=== PATIENT | female | born 1945 | race Caucasian/White ===

== ENCOUNTER → 2017-07-06 | Outpatient (CLI) | payer MEDICARE ==
[2016-09-03 10:51] VITALS: BP 140/54
[~2017-07-06] MED LIST: APIX5TAB3 PO; ASPI325T8 PO; DILT180C2 PO; DOCU-109 PO; Diltiazem Hcl PO; ESTR30CR VG; LOSA25TA4 PO; NAPR220C4 PO; NAPR250T6 PO; NAPR500T4 PO; OMEG1CAP6 PO; OMEP20CA5 PO; PROP150T2 PO; PROP225T2 PO; SOTA120T27 PO
[2017-07-06 10:24] LABS: BASO # 0.1 x10^3/uL (0.0-0.2); BASO % 1 % (0-3); EOS # 0.3 x10^3/uL (0.0-0.7); EOS % 5 % (0-3); HEMATOCRIT 36.9 % (36.0-47.0); HEMOGLOBIN 12.3 g/dL (12.0-15.5); LYMPH # 1.7 x10^3/uL (1.0-4.8); LYMPH % 29 % (24-48); MEAN CORPUSCULAR HEMOGLOBIN 31 pg (25-35); MEAN CORPUSCULAR HGB CONC 33 g/dL (31-37); MEAN CORPUSCULAR VOLUME 94 fL (79-100); MONO # 0.4 x10^3/uL (0.0-1.1); MONO % 7 % (0-9); NEUT # 3.4 x10^3uL (1.8-7.7); NEUT % 57 % (31-73); PLATELET COUNT 201 x10^3/uL (140-400); RED BLOOD COUNT 3.94 x10^6/uL (3.50-5.40); RED CELL DISTRIBUTION WIDTH 14.3 % (11.5-14.5); WHITE BLOOD COUNT 5.9 x10^3/uL (4.0-11.0)
[2017-07-06 10:31] LABS: BILIRUBIN,URINE NEG (NEG); CALCIUM 8.3 mg/dL (8.5-10.1); CLARITY,URINE CLEAR; COLOR,URINE YELLOW; CREATININE 1.1 mg/dL (0.6-1.0); GFR 49.1; GLUCOSE,URINE NEG (NEG); NITRITE,URINE NEG (NEG); POTASSIUM 4.1 mmol/L (3.5-5.1); UROBILINOGEN,URINE 0.2 mg/dL (0.2 mg/dL)
[2017-07-06 10:32] LABS: BACTERIA,URINE 0 /HPF (0-FEW); RBC,URINE 0 /HPF (0-2); SQUAMOUS EPITHELIAL CELL,UR OCC /LPF; WBC,URINE RARE /HPF (0-4)
[2017-07-06 13:45] LABS: THYROID STIM HORMONE (TSH) 4.126 uIU/mL (0.358-3.740)
== END | disposition home or self-care (01) ==
LOC: LAB 08:59
PROVIDERS: ATTEND Family Medicine
DX: E03.9 Hypothyroidism, unspecified (principal); E78.01 Familial hypercholesterolemia; I95.0 Idiopathic hypotension; R35.1 Nocturia
CPT/HCPCS: 36415; 80048; 80061; 81001; 84443; 85025

== ENCOUNTER 2017-08-19 16:41 | Emergency (ER) | payer MEDICARE ==
[~2017-08-19] VITALS: Ht 172.7 cm; Wt 116.0 kg
[2017-08-19 18:49] VITALS: BP 156/77
--- NOTE | 2017-08-19 19:15 | PHYS DOC ---
Past History Past Medical History: A-Fib Past Surgical History: Cholecystectomy, Hysterectomy Alcohol Use: None Drug Use: None Adult General Chief Complaint Chief Complaint: LOWER EXT PAIN [facility] HPI Patient is a 72 year old F who presents with left knee pain after a fall this morning. She does take Eliquis for A. fib and has noted progressively increasing swelling in the left knee with reducing range of motion and increased pain. She does not have active external bleeding. Her pain is worse with palpation and range of motion and is improved with rest and positioning. Review of Systems Review of Systems Constitutional: Denies fever or chills [] Eyes: Denies change in visual acuity, redness, or eye pain [] HENT: Denies nasal congestion or sore throat [] Respiratory: Denies cough or shortness of breath [] Cardiovascular: No additional information not addressed in HPI [] GI: Denies abdominal pain, nausea, vomiting, bloody stools or diarrhea [] : Denies dysuria or hematuria [] Musculoskeletal: Denies back pain Integument: Denies rash or skin lesions [] Neurologic: Denies headache, focal weakness or sensory changes [] Endocrine: Denies polyuria or polydipsia [] All other systems were reviewed and found to be within normal limits, except as documented in this note. Family History Family History Noncontributory Current Medications Current Medications Medications reviewed Allergies Allergies Allergies Coded Allergies Type Severity Reaction Last Updated Verified Sulfa (Sulfonamide Antibiotics) Allergy Intermediate Swelling 12/12/14 Yes [email or web address] Allergy Intermediate Swelling 01/30/15 Yes Physical Exam Physical Exam Constitutional: Well developed, well nourished, mild distress with respect to knee pain HENT: Normocephalic, atraumatic, bilateral external ears normal, oropharynx moist, no oral exudates, nose normal. [] Eyes: PERRLA, EOMI, conjunctiva normal, no discharge. [] Neck: Normal range of motion, no tenderness, supple, no stridor. [] Cardiovascular: Irregularly irregular Lungs & Thorax: Bilateral breath sounds clear to auscultation [] Abdomen: Bowel sounds normal, soft, no tenderness, no masses, no pulsatile masses. [] Skin: Warm, dry, no erythema, no rash. [] Back: No tenderness, no CVA tenderness. [] Extremities: Significant ecchymosis surrounding the left knee with reduced active and passive range of motion with extension and flexion. Leg is progressively increasing in size with increased pain Neurologic: Alert and oriented X 3, normal motor function, normal sensory function, no focal deficits noted. [] Psychologic: Affect normal, judgement normal, mood normal. [] Current Patient Data Vital Signs Vital Signs Date Time Temp Pulse Resp B/P (MAP) Pulse Ox O2 Delivery O2 Flow Rate FiO2 08/19/17 18:49 84 22 156/77 (103) 98 Room Air 08/19/17 16:48 98.1 EKG EKG [] Radiology/Procedures Radiology/Procedures Left knee x-ray - no acute disease noted Course & Med Decision Making Course & Med Decision Making Pertinent Labs and Imaging studies reviewed. (See chart for details) [] Dragon Disclaimer Dragon Disclaimer This electronic medical record was generated, in whole or in part, using a voice recognition dictation system. Departure Departure: Impression: Primary Impression: Traumatic hematoma of left knee Disposition: 05 XFER OTHER Condition: GUARDED Referrals: MARIOLA MICHAUD MD (PCP) Problem Qualifiers Primary Impression: Traumatic hematoma of left knee Encounter type: initial encounter Qualified Codes: S80.02XA - Contusion of left knee, initial encounter MARIOLA BARILLAS MD Aug 19, 2017 19:15
[2017-08-19 19:30] LABS: COLOR,URINE YELLOW
[2017-08-19 19:31] LABS: BILIRUBIN,URINE NEG (NEG); CLARITY,URINE HAZY; GLUCOSE,URINE NEG (NEG); NITRITE,URINE NEG (NEG); UROBILINOGEN,URINE 0.2 mg/dL (0.2 mg/dL)
[2017-08-19 19:32] LABS: BACTERIA,URINE MOD /HPF (0-FEW); SQUAMOUS EPITHELIAL CELL,UR MANY /LPF
--- NOTE | 2017-08-20 07:43 | RAD ---
3 views left knee radiograph 08/19/2017 Clinical indication: Fall with left knee pain and swelling. Comparison: None. Findings: No acute fracture or traumatic malalignment. There are tricompartment degenerative changes with osteophyte formation most prominent at the lateral and patellofemoral joint compartments. There is mild medial joint space narrowing. No significant knee joint effusion. There is a subcentimeter ossific density at the posterior-lateral knee. Impression: 1. No acute osseous abnormality. 2. Mild medial and lateral degenerative changes and moderate patellofemoral arthrosis. 3. Subcentimeter ossific density posterior-lateral knee, may represent intra-articular body.
== END 2017-08-19 19:10 | disposition short-term general hospital (02) ==
LOC: ER 16:45
DX: S80.02XA Contusion of left knee, initial encounter (principal); I48.91 Unspecified atrial fibrillation; Z88.2 Allergy status to sulfonamides; Z88.8 Allergy status to other drugs, medicaments and biological substances; W19.XXXA Unspecified fall, initial encounter; Y93.89 Activity, other specified; Y99.8 Other external cause status; Y92.89 Other specified places as the place of occurrence of the external cause
CPT/HCPCS: 73562; 81001; 87086; 99285-25

== ENCOUNTER 2017-09-21 18:17 | Inpatient (IN) | payer MEDICARE ==
[~2017-09-21] VITALS: Ht 170.2 cm; Wt 112.9 kg
[2017-09-21 19:54] LABS: BASO # 0.1 x10^3/uL (0.0-0.2); BASO % 1 % (0-3); EOS # 0.2 x10^3/uL (0.0-0.7); EOS % 2 % (0-3); HEMOGLOBIN 10.8 g/dL (12.0-15.5); LYMPH # 1.7 x10^3/uL (1.0-4.8); LYMPH % 16 % (24-48); MEAN CORPUSCULAR HEMOGLOBIN 30 pg (25-35); MEAN CORPUSCULAR HGB CONC 33 g/dL (31-37); MEAN CORPUSCULAR VOLUME 92 fL (79-100); MONO # 0.6 x10^3/uL (0.0-1.1); MONO % 6 % (0-9); NEUT % 75 % (31-73); PLATELET COUNT 283 x10^3/uL (140-400); RED BLOOD COUNT 3.61 x10^6/uL (3.50-5.40); RED CELL DISTRIBUTION WIDTH 14.3 % (11.5-14.5); WHITE BLOOD COUNT 10.6 x10^3/uL (4.0-11.0)
[2017-09-21 20:05] LABS: ALBUMIN/GLOBULIN RATIO 0.8 (1.0-1.7); CALCIUM 8.4 mg/dL (8.5-10.1); GFR 54.8; POTASSIUM 4.5 mmol/L (3.5-5.1); TOTAL BILIRUBIN 0.3 mg/dL (0.2-1.0); TOTAL PROTEIN 6.9 g/dL (6.4-8.2)
[2017-09-21 20:58] LABS: CLARITY,URINE CLEAR; COLOR,URINE YELLOW
[2017-09-21 20:59] LABS: BACTERIA,URINE FEW /HPF (0-FEW); BILIRUBIN,URINE NEG (NEG); GLUCOSE,URINE NEG (NEG); NITRITE,URINE NEG (NEG); SQUAMOUS EPITHELIAL CELL,UR MANY /LPF; UROBILINOGEN,URINE 0.2 mg/dL (0.2 mg/dL)
[2017-09-21 21:00] LABS: HYALINE CASTS, URINE OCC /HPF
[2017-09-21] MEDS ORDERED: ACETAMINOPHEN 325 MG TABLET PO PRN (21:30)
[2017-09-21] MEDS ORDERED: ONDANSETRON PF 4 MG/2 ML VIAL. IV PRN (21:30)
[2017-09-21] MEDS ORDERED: VALS160T3 PO (21:53)
--- NOTE | 2017-09-21 22:37 | RAD ---
PQRS Compliance Statement: One or more of the following individualized dose reduction techniques were utilized for this examination: 1. Automated exposure control 2. Adjustment of the mA and/or kV according to patient size 3. Use of iterative reconstruction technique CT head without contrast 09/21/2017 8:03 PM INDICATION: Fall, head trauma COMPARISON: Head CT August 24, 2016 TECHNIQUE: Multiple axial CT images of the head were obtained from skull base through the vertex without intravenous contrast. FINDINGS: Head: Ventricles, sulci and basal cisterns are within normal limits. There is no hydrocephalus. Pollard-white matter differentiation is normal. There is no acute intracranial hemorrhage. There is no mass, mass effect or midline shift. Posterior fossa is normal in appearance. Small extra-axial cyst is noted in the left temporal lobe. Visualized portions of the orbits are normal with exception of right glaucoma surgery. Paranasal sinuses are well aerated. Mastoid air cells are well aerated. Scalp and calvaria are normal. IMPRESSION: No acute intracranial hemorrhage. Initial preliminary interpretation was provided to the emergency room physician at 8:55 PM. Electronically signed by: Juhi Ware MD (09/21/2017 10:34 PM) [facility]
[2017-09-21 23:00] VITALS: BP 202/76
[2017-09-21 23:19] VITALS: BP 210/85
[2017-09-22] VITALS (9 sets, daily range): BP systolic 99–187; BP diastolic 45–96
[2017-09-22] MEDS: APIXABAN 5 MG TABLET. PO SCH ×3 (00:37→21:04)
[2017-09-22] MEDS: LOSARTAN 50 MG TABLET. PO SCH ×2 (00:38→07:57)
[2017-09-22] MEDS: PROPAFENONE 150 MG TABLET. PO SCH ×4 (00:39→21:05)
--- NOTE | 2017-09-22 05:22 | PHYS DOC ---
Past History Past Medical History: A-Fib Past Surgical History: No Surgical History Alcohol Use: None Drug Use: None Adult General Chief Complaint Chief Complaint: LOWEREXTREMITY INJURY HPI HPI Patient is a 72-year-old female who presents here today secondary to leg weakness to her left lower upper extremity that occurred this evening while she was walking from the bathroom or bedroom. Patient reports that while she was walking into the bedroom she normally uses a walker however on her way to the bed she started feeling weak in her left leg gave out. Family reports that she' s had issues with falling since August 2016 but the patient reports that the symptoms of be getting worse since then. Patient reports that she is falling approximately 6-7 times last several weeks. Patient reports that her last fall was a rubber 2016 which time she did come to the ER was evaluated for left knee abrasion. Patient does have a history of atrial fibrillation and is currently on a eloquis. During her fall she didn't hit her face against the floor but had no loss of consciousness. Patient reports that she still has weakness to her legs bilaterally that she thinks her left leg is weaker than her right. Upon discussing with the family reports that she always feels weaker in her left lower extremity. The feel that this is not a new issue for her although the patient reports that she does feel more weak than usual. The patient reports that she feels unsafe going home and feels unsteady. Patient reports that she is normally unsteady. Upon reviewing her past medical history she does have a history significant for ataxia as well as orthostatic hypotension and multiple falls. She has a history of atrial fibrillation and CHF. Review of systems: Constitutional: Denies fever or chills Eyes: Denies change in visual acuity, redness, or eye pain HENT: Denies nasal congestion or sore throat Respiratory: Denies cough or shortness of breath All other systems were reviewed and found to be within normal limits, except as documented in this note. Physical exam: Constitutional: Well developed, well nourished, no acute distress, non-toxic appearance. HENT: Normocephalic, atraumatic, bilateral external ears normal, nose normal. Eyes: PERRLA, EOMI, conjunctiva normal, no discharge. Neck: Normal range of motion, no tenderness, supple, no stridor. Cardiovascular: Heart rate regular rhythm, Lungs & Thorax: Bilateral breath sounds clear to auscultation Abdomen: No abdominal distention. Skin: Warm, dry, no erythema, no rash. Back: Normal spinal curvature Extremities: No tenderness, no cyanosis, no clubbing, ROM intact, no edema. Neurologic: Alert and oriented X 3, normal motor function, normal sensory function, no focal deficits noted. Psychologic: Affect normal, judgement normal, mood normal. Patient's ER physical exam was most remarkable: Patient has what appears to be a normal neurological exam at this time. Patient has 5 out of 5 motor strength in her upper and lower 70s. Patient is 5 out of 5 foot flexion and extension, 5 out of 5 knee flexion and extension, 5 out of 5 hip flexion and extension, patient's sensation is intact. Erythema around her left knee which she reports occurred from her prior fall partially 3 weeks ago. EKG as interpreted by ER physician reveals: Normal sinus rhythm at a heart of [address]-T wave abnormalities. No ST elevation OK. CT scan of head: No acute pathology, no bleed no infarct Labs reviewed: Within normal limits Assessment and plan: 1. 72-year-old female who presented to the ER today secondary to a fall reported weakness to her left lower extremity. Patient reports while walking to the bathroom her left leg gave out. Upon discussing with the family appears the patient has had weakness to her lower extremities and ataxia for approximately one and half years now is been evaluated for it fully. 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 Patient's ER workup is been unremarkable. Patient's symptoms do not appear to be consistent with an acute stroke or TIA. Patient does have a history significant for weakness to her lower extremities. Although this does not appear to be a TIA, I cannot fully prolapse out despite a normal CT scan. Patient is currently on anticoagulation therapy for atrial fibrillation. Patient's CT scan was unremarkable. Patient's overall within normal limits. Patient is currently in normal sinus rhythm on her EKG. I have discussed the case with her doctor, Dr. Patrick we've agreed to admit the patient for safety issues and her gait instability and possible evaluation by physical therapy. Allergies Allergies Allergies Coded Allergies Type Severity Reaction Last Updated Verified Sulfa (Sulfonamide Antibiotics) Allergy Intermediate Swelling 12/12/14 Yes [email or web address] Allergy Intermediate Swelling 01/30/15 Yes Current Patient Data Vital Signs Vital Signs Date Time Temp Pulse Resp B/P (MAP) Pulse Ox O2 Delivery O2 Flow Rate FiO2 09/22/17 02:15 66 157/73 (101) 95 Room Air 09/21/17 23:19 98.1 20 Lab Results Laboratory Tests Test 09/21/17 19:31 09/21/17 20:09 White Blood Count 10.6 x10^3/uL (4.0-11.0) Red Blood Count 3.61 x10^6/uL (3.50-5.40) Hemoglobin 10.8 g/dL (12.0-15.5) L Hematocrit 33.0 % (36.0-47.0) L Mean Corpuscular Volume 92 fL (79-100) Mean Corpuscular Hemoglobin 30 pg (25-35) Mean Corpuscular Hemoglobin Concent 33 g/dL (31-37) Red Cell Distribution Width 14.3 % (11.5-14.5) Platelet Count 283 x10^3/uL (140-400) Neutrophils (%) (Auto) 75 % (31-73) H Lymphocytes (%) (Auto) 16 % (24-48) L Monocytes (%) (Auto) 6 % (0-9) Eosinophils (%) (Auto) 2 % (0-3) Basophils (%) (Auto) 1 % (0-3) Neutrophils # (Auto) 8.0 x10^3uL (1.8-7.7) H Lymphocytes # (Auto) 1.7 x10^3/uL (1.0-4.8) Monocytes # (Auto) 0.6 x10^3/uL (0.0-1.1) Eosinophils # (Auto) 0.2 x10^3/uL (0.0-0.7) Basophils # (Auto) 0.1 x10^3/uL (0.0-0.2) Prothrombin Time 10.8 SEC (9.4-11.4) Prothrombin Time INR 1.1 (0.9-1.1) Sodium Level 139 mmol/L (136-145) Potassium Level 4.5 mmol/L (3.5-5.1) Chloride Level 103 mmol/L (98-107) Carbon Dioxide Level 28 mmol/L (21-32) Anion Gap 8 (6-14) Blood Urea Nitrogen 13 mg/dL (7-20) Creatinine 1.0 mg/dL (0.6-1.0) Estimated GFR (Cockcroft-Gault) 54.8 BUN/Creatinine Ratio 13 (6-20) Glucose Level 120 mg/dL (70-99) H Calcium Level 8.4 mg/dL (8.5-10.1) L Total Bilirubin 0.3 mg/dL (0.2-1.0) Aspartate Amino Transferase (AST) 12 U/L (15-37) L Alanine Aminotransferase (ALT) 15 U/L (14-59) Alkaline Phosphatase 77 U/L (46-116) Troponin I Quantitative < 0.017 ng/mL (0-0.055) Total Protein 6.9 g/dL (6.4-8.2) Albumin 3.0 g/dL (3.4-5.0) L Albumin/Globulin Ratio 0.8 (1.0-1.7) L Urine Collection Type Unknown Urine Color Yellow Urine Clarity Clear Urine pH 7.0 Urine Specific [place] 1.020 Urine Protein Neg (NEG-TRACE) Urine Glucose (UA) Neg mg/dL (NEG) Urine Ketones (Stick) 15 mg/dL (NEG) Urine Blood Neg (NEG) Urine Nitrite Neg (NEG) Urine Bilirubin Neg (NEG) Urine Urobilinogen Dipstick 0.2 mg/dL (0.2 mg/dL) Urine Leukocyte Esterase Neg (NEG) Urine RBC 1-2 /HPF (0-2) Urine WBC 1-4 /HPF (0-4) Urine Squamous Epithelial Cells Many /LPF Urine Bacteria Few /HPF (0-FEW) Urine Hyaline Casts Occ /HPF Urine Mucus Slight /LPF EKG EKG [] Radiology/Procedures Radiology/Procedures [] Course & Med Decision Making Course & Med Decision Making Pertinent Labs and Imaging studies reviewed. (See chart for details) [] Dragon Disclaimer Dragon Disclaimer This electronic medical record was generated, in whole or in part, using a voice recognition dictation system. Departure Departure: Impression: Primary Impression: Frequent falls Additional Impressions: Gait instability Ataxia involving legs Orthostatic hypotension Paroxysmal atrial fibrillation Disposition: ADMITTED INPATIENT Admitting Physician: Michael Rodríguez Condition: STABLE Problem Qualifiers MERLYN GENAO MD Sep 22, 2017 05:22
--- NOTE | 2017-09-22 05:58 | EKG ---
[address] [address] Test Date: 2017-09-21 Test Time: 19:07:02 Pat Name: TERE MARR Department: Room: Gender: F Varnish Maker: DANISHA : [id number] Requested By: MERLYN GENAO Order Number: [id number] Reading MD: Measurements Intervals [place] Rate: 68 P: 1 TX: 224 QRS: -41 QRSD: 134 T: 60 QT: 436 QTc: 464 Interpretive Statements SINUS RHYTHM PROLONGED TX INTERVAL ABNORMAL LEFT AXIS DEVIATION NON SPECIFIC INTRAVENTRICULAR BLOCK QRS(T) CONTOUR ABNORMALITY CONSIDER ANTEROSEPTAL MYOCARDIAL DAMAGE ABNORMAL ECG RI6.01 Unconfirmed report No previous ECG available for comparison
[2017-09-22] MEDS ORDERED: PROPAFENONE 150 MG TABLET. PO SCH (06:00)
[2017-09-22 06:14] LABS: BASO # 0.1 x10^3/uL (0.0-0.2); BASO % 1 % (0-3); EOS # 0.1 x10^3/uL (0.0-0.7); EOS % 1 % (0-3); HEMATOCRIT 31.6 % (36.0-47.0); HEMOGLOBIN 10.5 g/dL (12.0-15.5); LYMPH # 2.2 x10^3/uL (1.0-4.8); LYMPH % 25 % (24-48); MEAN CORPUSCULAR HEMOGLOBIN 31 pg (25-35); MEAN CORPUSCULAR HGB CONC 33 g/dL (31-37); MEAN CORPUSCULAR VOLUME 92 fL (79-100); MONO # 0.8 x10^3/uL (0.0-1.1); MONO % 9 % (0-9); NEUT # 5.6 x10^3uL (1.8-7.7); NEUT % 64 % (31-73); PLATELET COUNT 253 x10^3/uL (140-400); RED BLOOD COUNT 3.43 x10^6/uL (3.50-5.40); RED CELL DISTRIBUTION WIDTH 14.2 % (11.5-14.5); WHITE BLOOD COUNT 8.7 x10^3/uL (4.0-11.0)
[2017-09-22 06:27] LABS: ALBUMIN 2.8 g/dL (3.4-5.0); ALBUMIN/GLOBULIN RATIO 0.8 (1.0-1.7); CALCIUM 8.4 mg/dL (8.5-10.1); GFR 54.8; POTASSIUM 4.1 mmol/L (3.5-5.1); TOTAL BILIRUBIN 0.4 mg/dL (0.2-1.0); TOTAL PROTEIN 6.4 g/dL (6.4-8.2)
[2017-09-22] MEDS ORDERED: APIXABAN 5 MG TABLET. PO SCH (09:00)
[2017-09-22] MEDS ORDERED: NON FORMULARY ITEM (Valsartan (Diovan) 1 TAB) PO SCH (09:00)
[2017-09-22] MEDS ORDERED: ACETAMINOPHEN 500 MG TABLET PO PRN (10:15)
[2017-09-22] MEDS: PROMETHAZINE 12.5 MG in IV NORMAL SALINE 50ML 50 ML IV PRN (10:37)
--- NOTE | 2017-09-22 12:42 | PDOC2 ---
RADHA VALENZUELA PAYROLL BOOKKEEPER 09/22/17 1242: CONSULT Date of Admission DATE: 09/22/17 TIME: 12:25 Reason for Consult: Atrial fibrillation and hypertension Referring Physician: Dr Rodríguez Problem List Problems Medical Problems: (1) Ataxia involving legs Status: Acute (2) Frequent falls Status: Acute (3) Gait instability Status: Acute (4) Orthostatic hypotension Status: Acute (5) Paroxysmal atrial fibrillation Status: Acute History of Present Illness History of present illness - This is a pleasant 72-year-old female who presented to the emergency room after a fall with chief complaint of weakness.She has a history of paroxysmal atrial fibrillation, hypertension, orthostatic hypotension, a mild-moderate ascending aortic aneurysm, aortic regurgitation, an abnormal ECG, and obesity. Yesterday she had gotten up to the bathroom and when she tried to stand back up and pull her clothes up she felt very weak in her legs. She sat back down on the edge and waited for a while to try to get her bearings about her and when she thought she was good she used her walker to walk back to her bed. She fell face 1st and her walker went out from under her. Her was at the grocery store at the time so she laid there about 25 minutes before they were able to call the ambulance to come and pick her up. She denies any loss of consciousness and reports that both of her legs were feeling weak not just 1 or the other. She has had multiple falls over the last several weeks due to leg weakness. A CT scan was done in the emergency room that did not show any acute changes. Her blood pressure on admission was greater than 200 systolic and this morning after taking her home medication she is in the 120 systolic. Her EKG on admission is sinus rhythm and she has been taking her propafenone without fail. She denies any progressive dyspnea, chest pain or palpitations. Past Medical History Thoracic Aortic Aneurysm Atrial Fibrillation: Y Hypertension: Y Valvular Heart Disease: Y Acid Reflux (GERD): Y Surgical History Hysterectomy - 10/05/2004 Repair retinal detach cplx - 10/05/2004 Cholecystectomy - 10/05/1969 Allergies MULTAQ: Diarrhea (Moderate) SULFA (SULFONAMIDE ANTIBIOTICS) Medications Eliquis 5 mg tabletTake 1 tablet(s) twice a day fludrocortisone 0.1 mg tabletTake 1 tablet(s) every day Premarin 0.625 mg/gram vaginal creamtwice weekly propafenone 225 mg tablet1 tab 3 times daily traMADol 50 mg tabletas needed Family History Father - Peritonitis ( age: 56) Mother - Cardiomyopathy - Acute hyperkalemia ( age: 77) Social History Marital status: Live alone or with others?: with others Number of children: 2 Diet: Regular Exercise level: None (Notes: exercise on hold due to eyes) Smoking Status: Never smoker Alcohol intake: None Caffeine intake: Moderate (Notes: 2 cups daily) Review of systems- 10 point review of systems is negative except for as in history of present illness. Physical Exam Patient is a 72-year-old female. Constitutional: General Appearance: obese. Level of Distress: NAD. Ambulation: ambulation with walker. Psychiatric: Mental Status: normal mood and affect and active and alert. Orientation: to time, place, and person. Head: Head: normocephalic and atraumatic. Eyes: Lids and Conjunctivae: non-injected; No xanthelasma. EOM: EOMI. Lungs: Auscultation: no wheezing, rales/crackles, or rhonchi and breath sounds normal, good air movement, and CTA except as noted. Cardiovascular: Apical Impulse: not displaced. Heart Auscultation: normal S1 and S2; no murmurs, rubs, or gallops; and RRR. Neck vessels: no carotid bruits; Jugular venous pressure not elevated. Abdomen: Bowel Sounds: normal. Inspection and Palpation: soft and no tenderness. Musculoskeletal:: Motor Strength and Tone: normal tone and motor strength. Extremities: no cyanosis and edema; 2+ left pretibial edema.. Neurologic: Gait and Station: Walking with a walker.. Cranial Nerves: grossly intact. Skin: Inspection and palpation: no rash or lesions. Back: Thoracolumbar Appearance: normal curvature. Procedures: ECHOCARDIOGRAM IMPRESSION (08/21/2017): The left ventricle is normal size. There is mild concentric left ventricular hypertrophy. Left ventricle systolic function is normal. The ejection fraction is 55-60%. The left atrium is moderately dilated. There is mild to moderate aortic regurgitation. There is mild mitral regurgitation. There is mild tricuspid regurgitation. The PA pressure was estimated at 13 mmHg. The ascending aorta appears mildly dilated. ECHOCARDIOGRAM IMPRESSION (04/27/2017): The left ventricle appears mildly dilated. There is mild concentric left ventricular hypertrophy. No significant regional wall motion abnormalities are identified. The left ventricular systolic function is normal with a visually estimated ejection fraction of 55-60%. There is evidence of impaired left ventricular relaxation suggestive of stage I diastolic dysfunction. The left atrium appears severely dilated. The right atrium appears mildly dilated. The aortic root appears mildly dilated at 3.6 cm. The proximal ascending aorta appears moderately dilated at 4.4 cm. There is mild aortic valve sclerosis. There is moderate aortic, mitral and tricuspid regurgitation. The estimated pulmonary artery systolic pressure is 44 mmHg, consistent with mild pulmonary hypertension. Compared to the report (images were not available for review) of the study dated 04/08/2016, the dilatation of the left ventricle is a new finding. The dilatation of the ascending aorta and the left atrium have progressed. BILATERAL LOWER EXTREMITY VENOUS ULTRASOUND (09/01/2016): There is no sonographic evidence of deep vein thrombosis in either lower extremity. ELECTROCARDIOGRAM (08/31/2016): Sinus bradycardia at 59 bpm with 1st degree AV block, left anterior hemiblock, poor R-wave progression and nonspecific ST-T wave changes. DIRECT CURRENT CARDIOVERSION REPORT (07/04/2016): Status post successful direct current cardioversion for paroxysmal atrial fibrillation with one synchronized biphasic shock at 150 joules with successful conversion to sinus rhythm. ELECTROCARDIOGRAM (06/19/2016): Atrial fibrillation with a ventricular rate of 78 bpm, low voltage in the precordial leads, left anterior hemiblock, poor R wave progression and diffuse nonspecific ST-T wave changes. CARDIOVERSION (05/20/2016): Successful cardioversion with a single shock of 150 joules. LEXISCAN NUCLEAR STRESS TEST IMPRESSION (04/08/2016): Hemodynamic response: There was a normal heart rate and a normal blood pressure response to stress. Clinical response: There was chest pressure during stress, which resolved during recovery. This is considered a nonspecific finding with Lexiscan infusion. Arrhythmias: Atrial fibrillation. Stress ECG: There were no significant stress induced ECG changes. Myocardial perfusion: Normal perfusion without evidence of infarction or ischemia. Wall motion: Normal. Ejection fraction: 68%. Compared to the report (images were not available for review) from the previous study performed on 01/01/2015, there was no significant change. ECHOCARDIOGRAM IMPRESSION (04/08/2016): The left ventricle is normal in size. There is mild concentric left ventricular hypertrophy. No significant regional wall motion abnormalities are identified. The left ventricular systolic function is normal with an estimated ejection fraction of 70-75%. The left ventricular diastolic function could not be determined on this study. There is mild bi-atrial dilatation. The aortic root appears mildly dilated at 3.7 cm. The proximal ascending aorta appears mildly dilated at 4.1 cm. The inferior vena cava is dilated but does respond normally to respiration, which is consistent with mildly elevated right atrial pressure. There is mild aortic valve sclerosis. There is mild aortic and mitral regurgitation. There is moderate tricuspid regurgitation. The estimated pulmonary artery systolic pressure is 41 mmHg, consistent with mild pulmonary hypertension. Compared to the report (images were not available for review) of the study dated 12/13/2014, the right atrial and aortic root dilatation and mild pulmonary hypertension are new findings. MOBILE CARDIAC OUTPATIENT TELEMETRY (04/01/2016): 1. This is a 14-day mobile cardiac outpatient telemetry report. 2. Baseline atrial fibrillation with an average heart rate of 68 beats per minute, ranging from 38 to 120 beats per minute with several pauses exceeding 2 seconds with a maximum duration of 2.6 seconds. The patient was in atrial fibrillation for 90% of the recording time. 3. When the patient was in sinus rhythm, the average heart rate was 68 beats per minute, ranging from 40 to 120 beats per minute. However, this was only about 10% of the recording time. Assessment / Plan 1. Paroxysmal atrial fibrillation - She seems to be remaining in sinus rhythm. For now we will continue on Eliquis for stroke prevention and have her work with PT and OT to regain her balance and strength. If she continues to be dangerously unsteady we may have to re-evaluate her anticoagulation. Continue on propafenone for rhythm management. No AV marina blockers due to orthostatic hypotension. I should note, she had a normal stress test in April 2016 and is not known to have coronary artery disease. However, as she continues to get older, we may want to consider an alternative antiarrhythmic drug. 2. Hypertension -she was seen yesterday in the office for blood pressure check and her blood pressure was in the 170 systolic. We started her on Diovan 160 daily and she has picked up from [facility]. In the hospital we have been giving her losartan and her blood pressure is under control today. 3. Thoracic aortic aneurysm without rupture - Her ascending aorta has enlarged slightly over the past year. This is still not in a range that would require surgery. We will continue to follow this with yearly echocardiograms. 4. Aortic valve regurgitation - She just had an echocardiogram when she was in the hospital in this again confirmed [id number] aortic regurgitation. This will need to be followed with yearly echocardiograms. Current Medications Current Medications Ondansetron HCl (Zofran) 4 mg PRN Q4HRS PRN IV NAUSEA/VOMITING Last administered on 09/22/17 10:37; Start 09/21/17 at 21:30; Stop 09/22/17 at 21 :29 Acetaminophen (Tylenol) 650 mg PRN Q4HRS PRN PO FEVER; Start 09/21/17 at 21:30 ; Stop 09/22/17 at 21:29 Apixaban (Eliquis) 5 mg BID PO ; Start 09/22/17 at 09:00; Stop 09/22/17 at 09: 00; Status DC Propafenone HCl (Rythmol) 225 mg Q8HRS PO ; Start 09/22/17 at 06:00; Stop at 06:00; Status DC Non-Formulary Medication 1 tab DAILY PO ; Start 09/22/17 at 09:00; Stop at 09:00; Status DC Apixaban (Eliquis) 5 mg BID PO Last administered on 09/22/17 07:56; Start at 23:30 Propafenone HCl (Rythmol) 225 mg Q8HRS PO Last administered on 09/22/17 06:12 ; Start 09/21/17 at 23:30 Losartan Potassium (Cozaar) 100 mg DAILY PO Last administered on 09/22/17 07: 57; Start 09/22/17 at 00:30 Promethazine HCl 12.5 mg/Sodium Chloride 50.5 ml @ 101 mls/hr PRN Q6HRS PRN IV NAUSEA Last administered on 09/22/17 10:37; Start 09/22/17 at 09:45 Acetaminophen (Tylenol) 1,000 mg PRN Q6HRS PRN PO PAIN / TEMP Last administered on 09/22/17 10:37; Start 09/22/17 at 10:15 Tramadol HCl (Ultram) 50 mg PRN Q6HRS PRN PO PAIN; Start 09/22/17 at 10:15 Active Scripts Active Propafenone Hcl 150 Mg Tablet 225 Mg PO Q8HRS Eliquis (Apixaban) 5 Mg Tablet 5 Mg PO BID 0 Days Reported Diovan (Valsartan) 160 Mg Tablet 1 Tab PO DAILY Allergies: Coded Allergies: Sulfa (Sulfonamide Antibiotics) (Verified Allergy, Intermediate, Swelling , 09/22/17) dronedarone (Verified Allergy, Intermediate, Swelling, 09/22/17) Swelling/weakness/numbness VITALS Vital Signs Date Time Temp Pulse Resp B/P (MAP) Pulse Ox O2 Delivery O2 Flow Rate FiO2 09/22/17 11:00 50 20 124/71 (88) 96 Room Air 09/21/17 23:19 98.1 Labs Laboratory Tests Test 09/21/17 19:31 09/21/17 20:09 09/22/17 05:45 White Blood Count 10.6 x10^3/uL (4.0-11.0) 8.7 x10^3/uL (4.0-11.0) Red Blood Count 3.61 x10^6/uL (3.50-5.40) 3.43 x10^6/uL (3.50-5.40) Hemoglobin 10.8 g/dL (12.0-15.5) 10.5 g/dL (12.0-15.5) Hematocrit 33.0 % (36.0-47.0) 31.6 % (36.0-47.0) Mean Corpuscular Volume 92 fL (79-100) 92 fL (79-100) Mean Corpuscular Hemoglobin 30 pg (25-35) 31 pg (25-35) Mean Corpuscular Hemoglobin Concent 33 g/dL (31-37) 33 g/dL (31-37) Red Cell Distribution Width 14.3 % (11.5-14.5) 14.2 % (11.5-14.5) Platelet Count 283 x10^3/uL (140-400) 253 x10^3/uL (140-400) Neutrophils (%) (Auto) 75 % (31-73) 64 % (31-73) Lymphocytes (%) (Auto) 16 % (24-48) 25 % (24-48) Monocytes (%) (Auto) 6 % (0-9) 9 % (0-9) Eosinophils (%) (Auto) 2 % (0-3) 1 % (0-3) Basophils (%) (Auto) 1 % (0-3) 1 % (0-3) Neutrophils # (Auto) 8.0 x10^3uL (1.8-7.7) 5.6 x10^3uL (1.8-7.7) Lymphocytes # (Auto) 1.7 x10^3/uL (1.0-4.8) 2.2 x10^3/uL (1.0-4.8) Monocytes # (Auto) 0.6 x10^3/uL (0.0-1.1) 0.8 x10^3/uL (0.0-1.1) Eosinophils # (Auto) 0.2 x10^3/uL (0.0-0.7) 0.1 x10^3/uL (0.0-0.7) Basophils # (Auto) 0.1 x10^3/uL (0.0-0.2) 0.1 x10^3/uL (0.0-0.2) Prothrombin Time 10.8 SEC (9.4-11.4) Prothromb Time International Ratio 1.1 (0.9-1.1) Sodium Level 139 mmol/L (136-145) 141 mmol/L (136-145) Potassium Level 4.5 mmol/L (3.5-5.1) 4.1 mmol/L (3.5-5.1) Chloride Level 103 mmol/L (98-107) 106 mmol/L (98-107) Carbon Dioxide Level 28 mmol/L (21-32) 29 mmol/L (21-32) Anion Gap 8 (6-14) 6 (6-14) Blood Urea Nitrogen 13 mg/dL (7-20) 10 mg/dL (7-20) Creatinine 1.0 mg/dL (0.6-1.0) 1.0 mg/dL (0.6-1.0) Estimated GFR (Cockcroft-Gault) 54.8 54.8 BUN/Creatinine Ratio 13 (6-20) 10 (6-20) Glucose Level 120 mg/dL (70-99) 100 mg/dL (70-99) Calcium Level 8.4 mg/dL (8.5-10.1) 8.4 mg/dL (8.5-10.1) Total Bilirubin 0.3 mg/dL (0.2-1.0) 0.4 mg/dL (0.2-1.0) Aspartate Amino Transf (AST/SGOT) 12 U/L (15-37) 11 U/L (15-37) Alanine Aminotransferase (ALT/SGPT) 15 U/L (14-59) 15 U/L (14-59) Alkaline Phosphatase 77 U/L (46-116) 72 U/L (46-116) Troponin I Quantitative < 0.017 ng/mL (0-0.055) Total Protein 6.9 g/dL (6.4-8.2) 6.4 g/dL (6.4-8.2) Albumin 3.0 g/dL (3.4-5.0) 2.8 g/dL (3.4-5.0) Albumin/Globulin Ratio 0.8 (1.0-1.7) 0.8 (1.0-1.7) Urine Collection Type Unknown Urine Color Yellow Urine Clarity Clear Urine pH 7.0 Urine Specific Severy 1.020 Urine Protein Neg (NEG-TRACE) Urine Glucose (UA) Neg mg/dL (NEG) Urine Ketones (Stick) 15 mg/dL (NEG) Urine Blood Neg (NEG) Urine Nitrite Neg (NEG) Urine Bilirubin Neg (NEG) Urine Urobilinogen Dipstick 0.2 mg/dL (0.2 mg/dL) Urine Leukocyte Esterase Neg (NEG) Urine RBC 1-2 /HPF (0-2) Urine WBC 1-4 /HPF (0-4) Urine Squamous Epithelial Cells Many /LPF Urine Bacteria Few /HPF (0-FEW) Urine Hyaline Casts Occ /HPF Urine Mucus Slight /LPF NILTON AVENDAÑO Jr, MD 09/23/17 0600: CONSULT Allergies: Coded Allergies: Sulfa (Sulfonamide Antibiotics) (Verified Allergy, Intermediate, Swelling , 09/22/17) dronedarone (Verified Allergy, Intermediate, Swelling, 09/22/17) Swelling/weakness/numbness Assessment/Plan The patient was seen by Radha Valenzuela APRN, and I have reviewed her findings and plan and agree with above. Due to staffing constraints, we did not have an attending available on this day to see the patient. Problems: RADHA VALENZUELA APRN Sep 22, 2017 12:42 NILTON AVENDAÑO Jr, MD Sep 23, 2017 06:00
--- NOTE | 2017-09-22 14:17 | RAD ---
Indication: Low back pain and leg weakness. Time of exam 1402 hours. Curvature and alignment is normal. Vertebral body heights are maintained. No acute compression fracture is seen. There is some degenerative disc disease L1-2 and L2-3 levels with marginal osteophyte formation. There is also degenerative disc disease T10-11 level. Impression: Spondylosis. No acute bony abnormality is detected.
[2017-09-22] MEDS ORDERED: SOLI10TA2 PO (14:33)
--- NOTE | 2017-09-22 15:47 | HP ---
ADMIT DATE: 09/21/2017 The patient came in last night through the Emergency Room with generalized weakness in her lower extremities. The patient has been falling and been having problems with being steady on her feet. The patient herself says she has fallen a couple times ____ walking and legs just give out, feel very weak and wobbly and does not seem to be able to maintain her balance. So, in any case, the patient was admitted because of this generalized weakness. She has no other neurological phenomenon going on, I mean there is no evidence of any visual changes, headaches, blurred vision, double vision. There is decreased strength on exam of her left leg, especially we will see the results ____ later, but other than that seems to be basically stable because of this increased weakness. She has significant abrasion to her left knee, the patient fell striking the left knee again, but there was no loss of consciousness or hitting the head. CT scan of the head was unremarkable. The patient was admitted for further evaluation and treatment of this generalized weakness. DICTATION ENDS HERE MARIOLA MICHAUD MD DR: EMILY/althea JOB#: [id number] / [id number]
[2017-09-22] MEDS: OXYBUTYNIN CHLORIDE 5 MG TABLET PO SCH ×2 (15:52→21:05)
[2017-09-22] MEDS ORDERED: IOHEXOL 300 MG/ML 75 ML VIAL. IV ONE (19:30)
--- NOTE | 2017-09-22 20:36 | RAD ---
CTA scan of the Chest with Contrast (Pulmonary Embolism protocol) 09/22/2017 Clinical History: Elevated d-dimer with shortness of breath. Technique: After the intravenous administration of 75 cc of Isovue-370, contiguous, 0.625 mm axial sections were obtained through the chest. 3 mm axial and 3D MIP coronal and sagittal reconstructed images were obtained. One or more of the following individualized dose reduction techniques were utilized for this study: 1. Automated exposure control. 2. Adjustment of the mA and/or kV according to patient size. 3. Use of iterative reconstruction technique. Findings: No filling defect is seen within the major branches of either pulmonary artery. There is no CT evidence of pulmonary embolism. The heart is mildly enlarged. Scattered atherosclerotic plaque formation is seen involving the thoracic aorta and its branches. The thoracic aorta is tortuous but tapers normally. Minimal dependent subsegmental atelectasis is seen involving both lungs. No area of consolidation, pleural effusion or pneumothorax is seen. Impression: There is no CT evidence of pulmonary embolism. Electronically signed by: Gatito Ledezma MD (09/22/2017 8:33 PM) [place] [id number]
[2017-09-22] MEDS: traMADol 50 MG TABLET PO PRN (21:05)
[2017-09-23] VITALS (8 sets, daily range): BP systolic 100–219; BP diastolic 53–86
[2017-09-23] MEDS: PROPAFENONE 150 MG TABLET. PO SCH ×3 (06:11→21:46)
[2017-09-23 06:41] LABS: BASO # 0.1 x10^3/uL (0.0-0.2); BASO % 1 % (0-3); EOS # 0.2 x10^3/uL (0.0-0.7); EOS % 3 % (0-3); HEMATOCRIT 31.4 % (36.0-47.0); HEMOGLOBIN 10.4 g/dL (12.0-15.5); LYMPH # 2.3 x10^3/uL (1.0-4.8); LYMPH % 37 % (24-48); MEAN CORPUSCULAR HEMOGLOBIN 30 pg (25-35); MEAN CORPUSCULAR HGB CONC 33 g/dL (31-37); MEAN CORPUSCULAR VOLUME 92 fL (79-100); MONO # 0.6 x10^3/uL (0.0-1.1); MONO % 9 % (0-9); NEUT % 49 % (31-73); PLATELET COUNT 259 x10^3/uL (140-400); RED BLOOD COUNT 3.42 x10^6/uL (3.50-5.40); RED CELL DISTRIBUTION WIDTH 14.7 % (11.5-14.5); WHITE BLOOD COUNT 6.2 x10^3/uL (4.0-11.0)
[2017-09-23 06:45] LABS: CALCIUM 8.3 mg/dL (8.5-10.1); CREATININE 1.2 mg/dL (0.6-1.0); GFR 44.4; MAGNESIUM 2.1 mg/dL (1.8-2.4); POTASSIUM 4.2 mmol/L (3.5-5.1)
[2017-09-23] MEDS: traMADol 50 MG TABLET PO PRN (07:29)
[2017-09-23] MEDS: LOSARTAN 50 MG TABLET. PO SCH (07:29)
[2017-09-23] MEDS: OXYBUTYNIN CHLORIDE 5 MG TABLET PO SCH ×3 (07:29→21:46)
[2017-09-23] MEDS: APIXABAN 5 MG TABLET. PO SCH (07:29)
[2017-09-23] MEDS: PROMETHAZINE 12.5 MG in IV NORMAL SALINE 50ML 50 ML IV PRN (09:49)
--- NOTE | 2017-09-23 11:16 | RAD ---
CT scan of the head without contrast 09/23/2017 Clinical History: Weakness, recent falls and headaches. Technique: Unenhanced, contiguous, 5 mm axial sections were obtained through the head. One or more of the following individualized dose reduction techniques were utilized for this study: 1. Automated exposure control. 2. Adjustment of the mA and/or kV according to patient size. 3. Use of iterative reconstruction technique. Findings: Comparison study is dated 09/21/2017. There is generalized parenchymal atrophy. Small scattered areas of decreased attenuation are seen within the periventricular and subcortical white matter of both cerebral hemispheres consistent with areas of small vessel ischemic disease. No acute parenchymal abnormality is seen. No extra-axial fluid collection is noted. No skull fracture is seen. Impression: No acute intracranial abnormality is seen.
[2017-09-23] MEDS: MIDODRINE 2.5 MG TABLET PO SCH ×2 (12:19→18:00)
[2017-09-23] MEDS ORDERED: SCOPOLAMINE 1.5MG PATCH. TD SCH (13:15)
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
--- NOTE | 2017-09-23 13:37 | PDOC ---
SUBJECTIVE Subjective: Ms. Liu has remained stable. She continues to report symptoms of dizziness and lightheadedness. She denies chest pain, shortness of breath, palpitations, or actual syncope. She has been having nausea, but denies any actual vomiting. Exam Constitutional: Denies fever or chills Eyes: Denies change in visual acuity HENT: Denies nasal congestion or sore throat Respiratory: Denies cough or shortness of breath Cardiovascular: Denies chest pain or edema GI: Denies abdominal pain, nausea, vomiting, bloody stools or diarrhea : Denies dysuria Musculoskeletal: Denies back pain or joint pain Integument: Denies rash Neurologic: Denies headache, focal weakness or sensory changes Endocrine: Denies polyuria or polydipsia Lymphatic: Denies swollen glands Psychiatric: Denies depression or anxiety OBJECTIVE Vital Signs Vital Signs Date Time Temp Pulse Resp B/P (MAP) Pulse Ox O2 Delivery O2 Flow Rate FiO2 09/23/17 12:19 80 09/23/17 11:00 18 183/73 (109) 94 Room Air 09/23/17 07:06 98.6 Physical Exam Constitutional: Well developed, well nourished, no acute distress, non-toxic appearance. HENT: Normocephalic, atraumatic, bilateral external ears normal, oropharynx moist, no oral exudates, nose normal. Eyes: RENA, EOMI, conjunctiva normal, no discharge. Neck: Normal range of motion, no tenderness, supple, no stridor. Cardiovascular: JVP not elevated. No carotid bruit. Nor precordial pulsations or heaves. S1 N,S2N. No murmurs. No rubs or clicks. Thorax and Lungs: NOrmal respiration. Normal chest expansion. Normal to percuss. Equal breath sounds. No crackles. No wheeze. Abdomen: Bowel sounds normal, soft, no tenderness, no masses, no pulsatile masses. Skin: Warm, dry, no erythema, no rash. Back: No tenderness, no CVA tenderness. Extremities: Intact distal pulses, no tenderness, no cyanosis, no clubbing, ROM intact, no edema. Neurologic: Alert and oriented X 3, normal motor function, normal sensory function, no focal deficits noted. Psychologic: Affect normal, judgement normal, mood normal. Lab Laboratory Tests Test 09/22/17 17:09/23/17 06:10 Erythrocyte Sedimentation Rate 36 (0-25) H D-Dimer (Gwendolyn) 3.41 mg/L (0.00-0.50) H White Blood Count 6.2 x10^3/uL (4.0-11.0) Red Blood Count 3.42 x10^6/uL (3.50-5.40) L Hemoglobin 10.4 g/dL (12.0-15.5) L Hematocrit 31.4 % (36.0-47.0) L Mean Corpuscular Volume 92 fL (79-100) Mean Corpuscular Hemoglobin 30 pg (25-35) Mean Corpuscular Hemoglobin Concent 33 g/dL (31-37) Red Cell Distribution Width 14.7 % (11.5-14.5) H Platelet Count 259 x10^3/uL (140-400) Neutrophils (%) (Auto) 49 % (31-73) Lymphocytes (%) (Auto) 37 % (24-48) Monocytes (%) (Auto) 9 % (0-9) Eosinophils (%) (Auto) 3 % (0-3) Basophils (%) (Auto) 1 % (0-3) Neutrophils # (Auto) 3.0 x10^3uL (1.8-7.7) Lymphocytes # (Auto) 2.3 x10^3/uL (1.0-4.8) Monocytes # (Auto) 0.6 x10^3/uL (0.0-1.1) Eosinophils # (Auto) 0.2 x10^3/uL (0.0-0.7) Basophils # (Auto) 0.1 x10^3/uL (0.0-0.2) Sodium Level 140 mmol/L (136-145) Potassium Level 4.2 mmol/L (3.5-5.1) Chloride Level 105 mmol/L (98-107) Carbon Dioxide Level 30 mmol/L (21-32) Anion Gap 5 (6-14) L Blood Urea Nitrogen 11 mg/dL (7-20) Creatinine 1.2 mg/dL (0.6-1.0) H Estimated GFR (Cockcroft-Gault) 44.4 Glucose Level 90 mg/dL (70-99) Calcium Level 8.3 mg/dL (8.5-10.1) L Magnesium Level 2.1 mg/dL (1.8-2.4) MEDICATIONS Medications Current Medications Medications (Trade) Dose Ordered Sig/Harry Start Time Stop Time Status Last Admin Dose Admin Acetaminophen (Tylenol) 1,000 mg PRN Q6HRS PRN 09/22/17 10:15 09/22/17 10:37 1,000 MG Apixaban (Eliquis) 5 mg BID 09/21/17 23:30 09/23/17 10:36 DC 09/23/17 07:29 5 MG Iohexol (Omnipaque 300 Mg/ml) 75 ml 1X ONCE 09/22/17 19:30 09/22/17 19:31 DC 09/22/17 19:58 75 ML Losartan Potassium (Cozaar) 50 mg DAILY 09/24/17 09:00 Midodrine (Proamatine) 2.5 mg [id number] 09/23/17 13:00 09/23/17 12:19 2.5 MG Non-Formulary Medication 1 tab DAILY 09/22/17 09:00 09/22/17 09:00 DC Ondansetron HCl (Zofran) 4 mg PRN Q4HRS PRN 09/21/17 21:30 09/22/17 21:29 DC 09/22/17 10:37 4 MG Oxybutynin Chloride (Ditropan) 5 mg [id number] 09/22/17 15:00 09/23/17 12:19 5 MG Promethazine HCl 12.5 mg/Sodium Chloride 50.5 ml @ 101 mls/hr PRN Q6HRS PRN 09/22/17 09:45 09/23/17 09:49 101 MLS/HR Propafenone HCl (Rythmol) 225 mg Q8HRS 09/21/17 23:30 09/23/17 12:19 225 MG Scopolamine (Transderm-Scop) 1 patch Q3DAYS 09/23/17 13:15 Tramadol HCl (Ultram) 50 mg PRN Q6HRS PRN 09/22/17 10:15 09/23/17 07:29 50 MG PLAN Plan 1. Orthostatic hypotension 2. Dizziness 3. Paroxysmal atrial fibrillation, currently in NSR 4. Aortic valve regurgitation 5. Ascending aortic aneurysm Ms. Neal has remained hemodynamically stable. Unfortunately, however, she reports persistent dizziness. Her symptoms do appear to be quite debilitating this morning. She does report some nausea, but has not had any significant vomiting. According to nursing staff, the patient is quite orthostatic as well. I did review her telemetry, which does not demonstrate any significant arrhythmias. She has remained in normal sinus rhythm on her current regimen of propafenone. The patient does have occasional bradycardia, but this seems to be self-limited. On examination, the patient does appear to be mostly euvolemic. Interestingly, the patient's antihypertensive regimen was intensified prior to her most recent hospitalization. I question whether or not this is playing a role in her current symptoms. I have taken the liberty of decreasing her losartan to 50 mg daily. Although the patient may be more significantly hypertensive with this regimen, I think a conservative approach to her antihypertension treatment is necessary given her underlying orthostasis and advanced age. I have asked that compression stockings be placed. In addition, the patient does report recurrent falls. With her ongoing dizziness and risk of fall, I do not think the patient is a good candidate for chronic anticoagulation. I have asked the nursing staff to discontinue her Eliquis. This, obviously, can be readdressed in the future if the patient becomes more stable. If patient's symptoms persist despite more lenient blood pressure control, further neurologic workup may be indicated to rule out CVA. We will continue to follow along. Please call with further questions. NEDRA CORTEZ MD Sep 23, 2017 13:37
[2017-09-23] MEDS ORDERED: HALOPERIDOL LACT 5 MG/ML VIAL. ONE (16:27)
[2017-09-23] MEDS ORDERED: HALOPERIDOL LACT 5 MG/ML VIAL. IVP PRN (16:30)
[2017-09-23] MEDS ORDERED: HALOPERIDOL LACT 5 MG/ML VIAL. IVP ONE (17:00)
--- NOTE | 2017-09-24 00:08 | PN ---
DATE: SUBJECTIVE: A 72-year-old female in with generalized weakness, falling multiple falls, was taken off her Eliquis. Otherwise, the patient has made little bit of progress, but still very weak on that left side. The patient's scans have been basically negative and the patient continues to be monitored carefully as such. She does have a significant orthostatic drop, one time it was noted apparently a 60-80 mmHg drop in her blood pressure, which ____ she has been falling quite a bit. The patient will be started on midodrine for that. Otherwise, the patient is alert and oriented. OBJECTIVE: VITAL SIGNS: Blood pressure presently 180/73 lying down, respiratory 18, pulse 60, afebrile. GENERAL: The patient is alert and oriented. LUNGS: Diminished, but clear. CARDIOVASCULAR: Regular sinus rhythm. ABDOMEN: Soft, nontender. Left knee still kind of swollen and tender to that area there. EXTREMITIES: Without clubbing, cyanosis. Trace edema. NEUROLOGIC: The patient is alert and oriented x 3. IMPRESSION: Multiple falls, syncopal spells. PLAN: As above, continue to monitor the patient accordingly to make further evaluation on her for her orthostatic hypotension, morbid obesity, type 2 diabetes, chronic kidney disease. MARIOLA MICHAUD MD DR: EMILY/althea JOB#: [id number] / [id number]
[2017-09-24 03:19] VITALS: BP 95/58
[2017-09-24 06:25] VITALS: BP 180/89
[2017-09-24 06:27] VITALS: BP 180/89
[2017-09-24] MEDS: PROPAFENONE 150 MG TABLET. PO SCH (06:27)
[2017-09-24] MEDS: MIDODRINE 2.5 MG TABLET PO SCH (06:27)
[2017-09-24 06:32] LABS: BASO # 0.1 x10^3/uL (0.0-0.2); BASO % 2 % (0-3); EOS # 0.4 x10^3/uL (0.0-0.7); EOS % 5 % (0-3); HEMATOCRIT 32.8 % (36.0-47.0); HEMOGLOBIN 10.7 g/dL (12.0-15.5); LYMPH # 2.3 x10^3/uL (1.0-4.8); LYMPH % 29 % (24-48); MEAN CORPUSCULAR HEMOGLOBIN 30 pg (25-35); MEAN CORPUSCULAR HGB CONC 33 g/dL (31-37); MEAN CORPUSCULAR VOLUME 91 fL (79-100); MONO # 0.7 x10^3/uL (0.0-1.1); MONO % 9 % (0-9); NEUT # 4.6 x10^3uL (1.8-7.7); NEUT % 56 % (31-73); PLATELET COUNT 250 x10^3/uL (140-400); RED BLOOD COUNT 3.58 x10^6/uL (3.50-5.40); RED CELL DISTRIBUTION WIDTH 14.4 % (11.5-14.5); WHITE BLOOD COUNT 8.1 x10^3/uL (4.0-11.0)
[2017-09-24 06:40] LABS: CALCIUM 8.2 mg/dL (8.5-10.1); CREATININE 1.2 mg/dL (0.6-1.0); GFR 44.4; MAGNESIUM 2.1 mg/dL (1.8-2.4)
[2017-09-24] MEDS ORDERED: MAGNESIUM HYDROXIDE 2,400 MG/30 ML ORAL.SUSP. PO PRN (07:00)
[2017-09-24] MEDS ORDERED: LOSARTAN 50 MG TABLET. ONE (07:17)
[2017-09-24] MEDS: OXYBUTYNIN CHLORIDE 5 MG TABLET PO SCH (07:52)
[2017-09-24] MEDS ORDERED: LOSARTAN 50 MG TABLET. PO SCH (09:00)
[2017-09-24] MEDS ORDERED: SCOP1PAT TD (09:18)
[2017-09-24] MEDS ORDERED: MIDO2.5T PO ×2 (09:18→09:41)
[2017-09-24] MEDS ORDERED: LOSA50TA2 PO (09:18)
[2017-09-24] MEDS ORDERED: VALS160T21 PO (09:36)
[2017-09-24] MEDS ORDERED: ACET500T68 PO (09:38)
[2017-09-24] MEDS ORDERED: DOCU-109 PO (09:38)
[2017-09-24] MEDS ORDERED: OMEP20TA63 PO (09:41)
--- NOTE | 2017-09-24 09:49 | PDOC ---
WARD VALENZUELA [employer] 09/24/17 0949: PROGRESS NOTES Diagnosis Problem Problems Medical Problems: (1) Ataxia involving legs Status: Acute (2) Frequent falls Status: Acute (3) Gait instability Status: Acute (4) Orthostatic hypotension Status: Acute (5) Paroxysmal atrial fibrillation Status: Acute Assessment We are seeing the patient for afib and hypertension Assessment / Plan 1. Paroxysmal atrial fibrillation - She seems to be remaining in sinus rhythm. Due to fall risk we stopped her Eliquis and changed her to aspirin for stroke prevention. Continue to work with PT and OT to regain her balance and strength. Continue on propafenone for rhythm management - nonsignificant bradycardia. No AV marina blockers due to orthostatic hypotension. She had a normal stress test in April 2016 and is not known to have coronary artery disease. However, as she continues to get older, we may want to consider an alternative antiarrhythmic drug. 2. Orthostatic Hypertension - likely autonomic dysfunction- Plan for Midodrine BID and if continues to elevate sitting BP may consider change to pyridostigmine. Continue Valsartan 160 at discharge. Equivalent to Losartan 50 3. Thoracic aortic aneurysm without rupture - Her ascending aorta has enlarged slightly over the past year. This is still not in a range that would require surgery. We will continue to follow this with yearly echocardiograms. 4. Aortic valve regurgitation - She just had an echocardiogram when she was in the hospital in this again confirmed [id number] aortic regurgitation. This will need to be followed with yearly echocardiograms. Current Medications Problems: Subjective dizziness has improved with patch but she is unsteady with any activity. She denies any chest pain, palpitations, or dyspnea. She was confused over night. Objective Vital Signs Date Time Temp Pulse Resp B/P (MAP) Pulse Ox O2 Delivery O2 Flow Rate FiO2 09/24/17 07:53 80 09/24/17 06:27 180/89 09/24/17 06:25 16 95 Room Air 09/23/17 23:02 09/23/17 17:00 98.4 Intake and Output 09/24/17 06:59 Intake Total 800 ml Output Total 400 ml Balance 400 ml Intake Oral 750 ml IV Total 50 ml Output Urine Total 400 ml Abdomen: Normal bowel sounds, Soft Heart: Regular rate, Normal S1, Normal S2, Other (+ murmur) Extremities: No edema, Normal pulses General: Alert, Oriented X3, Cooperative Lungs: Clear to auscultation, Normal air movement Psych/Mental Status: Mental status NL, Mood NL Review of Relevant I have reviewed the following items melisa (where applicable) has been applied. Labs Laboratory Tests Test 09/22/17 17:25 09/23/17 06:10 09/24/17 06:15 Erythrocyte Sedimentation Rate 36 (0-25) D-Dimer (Gwendolyn) 3.41 mg/L (0.00-0.50) White Blood Count 6.2 x10^3/uL (4.0-11.0) 8.1 x10^3/uL (4.0-11.0) Red Blood Count 3.42 x10^6/uL (3.50-5.40) 3.58 x10^6/uL (3.50-5.40) Hemoglobin 10.4 g/dL (12.0-15.5) 10.7 g/dL (12.0-15.5) Hematocrit 31.4 % (36.0-47.0) 32.8 % (36.0-47.0) Mean Corpuscular Volume 92 fL (79-100) 91 fL (79-100) Mean Corpuscular Hemoglobin 30 pg (25-35) 30 pg (25-35) Mean Corpuscular Hemoglobin Concent 33 g/dL (31-37) 33 g/dL (31-37) Red Cell Distribution Width 14.7 % (11.5-14.5) 14.4 % (11.5-14.5) Platelet Count 259 x10^3/uL (140-400) 250 x10^3/uL (140-400) Neutrophils (%) (Auto) 49 % (31-73) 56 % (31-73) Lymphocytes (%) (Auto) 37 % (24-48) 29 % (24-48) Monocytes (%) (Auto) 9 % (0-9) 9 % (0-9) Eosinophils (%) (Auto) 3 % (0-3) 5 % (0-3) Basophils (%) (Auto) 1 % (0-3) 2 % (0-3) Neutrophils # (Auto) 3.0 x10^3uL (1.8-7.7) 4.6 x10^3uL (1.8-7.7) Lymphocytes # (Auto) 2.3 x10^3/uL (1.0-4.8) 2.3 x10^3/uL (1.0-4.8) Monocytes # (Auto) 0.6 x10^3/uL (0.0-1.1) 0.7 x10^3/uL (0.0-1.1) Eosinophils # (Auto) 0.2 x10^3/uL (0.0-0.7) 0.4 x10^3/uL (0.0-0.7) Basophils # (Auto) 0.1 x10^3/uL (0.0-0.2) 0.1 x10^3/uL (0.0-0.2) Sodium Level 140 mmol/L (136-145) 142 mmol/L (136-145) Potassium Level 4.2 mmol/L (3.5-5.1) 4.0 mmol/L (3.5-5.1) Chloride Level 105 mmol/L (98-107) 106 mmol/L (98-107) Carbon Dioxide Level 30 mmol/L (21-32) 33 mmol/L (21-32) Anion Gap 5 (6-14) 3 (6-14) Blood Urea Nitrogen 11 mg/dL (7-20) 12 mg/dL (7-20) Creatinine 1.2 mg/dL (0.6-1.0) 1.2 mg/dL (0.6-1.0) Estimated GFR (Cockcroft-Gault) 44.4 44.4 Glucose Level 90 mg/dL (70-99) 93 mg/dL (70-99) Calcium Level 8.3 mg/dL (8.5-10.1) 8.2 mg/dL (8.5-10.1) Magnesium Level 2.1 mg/dL (1.8-2.4) 2.1 mg/dL (1.8-2.4) Medications Current Medications Ondansetron HCl (Zofran) 4 mg PRN Q4HRS PRN IV NAUSEA/VOMITING Last administered on 09/22/17t 10:37; Start 09/21/17 at 21:30; Stop 09/22/17 at 21 :29; Status DC Acetaminophen (Tylenol) 650 mg PRN Q4HRS PRN PO FEVER; Start 09/21/17 at 21:30 ; Stop 09/22/17 at 21:29; Status DC Apixaban (Eliquis) 5 mg BID PO ; Start 09/22/17 at 09:00; Stop 09/22/17 at 09: 00; Status DC Propafenone HCl (Rythmol) 225 mg Q8HRS PO ; Start 09/22/17 at 06:00; Stop at 06:00; Status DC Non-Formulary Medication 1 tab DAILY PO ; Start 09/22/17 at 09:00; Stop at 09:00; Status DC Apixaban (Eliquis) 5 mg BID PO Last administered on 09/23/17 07:29; Start at 23:30; Stop 09/23/17 at 10:36; Status DC Propafenone HCl (Rythmol) 225 mg Q8HRS PO Last administered on 09/24/17 06:27 ; Start 09/21/17 at 23:30 Losartan Potassium (Cozaar) 100 mg DAILY PO Last administered on 09/23/17 07: 29; Start 09/22/17 at 00:30; Stop 09/23/17 at 10:36; Status DC Promethazine HCl 12.5 mg/Sodium Chloride 50.5 ml @ 101 mls/hr PRN Q6HRS PRN IV NAUSEA Last administered on 09/23/17 09:49; Start 09/22/17 at 09:45 Acetaminophen (Tylenol) 1,000 mg PRN Q6HRS PRN PO PAIN / TEMP Last administered on 09/22/17 10:37; Start 09/22/17 at 10:15 Tramadol HCl (Ultram) 50 mg PRN Q6HRS PRN PO PAIN Last administered on 07:29; Start 09/22/17 at 10:15 Oxybutynin Chloride (Ditropan) 5 mg [id number] PO Last administered on 09/24/17 07:52; Start 09/22/17 at 15:00 Iohexol (Omnipaque 300 Mg/ml) 75 ml 1X ONCE IV Last administered on 19:58; Start 09/22/17 at 19:30; Stop 09/22/17 at 19:31; Status DC Losartan Potassium (Cozaar) 50 mg DAILY PO Last administered on 09/24/17 07: 53; Start 09/24/17 at 09:00 Midodrine (Proamatine) 2.5 mg [id number] PO Last administered on 09/24/17 06:27; Start 09/23/17 at 13:00 Scopolamine (Transderm-Scop) 1 patch Q3DAYS TD Last administered on 09/23/17 15:19; Start 09/23/17 at 13:15 Haloperidol Lactate (Haldol) 5 mg STK-MED ONCE .ROUTE ; Start 09/23/17 at 16:27 ; Stop 09/23/17 at 16:28; Status DC Haloperidol Lactate (Haldol) 1 mg 1X ONCE IVP Last administered on 09/23/17 17:50; Start 09/23/17 at 17:00; Stop 09/23/17 at 17:01; Status DC Haloperidol Lactate (Haldol) 1 mg PRN Q4HRS PRN IVP hallucinations; Start at 16:30 Magnesium Hydroxide (Milk Of Magnesia) 2,400 mg PRN DAILY PRN PO CONSTIPATION Last administered on 09/24/17 07:52; Start 09/24/17 at 07:00 Losartan Potassium (Cozaar) 50 mg STK-MED ONCE .ROUTE ; Start 09/24/17 at 07:17 ; Stop 09/24/17 at 07:18; Status DC Active Scripts Active Colace (Docusate Sodium) 100 Mg Capsule 1 Cap PO DAILY 60 Days Acetaminophen 500 Mg Tablet 2 Tab PO Q6HRS PRN Valsartan 160 Mg Tablet 160 Mg PO DAILY 60 Days Transderm-Scop (Scopolamine) 1 Each Patch.td72 1 Patch TD Q3DAYS 30 Days Midodrine Hcl 2.5 Mg Tablet 2.5 Mg PO [id number] 60 Days Propafenone Hcl 150 Mg Tablet 225 Mg PO Q8HRS Reported Vesicare (Solifenacin Succinate) 10 Mg Tablet 1 Tab PO BID Vitals/I & O Vital Sign - Last 24 Hours 09/23/17 09/23/17 09/23/17 09/23/17 11:00 12: 12: 15:00 Pulse 59 77 80 84 Resp 18 18 B/P (MAP) 183/73 (109) 219/86 (130) Pulse Ox 94 94 O2 Delivery Room Air Room Air 09/23/17 09/23/17 09/23/17 09/23/17 17:00 18:00 19:00 20:00 Temp 98.4 Pulse 62 62 Resp 20 18 B/P (MAP) 153/70 (97) 153/70 182/85 (117) Pulse Ox 96 95 O2 Delivery Room Air Room Air Room Air 09/23/17 09/23/17 09/24/17 09/24/17 21:46 23:02 03:19 06:25 Pulse 62 64 87 60 Resp 20 10 16 B/P (MAP) 182/85 161/62 (95) 95/58 (70) 180/89 (119) Pulse Ox 92 93 95 O2 Delivery Room Air Room Air Room Air O2 Flow Rate 09/24/17 09/24/17 09/24/17 09/24/17 06:27 06:27 07:17 07:53 Pulse 60 60 80 80 B/P (MAP) 180/89 180/89 Intake and Output 09/23/17 09/23/17 09/24/17 14:59 22:59 06:59 Intake Total 300 ml 500 ml 0 ml Output Total 400 ml Balance 300 ml 100 ml 0 ml NILTON AVENDAÑO Jr, MD 09/25/17 0554: PROGRESS NOTES Assessment The patient was seen by Ward Valenzuela APRN and I have reviewed her findings and plan and agree with above. Due to staffing constraints, we did not have an attending available on this day to see the patient. Problems: WARD VALENZUELA APRN Sep 24, 2017 09:49 NILTON AVENDAÑO Jr, MD Sep 25, 2017 05:54
--- NOTE | 2017-09-28 18:04 | PN ---
DATE: 09/24/2017 SUBJECTIVE: The patient stated her dizziness has somewhat improved on transdermal-scopolamine patches every 72 hours. However, she continued to be orthostatic hypotensive with ____ blood pressure to 95/58. The patient denies headaches, visual disturbances, nausea, vomiting, chest pain, shortness of breath or palpitations, dysarthria or dysphagia. She continues to have some weakness of the lower extremities. OBJECTIVE: GENERAL: Obese white female, not in acute distress. VITAL SIGNS: Blood pressure 180/89 in sitting positions, pulse is 80 and regular. Afebrile. Oxygen saturation 95% on room air. HEENT: Normocephalic, atraumatic, otherwise unremarkable. NECK: Supple. Negative for carotid bruit, lymphadenopathy, or thyromegaly. LUNGS: Clear to A and P. CARDIOVASCULAR: Regular rate and rhythm, normal S1, S2. ABDOMEN: Soft. Bowel sounds positive. EXTREMITIES: With mild pitting edema on the left side. NEUROLOGICAL EXAM: Mental Status: The patient is alert and oriented x 3. The speech is fluent. There is no language dysfunction. Memory, judgment and abstraction thinkings are fair. The patient denies hallucination or delusion. Cranial nerves are intact. Motor Examination: No focal muscle bulk was seen. The tone is normal. The strength is 4/5 in the lower extremities and 5/5 in the upper extremities. Sensory: Revealed normal pinprick, light touch over vibratory and position senses. Deep tendon reflexes were symmetric and hypoactive with absent Achilles responses. Gait not tested. LABORATORY DATA: CBC revealed white blood cells of 8100, hemoglobin 10.7, hematocrit 32.8, platelet count 250,000. Chemistry revealed sodium of 142, potassium 4, chloride 106, CO2 of 33, BUN 12, creatinine 1.2 and glucose is 93, calcium of 8.2. D-dimer is elevated at 3.41. IMPRESSION: 1. Severe dizziness - moderately improved. The patient has moderately improved, probably due to underlying orthostatic hypotension; however, she showed some improvement with scopolamine patches. 2. Long history of orthostatic hypotension. 3. Multiple medical problems include hypertension, obesity, paroxysmal atrial fibrillations with current normal sinus rhythm. 4. Thoracic aortic aneurysms. RECOMMENDATIONS: 1. Continue with Cardiology recommendations for treatment of orthostatic hypotension. 2. Physical therapy. 3. Weight loss. 4. Followup visit in Neurology Clinic after 1 week from discharge. M Tamika CORTEZ MD DR: AN/althea JOB#: [id number] / [id number]
--- NOTE | 2017-09-28 18:23 | CONS ---
DATE OF CONSULTATION: 09/23/2017 REFERRING PHYSICIAN: Dr. Rodríguez. REASON FOR CONSULTATION: Frequent falls and severe dizziness. HISTORY OF PRESENT ILLNESS: This is a 72-year-old female who was admitted through Emergency Room on 09/21/2017 after she sustained a fall at home. According to the patient, she was trying to stand up after going to bathroom and pulling her cloths up, she was able to talk to use her walker, but she fell forward. She denies head injuries, loss of consciousness, chest pain, shortness of breath or palpitations. EMS was activated because the patient was not able to stand up despite her 's assistance. On arrival to the Emergency Room, her systolic blood pressure was above 200 mmHg. The patient stated on the day of admission, the systolic blood pressure was 120 earlier. Currently, the patient described dizzy spell upon changing her body positions from lying to sitting, described as "waves." On the day of admission, the patient was found to have marked orthostatic hypotension; however, she has been taking propafenone. PAST MEDICAL HISTORY: Significant for paroxysmal atrial fibrillations, thoracic aortic aneurysms, hypertension, valvular heart disease, GERD, orthostatic hypotension. PAST SURGICAL HISTORY: Significant for hysterectomy, retinal detachment repair and cholecystectomy. SOCIAL HISTORY: The patient is . She denies smoking, alcohol drinking, or illicit drug use. She has two children. FAMILY HISTORY: Her father at the age of 56 from peritonitis and her mother at the age of 77 from cardiac disease. REVIEW OF SYSTEMS: A 10-point review of system was performed and consistent with severe dizziness probably due to orthostatic hypotension. Otherwise, as mentioned above in history of present illness. CURRENT HOME MEDICATIONS: Eliquis 5 mg one tablet twice daily, fludrocortisone 0.1 mg one tablet daily, Premarin 0.625 mg vaginal cream twice weekly, propafenone 225 mg one tablet 3 times daily, tramadol 50 mg p.r.n. for pain. PHYSICAL EXAMINATION: GENERAL: Obese white female, not in acute distress. She weighs 249 pounds. VITAL SIGNS: Blood pressure 153/70, respiratory rate 20, pulse is 62, oxygen saturation 96%, temperature 98.4. The patient had orthostatic hypotension. HEENT: Normocephalic, atraumatic, otherwise unremarkable. NECK: Supple. Negative for carotid bruit, lymphadenopathy or thyromegaly. LUNGS: Clear to A and P. CARDIOVASCULAR: Regular rate and rhythm, normal S1, S2. There is no S3, S4 or murmur. ABDOMEN: Soft. Bowel sounds positive. EXTREMITIES: The patient has no cyanosis or clubbing, but has 2+ edema, more prominent on the left side. NEUROLOGIC: Mental status: The patient is alert and oriented x 3. Speech is fluent. There is no language dysfunction. Memory, judgment, and abstract thinking are fair. The patient denies hallucination or delusion. Cranial nerves: Visual hwang are full. The pupils are reactive to light and accommodation. The extraocular movements are intact. There is no nystagmus. There is no facial motor or sensory deficit. Hearing is intact bilaterally. The palate is elevated symmetrically. Sternocleidomastoid muscles are powerful bilaterally. The patient shrugs her shoulders symmetrically and protrudes her tongue in the midline without fasciculation or atrophy. Motor examination: No focal muscle bulk was seen. The tone is normal. The strength is 4/5 throughout. Sensory examination: Normal pinprick, light touch, vibratory and position senses. Deep tendon reflexes are symmetric and hypoactive with absent Achilles responses. Gait not tested at this time because of severe dizziness and orthostatic hypotension. DIAGNOSTIC DATA: Initial nonenhanced head CT scan revealed no evidence of acute intracranial process, but small vessel ischemic changes were noted. CT angio on 09/22/2017 revealed no evidence of pulmonary embolism. Lumbar spine x-ray revealed no acute abnormalities. LABORATORY DATA: CBC revealed white blood cells of 6.2 thousand, hemoglobin 10.4, hematocrit 31.4, platelet count 259,000. Chemistry revealed sodium of 140, potassium 4.2, chloride 105, CO2 of 30, BUN 11, creatinine 1.2, glucose 90. Calcium is 8.3, magnesium normal at 2.1. Troponin level is less than 0.017. Urinalysis is negative for urinary tract infections. IMPRESSION: 1. Longstanding history of hypertension resulted in positional dizziness and frequent falls. 2. Paroxysmal atrial fibrillation. 3. Obesity. 4. Multiple medical problems include hypertension and thoracic aortic aneurysm. RECOMMENDATIONS: 1. Cardiology consultation to treat the underlying orthostatic hypotension. 2. Physical therapy as tolerated. 3. Aggressive weight loss. 4. The patient has been on Eliquis for paroxysmal atrial fibrillation. I am concerned about risk of fall and possible head injuries and intracranial hemorrhage secondary to Eliquis. We will discuss this matter with supervisory it specialist about Eliquis and its risk and the situation. M Tamika CORTEZ MD DR: AN/althea JOB#: [id number] / [id number]
== END 2017-09-24 10:00 | DRG 312 ==
LOC: ER 18:17 → ICU 21:19
PROVIDERS: ADMIT Family Medicine; ATTEND Family Medicine
DX: I95.1 Orthostatic hypotension (principal); E44.0 Moderate protein-calorie malnutrition; I71.2 Thoracic aortic aneurysm, without rupture; E11.22 Type 2 diabetes mellitus with diabetic chronic kidney disease; E66.01 Morbid (severe) obesity due to excess calories; I48.0 Paroxysmal atrial fibrillation; I50.9 Heart failure, unspecified; I13.0 Hypertensive heart and chronic kidney disease with heart failure and stage 1 through stage 4 chronic kidney disease, or unspecified chronic kidney disease; S80.02XA Contusion of left knee, initial encounter; I25.10 Atherosclerotic heart disease of native coronary artery without angina pectoris; W18.39XA Other fall on same level, initial encounter; I35.1 Nonrheumatic aortic (valve) insufficiency; M54.10 Radiculopathy, site unspecified; N18.9 Chronic kidney disease, unspecified; K21.9 Gastro-esophageal reflux disease without esophagitis; R27.0 Ataxia, unspecified; R29.6 Repeated falls; Z83.3 Family history of diabetes mellitus; Z90.710 Acquired absence of both cervix and uterus; Z90.49 Acquired absence of other specified parts of digestive tract; Z68.39 Body mass index [BMI] 39.0-39.9, adult; Z88.8 Allergy status to other drugs, medicaments and biological substances; Y93.89 Activity, other specified; Y92.098 Other place in other non-institutional residence as the place of occurrence of the external cause; Y99.8 Other external cause status; Z79.4 Long term (current) use of insulin
CPT/HCPCS: 36415; 70450; 71275; 72100; 80048; 80053; 81001; 83735; 84484; 85025; 85379; 85610; 85651; 87641; 93005; J1630; J2405; J2550; Q9967; 97116; 97530; 97535; 99285-25

== ENCOUNTER → 2017-12-15 | Outpatient (CLI) | payer MEDICARE ==
[~2017-12-15] MED LIST changes: +ACET500T68 PO; +IOHEXOL 240 MG/ML 50ML VIAL. ONE; +LOSA50TA2 PO; +MIDO2.5T PO; +NAPR-514 PO; -NAPR500T4 PO; +OMEP20TA63 PO; +SCOP1PAT11 TD; +SOLI10TA2 PO; +VALS160T26 PO; +VALS160T3 PO
--- NOTE | 2017-12-15 12:08 | RAD ---
Renal ultrasound 12/15/2017 Indication: Abnormal renal function Comparison study: None Discussion: Ultrasound evaluation of the kidneys performed. Static images were submitted PACS. The bilateral kidneys are normal in length. The right kidney measures 11.6 cm in length. Left kidney measures 12.6 cm in length. Mild renal cortical thinning is present bilaterally. Partially visualized portions of the aorta and IVC are grossly unremarkable. No hydronephrosis, nephrolithiasis, or focal renal lesion is seen involving either kidney. Bladder is unremarkable in appearance. No significant post void residual is seen. Impression: Mild renal cortical thinning bilaterally. Otherwise unremarkable sonographic appearance of the kidneys
== END | disposition home or self-care (01) ==
LOC: US 10:47
PROVIDERS: ATTEND Nurse Practitioner Family
DX: R94.4 Abnormal results of kidney function studies (principal); I13.0 Hypertensive heart and chronic kidney disease with heart failure and stage 1 through stage 4 chronic kidney disease, or unspecified chronic kidney disease; N18.9 Chronic kidney disease, unspecified; E11.22 Type 2 diabetes mellitus with diabetic chronic kidney disease; I50.33 Acute on chronic diastolic (congestive) heart failure; Z79.4 Long term (current) use of insulin
CPT/HCPCS: 76770; Q9966

== ENCOUNTER → 2018-01-11 | Outpatient (CLI) | payer MEDICARE ==
[~2018-01-11] MED LIST changes: -IOHEXOL 240 MG/ML 50ML VIAL. ONE
--- NOTE | 2018-01-11 14:48 | RAD ---
Carotid ultrasound, 01/11/2018: History: Increasing weakness, falls Duplex evaluation of the carotid arteries in neck was performed including grayscale, color-flow and spectral Doppler analysis. There is mild atherosclerotic plaquing at the carotid bifurcations. The peak systolic velocity in the right internal carotid artery is 122 cm/s with an end-diastolic velocity of 35 cm/s. The internal carotid to common carotid artery ratio is 2.0. The Doppler findings suggest narrowing in the 0-50% diameter range. On the left, the peak systolic velocity in the internal carotid artery is 94 cm per sec with an end-diastolic velocity of 19 cm/s. The internal carotid to common carotid artery is 1.4. These Doppler findings also suggest narrowing in the 0-50% diameter range. Antegrade flow is present in both vertebral arteries in the neck. IMPRESSION: Mild atherosclerotic plaquing at both carotid bifurcations with underlying luminal narrowing in the 0-50% diameter range bilaterally. Note: Stenosis calculations for CTA, MRA and conventional angiography are based upon determination of the distal ICA diameter in accordance with the NASCET methodology. Stenosis calculations for Doppler studies are derived from validated velocity criteria which are known to correlate with NASCET methodology of determining stenosis.
== END | disposition home or self-care (01) ==
LOC: US 12:45
PROVIDERS: ATTEND Nurse Practitioner Family
DX: I65.23 Occlusion and stenosis of bilateral carotid arteries (principal)
CPT/HCPCS: 93880

== ENCOUNTER → 2019-03-03 | Outpatient (CLI) | payer MEDICARE ==
[~2019-03-03] MED LIST changes: +LOSA25TA11 PO; -LOSA25TA4 PO; -LOSA50TA2 PO; +LOSA50TA86 PO; -VALS160T26 PO; +VALS160T27 PO
[2019-03-03 16:32] LABS: ALBUMIN 3.3 g/dL (3.4-5.0); CALCIUM 8.4 mg/dL (8.5-10.1); CREATININE 1.2 mg/dL (0.6-1.0); GFR 44.3; MAGNESIUM 1.9 mg/dL (1.8-2.4); PHOSPHORUS 3.1 mg/dL (2.6-4.7); POTASSIUM 4.2 mmol/L (3.5-5.1)
[2019-03-04 03:08] LABS: CREATININE PTH 0.99 mg/dL (0.57-1.00); PTH INTACT 115 pg/mL (15-65)
[2019-03-04 05:07] LABS: MICRO CREAT RATIO <6.5 mg/g creat (0.0-30.0); MICROALB RD UR <3.0 ug/mL (Not Estab.)
== END | disposition home or self-care (01) ==
LOC: LAB 15:42
PROVIDERS: ATTEND Nurse Practitioner Family
DX: E11.22 Type 2 diabetes mellitus with diabetic chronic kidney disease (principal); I13.0 Hypertensive heart and chronic kidney disease with heart failure and stage 1 through stage 4 chronic kidney disease, or unspecified chronic kidney disease; N18.3 Chronic kidney disease, stage 3 (moderate); I50.32 Chronic diastolic (congestive) heart failure; Z68.38 Body mass index [BMI] 38.0-38.9, adult
CPT/HCPCS: 36415; 80069; 82043; 82570; 83735; 83970

== ENCOUNTER → 2019-04-26 | Outpatient (CLI) | payer MEDICARE ==
[2019-04-26 11:43] LABS: CALCIUM 8.4 mg/dL (8.5-10.1); CREATININE 1.2 mg/dL (0.6-1.0); GFR 44.3
== END | disposition home or self-care (01) ==
LOC: LAB 10:56
PROVIDERS: ATTEND Internal Medicine Cardiovascular Disease
DX: I13.0 Hypertensive heart and chronic kidney disease with heart failure and stage 1 through stage 4 chronic kidney disease, or unspecified chronic kidney disease (principal); E11.22 Type 2 diabetes mellitus with diabetic chronic kidney disease; I50.9 Heart failure, unspecified; N18.3 Chronic kidney disease, stage 3 (moderate)
CPT/HCPCS: 36415; 80048

== ENCOUNTER 2019-12-08 13:09 | Inpatient (IN) | payer MEDICARE, BC ==
[~2019-12-08] VITALS: Ht 170.2 cm; Wt 115.3 kg
[2019-12-08 13:42] VITALS: BP 185/83
[2019-12-08] MEDS ORDERED: ONDANSETRON PF 4 MG/2 ML VIAL. IV PRN (13:45)
[2019-12-08] MEDS ORDERED: ZOLPIDEM 5 MG TABLET. PO PRN (13:45)
[2019-12-08 14:02] LABS: BASO # 0.1 x10^3/uL (0.0-0.2); BASO % 1 % (0-3); EOS # 0.2 x10^3/uL (0.0-0.7); EOS % 3 % (0-3); HEMATOCRIT 32.8 % (36.0-47.0); HEMOGLOBIN 10.6 g/dL (12.0-15.5); LYMPH # 1.7 x10^3/uL (1.0-4.8); LYMPH % 26 % (24-48); MEAN CORPUSCULAR HEMOGLOBIN 30 pg (25-35); MEAN CORPUSCULAR HGB CONC 32 g/dL (31-37); MEAN CORPUSCULAR VOLUME 94 fL (79-100); MONO # 0.5 x10^3/uL (0.0-1.1); MONO % 8 % (0-9); NEUT % 62 % (31-73); PLATELET COUNT 170 x10^3/uL (140-400); RED BLOOD COUNT 3.49 x10^6/uL (3.50-5.40); RED CELL DISTRIBUTION WIDTH 13.8 % (11.5-14.5); WHITE BLOOD COUNT 6.4 x10^3/uL (4.0-11.0)
[2019-12-08 14:28] LABS: ALBUMIN/GLOBULIN RATIO 0.9 (1.0-1.7); CALCIUM 8.2 mg/dL (8.5-10.1); CREATININE 1.1 mg/dL (0.6-1.0); GFR 48.8; TOTAL BILIRUBIN 0.6 mg/dL (0.2-1.0); TOTAL PROTEIN 6.3 g/dL (6.4-8.2)
[2019-12-08] MEDS ORDERED: IOHEXOL 350 MG/ML 100 ML VIAL. IV ONE (15:15)
--- NOTE | 2019-12-08 16:02 | RAD ---
CHEST AP ONLY Clinical History: Technique: AP view of the chest was obtained at 12/08/2019 1:37 PM. Comparison: August 31, 2016. Findings: The heart is moderately enlarged. The pulmonary vasculature is normal. A few linear opacities lung bases are likely discoid atelectasis. Impression: Moderate cardiomegaly. Stable appearance of the chest. Electronically signed by: Daniel Puentes III, MD (12/08/2019 4:00 PM) [id number]
[2019-12-08] MEDS ORDERED: LEVO50TA5 PO (16:11)
[2019-12-08] MEDS ORDERED: PROP225C3 PO (16:11)
[2019-12-08] MEDS ORDERED: CHOL40003 PO (16:11)
[2019-12-08] MEDS ORDERED: TUMERIC PO (16:11)
[2019-12-08] MEDS ORDERED: ATOR40TA59 PO (16:11)
[2019-12-08] MEDS ORDERED: CETI10TA30 PO (16:11)
[2019-12-08] MEDS ORDERED: APIX5TAB3 PO (16:11)
[2019-12-08] MEDS ORDERED: DONE5TAB7 PO (16:11)
[2019-12-08] MEDS ORDERED: PANT40TA5 PO (16:11)
[2019-12-08] MEDS ORDERED: DICL1KIT14 TP (16:11)
[2019-12-08] MEDS ORDERED: ESTR0.62 PO (16:11)
--- NOTE | 2019-12-08 16:11 | EKG ---
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
[2019-12-08] MEDS: IV NORMAL SALINE 1,000ML 1,000 ML IV SCH ×2 (17:44→20:17)
--- NOTE | 2019-12-08 17:47 | RAD ---
Thyroid sonography Clinical indications: Lump on neck. FINDINGS: The longitudinal and AP and transverse dimensions of the right lobe are 3.6 cm and 1.4 cm and 1.2 cm respectively. There is a small solid nodule within the mid aspect of the right lobe with a peripheral hypoechoic rim and central echogenic focus. It measures 9 mm in greatest dimension. The isthmus measures 5 mm in thickness without a nodule. The longitudinal and AP and transverse dimensions of the left lobe are 3.9 cm and 1.1 cm and 1.0 cm respectively. There is a small cyst within the lower pole measuring 6 mm in size. IMPRESSION: Small nodule of the right lobe. Small cyst of the left lobe. With regard to any palpable abnormality, follow-up should be clinical. If palpable abnormality continues to be of clinical concern, then a CT study of the soft tissues of the neck may be helpful for further evaluation. Electronically signed by: Nitin Church MD (12/08/2019 5:44 PM) [facility] [place]
--- NOTE | 2019-12-08 17:51 | RAD ---
CT HEAD WO CONTRAST Clinical indications: Dizziness. COMPARISON: September 23, 2017. Technique: Noncontrast axial cross sectional scanning of the head was performed. PQRS compliance Statement One or more of the following individualized dose reduction techniques were utilized for this study: 1. Automated exposure control 2. Adjustment of the mA and/or kV according to patient size 3. Use of iterative reconstruction technique Findings: No acute intracranial hemorrhage or midline shift or mass-effect or hydrocephalus or extra-axial fluid collection is seen. No new focal hypodense area or sulci effacement is seen to indicate an acute infarct or edema radiographically. No skull fracture or pneumocephalus is seen. No opacification of the mastoid sinuses or the middle ear cavities or the paranasal sinuses is seen. The maxillary sinuses are not completely seen in this study. Impression: No acute intracranial abnormality is seen. Electronically signed by: Nitin Church MD (12/08/2019 5:47 PM) [facility] [place]
[2019-12-08] MEDS ORDERED: PROPAFENONE HCL 225 MG PO SCH (18:15)
[2019-12-08 18:24] LABS: INFLUENZA A PATIENT NEGATIVE (NEGATIVE); INFLUENZA B PATIENT NEGATIVE (NEGATIVE)
[2019-12-08 20:18] VITALS: BP 139/78
[2019-12-08] MEDS: PROPAFENONE 150 MG TABLET. PO SCH (20:24)
[2019-12-08] MEDS: APIXABAN 5 MG TABLET. PO SCH (20:24)
[2019-12-08] MEDS: ATORVASTATIN CALCIUM 20 MG TABLET PO SCH (20:24)
[2019-12-08] MEDS: DONEPEZIL HCL 5 MG TABLET. PO SCH (20:25)
[2019-12-08] MEDS: DICLOFENAC SODIUM 1% TOPICAL GEL 100GM TUBE. TP SCH (21:00)
[2019-12-08] MEDS ORDERED: DICLOFENAC SODIUM TP SCH (21:00)
[2019-12-08 22:47] VITALS: BP 158/79
[2019-12-09] MEDS: IV NORMAL SALINE 1,000ML 1,000 ML IV SCH ×3 (02:57→16:42)
[2019-12-09] MEDS ORDERED: LEVO50TA5 PO (04:06)
[2019-12-09] MEDS: LEVOTHYROXINE 50 MCG TABLET PO SCH (05:21)
[2019-12-09] MEDS: PROPAFENONE 150 MG TABLET. PO SCH ×3 (05:21→20:03)
[2019-12-09 05:43] VITALS: BP 169/81
[2019-12-09 06:11] LABS: BASO # 0.1 x10^3/uL (0.0-0.2); BASO % 1 % (0-3); EOS # 0.2 x10^3/uL (0.0-0.7); EOS % 3 % (0-3); HEMATOCRIT 30.9 % (36.0-47.0); HEMOGLOBIN 9.9 g/dL (12.0-15.5); LYMPH # 1.5 x10^3/uL (1.0-4.8); LYMPH % 22 % (24-48); MEAN CORPUSCULAR HEMOGLOBIN 30 pg (25-35); MEAN CORPUSCULAR HGB CONC 32 g/dL (31-37); MEAN CORPUSCULAR VOLUME 95 fL (79-100); MONO # 0.6 x10^3/uL (0.0-1.1); MONO % 8 % (0-9); NEUT # 4.7 x10^3uL (1.8-7.7); NEUT % 67 % (31-73); PLATELET COUNT 159 x10^3/uL (140-400); RED BLOOD COUNT 3.26 x10^6/uL (3.50-5.40); RED CELL DISTRIBUTION WIDTH 13.9 % (11.5-14.5)
[2019-12-09 06:14] LABS: BILIRUBIN,URINE NEG (NEG); CLARITY,URINE HAZY; COLOR,URINE YELLOW; GLUCOSE,URINE NEG (NEG)
[2019-12-09 06:15] LABS: NITRITE,URINE NEG (NEG); UROBILINOGEN,URINE 0.2 mg/dL (0.2 mg/dL)
[2019-12-09 06:16] LABS: BACTERIA,URINE FEW /HPF (0-FEW); RBC,URINE OCC /HPF (0-2); SQUAMOUS EPITHELIAL CELL,UR MANY /LPF
[2019-12-09 06:23] LABS: ALBUMIN 2.7 g/dL (3.4-5.0); ALBUMIN/GLOBULIN RATIO 0.9 (1.0-1.7); CALCIUM 7.9 mg/dL (8.5-10.1); CREATININE 1.1 mg/dL (0.6-1.0); GFR 48.8; POTASSIUM 3.7 mmol/L (3.5-5.1); TOTAL BILIRUBIN 0.6 mg/dL (0.2-1.0); TOTAL PROTEIN 5.6 g/dL (6.4-8.2)
[2019-12-09] MEDS: PANTOPRAZOLE 40 MG TABLET. PO SCH (08:16)
[2019-12-09] MEDS: CETIRIZINE HCL 10 MG TABLET PO SCH (08:16)
[2019-12-09] MEDS: CHOLECALCIFEROL (VITAMIN D3) 1,000 UNIT TABLET PO SCH (08:17)
[2019-12-09] MEDS: APIXABAN 5 MG TABLET. PO SCH ×2 (08:17→20:01)
[2019-12-09] MEDS: DICLOFENAC SODIUM 1% TOPICAL GEL 100GM TUBE. TP SCH ×4 (08:17→20:06)
[2019-12-09] MEDS ORDERED: CHOLECALCIFEROL PO SCH (09:00)
[2019-12-09] MEDS ORDERED: DONEPEZIL HCL 5 MG TABLET. PO SCH (09:00)
[2019-12-09] MEDS ORDERED: CETIRIZINE HCL 10 MG PO SCH (09:00)
[2019-12-09] MEDS ORDERED: LEVOTHYROXINE 50 MCG TABLET PO SCH (09:00)
[2019-12-09] MEDS ORDERED: NON FORMULARY ITEM (Atorvastatin Calcium 1 TAB) PO SCH (09:00)
[2019-12-09 10:13] VITALS: BP 159/79
--- NOTE | 2019-12-09 13:32 | EKG ---
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
--- NOTE | 2019-12-09 15:05 | PDOC2 ---
CONSULT Date of Admission DATE: 12/09/19 TIME: 14:57 Reason for Consult: Chest pain Referring Physician: Dr. Rodríguez Chief Complaint Generalized weakness Source: Chart review, Patient History of Present Illness 74-year-old female with history of paroxysmal atrial fibrillation presented to PCPs office with generalized weakness and admitted for further management. She c omplained of chest pain prompting cardiology consultation. She described the chest pain as mild pressure-like sensation, 2/10 severity not related to exertion or food intake. She denied any orthopnea/PND, palpitations or syncope. Past Medical History Paroxysmal atrial fibrillation Orthostatic hypotension Ascending aortic aneurysm Hypertension Hyperlipidemia Hypothyroidism Past Surgical History Hysterectomy Cholecystectomy Retinal detachment repair Family History Not contributory Social History Patient is a nonsmoker and nondrinker Current Medications Current Medications Sodium Chloride 1,000 ml @ 150 mls/hr Q6H40M IV Last administered on 12/09/19at 11:03; Start 12/08/19 at 13:37 Acetaminophen (Tylenol) 650 mg PRN Q6HRS PRN PO Headaches, Temp > 101.5F; Start 12/08/19 at 13:45 Zolpidem Tartrate (Ambien) 5 mg PRN QHS PRN PO INSOMNIA, MAY REPEAT IN 1HR; Start 12/08/19 at 13:45 Ondansetron HCl (Zofran) 4 mg PRN Q8HRS PRN IV NAUSEA/VOMITING; Start 12/08/19 at 13:45 Iohexol (Omnipaque 350 Mg/ml) 100 ml 1X ONCE IV ; Start 12/08/19 at 15:15; Stop 12/08/19 at 15:17; Status DC Apixaban (Eliquis) 5 mg BID PO Last administered on 12/09/19at 08:17; Start 12/08/19 at 21:00 Donepezil HCl (Aricept) 5 mg DAILY PO ; Start 12/09/19 at 09:00; Stop 12/08/19 at 19:21; Status DC Estrogens Conjugated (Premarin) 0.625 mg QMWF PO ; Start 12/09/19 at 16:00 Levothyroxine Sodium (Synthroid) 50 mcg DAILY PO ; Start 12/09/19 at 09:00; Stop 12/09/19 at 04:13; Status DC Pantoprazole Sodium (Protonix) 40 mg DAILY PO Last administered on 12/09/19at 08:16; Start 12/09/19 at 09:00 Non-Formulary Medication (Atorvastatin Calcium ) 1 tab DAILY PO ; Start 12/09/19 at 09:00; Status UNV Non-Formulary Medication (Cetirizine Hcl ) 10 mg DAILY PO ; Start 12/09/19 at 09:00; Stop 12/08/19 at 18:11; Status DC Non-Formulary Medication (Cholecalciferol (Vitamin D3) (Vitamin D3)) 1 cap DAILY PO ; Start 12/09/19 at 09:00; Stop 12/08/19 at 18:11; Status DC Non-Formulary Medication (Diclofenac Sodium (Diclo Gel)) 1 each QID TP ; Start 12/08/19 at 21:00; Stop 12/08/19 at 18:14; Status DC Non-Formulary Medication (Propafenone Hcl ) 225 mg 8AM, 2PM,8PM PO ; Start 12/08/19 at 18:15; Stop 12/08/19 at 18:13; Status DC Cetirizine HCl (ZyrTEC) 10 mg DAILY PO Last administered on 12/09/19at 08:16; Start 12/09/19 at 09:00 Vitamin D (Vitamin D3) 1,000 unit DAILY PO Last administered on 12/09/19at 08:17; Start 12/09/19 at 09:00 Propafenone HCl (Rythmol) 150 mg Q8HRS PO Last administered on 12/09/19at 14:25; Start 12/08/19 at 22:00 Atorvastatin Calcium (Lipitor) 40 mg QHS PO Last administered on 12/08/19at 20:24; Start 12/08/19 at 21:00 Diclofenac Sodium (Voltaren) 1 bryan QID TP Last administered on 12/09/19at 13:46; Start 12/08/19 at 21:00 Donepezil HCl (Aricept) 5 mg QHS PO Last administered on 12/08/19at 20:25; Start 12/08/19 at 21:00 Levothyroxine Sodium (Synthroid) 50 mcg DAILY06 PO Last administered on 12/09/19at 05:21; Start 12/09/19 at 06:00 Non-Formulary Medication 1 ea DAILY PO ; Start 12/10/19 at 09:00 Active Scripts Active Reported Levothyroxine Sodium 50 Mcg Tablet 1 Tab PO DAILY06 Diclo Gel (Diclofenac Sodium) 1 Each Kit 1 Each TP QID Premarin (Estrogens, Conjugated) 0.625 Mg Tablet 1 Tab PO MWF Donepezil Hcl 5 Mg Tablet 5 Mg PO DAILY Atorvastatin Calcium 40 Mg Tablet 1 Tab PO DAILY Cetirizine Hcl 10 Mg Tab.chew 10 Mg PO DAILY Eliquis (Apixaban) 5 Mg Tablet 5 Mg PO BID Pantoprazole Sodium 40 Mg Tablet.dr 40 Mg PO DAILY Propafenone Hcl 225 Mg Cap.er.12h 225 Mg PO 8AM, 2PM,8PM [Tumeric] 1,000 Mg PO BID PRN Vitamin D3 (Cholecalciferol (Vitamin D3)) 4,000 Unit Capsule 1 Cap PO DAILY 30 Days Allergies: Coded Allergies: Sulfa (Sulfonamide Antibiotics) (Verified Allergy, Intermediate, Swelling, 09/22/17) dronedarone (Verified Allergy, Intermediate, Swelling, 09/22/17) Swelling/weakness/numbness General: YES: Fatigue, Other (gen weakness) PSYCHOLOGICAL ROS: No: Hallucinations Eyes: No: Loss of vision HEENT: No: Epistaxis Respiratory: No: Hemoptysis, Shortness of breath Cardiovascular: yes: Chest Pain Gastrointestinal: No: Vomiting, Diarrhea Genitourinary: No: Henaturia Neurological: No: Seizures Skin: No: Rash General: Alert, No acute distress HEENT: Atraumatic, PERRLA Lungs: Clear to auscultation Heart: Regular rate Abdomen: Soft Extremities: Other (trace) Psych/Mental Status: Mood NL VITALS Vital Signs Date Time Temp Pulse Resp B/P (MAP) Pulse Ox O2 Delivery O2 Flow Rate FiO2 12/09/19 14:25 58 159/79 12/09/19 08:00 Room Air 12/09/19 05:43 97.8 20 98 Labs Laboratory Tests Test 12/08/19 13:52 12/08/19 17:50 12/09/19 05:36 12/09/19 05:52 White Blood Count 6.4 x10^3/uL (4.0-11.0) 7.0 x10^3/uL (4.0-11.0) Red Blood Count 3.49 x10^6/uL (3.50-5.40) 3.26 x10^6/uL (3.50-5.40) Hemoglobin 10.6 g/dL (12.0-15.5) 9.9 g/dL (12.0-15.5) Hematocrit 32.8 % (36.0-47.0) 30.9 % (36.0-47.0) Mean Corpuscular Volume 94 fL (79-100) 95 fL (79-100) Mean Corpuscular Hemoglobin 30 pg (25-35) 30 pg (25-35) Mean Corpuscular Hemoglobin Concent 32 g/dL (31-37) 32 g/dL (31-37) Red Cell Distribution Width 13.8 % (11.5-14.5) 13.9 % (11.5-14.5) Platelet Count 170 x10^3/uL (140-400) 159 x10^3/uL (140-400) Neutrophils (%) (Auto) 62 % (31-73) 67 % (31-73) Lymphocytes (%) (Auto) 26 % (24-48) 22 % (24-48) Monocytes (%) (Auto) 8 % (0-9) 8 % (0-9) Eosinophils (%) (Auto) 3 % (0-3) 3 % (0-3) Basophils (%) (Auto) 1 % (0-3) 1 % (0-3) Neutrophils # (Auto) 4.0 x10^3uL (1.8-7.7) 4.7 x10^3uL (1.8-7.7) Lymphocytes # (Auto) 1.7 x10^3/uL (1.0-4.8) 1.5 x10^3/uL (1.0-4.8) Monocytes # (Auto) 0.5 x10^3/uL (0.0-1.1) 0.6 x10^3/uL (0.0-1.1) Eosinophils # (Auto) 0.2 x10^3/uL (0.0-0.7) 0.2 x10^3/uL (0.0-0.7) Basophils # (Auto) 0.1 x10^3/uL (0.0-0.2) 0.1 x10^3/uL (0.0-0.2) D-Dimer (Gwendolyn) 0.47 mg/L (0.00-0.50) Sodium Level 140 mmol/L (136-145) 143 mmol/L (136-145) Potassium Level 4.0 mmol/L (3.5-5.1) 3.7 mmol/L (3.5-5.1) Chloride Level 105 mmol/L (98-107) 108 mmol/L (98-107) Carbon Dioxide Level 28 mmol/L (21-32) 30 mmol/L (21-32) Anion Gap 7 (6-14) 5 (6-14) Blood Urea Nitrogen 14 mg/dL (7-20) 11 mg/dL (7-20) Creatinine 1.1 mg/dL (0.6-1.0) 1.1 mg/dL (0.6-1.0) Estimated GFR (Cockcroft-Gault) 48.8 48.8 BUN/Creatinine Ratio 13 (6-20) 10 (6-20) Glucose Level 95 mg/dL (70-99) 82 mg/dL (70-99) Calcium Level 8.2 mg/dL (8.5-10.1) 7.9 mg/dL (8.5-10.1) Total Bilirubin 0.6 mg/dL (0.2-1.0) 0.6 mg/dL (0.2-1.0) Aspartate Amino Transf (AST/SGOT) 12 U/L (15-37) 12 U/L (15-37) Alanine Aminotransferase (ALT/SGPT) 14 U/L (14-59) 14 U/L (14-59) Alkaline Phosphatase 77 U/L (46-116) 68 U/L (46-116) Total Protein 6.3 g/dL (6.4-8.2) 5.6 g/dL (6.4-8.2) Albumin 3.0 g/dL (3.4-5.0) 2.7 g/dL (3.4-5.0) Albumin/Globulin Ratio 0.9 (1.0-1.7) 0.9 (1.0-1.7) Influenza Type A (Rapid) Negative (NEGATIVE) Influenza Type B (Rapid) Negative (NEGATIVE) Urine Collection Type Unknown Urine Color Yellow Urine Clarity Hazy Urine pH 5.5 Urine Specific [place] 1.025 Urine Protein Neg (NEG-TRACE) Urine Glucose (UA) Neg mg/dL (NEG) Urine Ketones (Stick) 15 mg/dL (NEG) Urine Blood Neg (NEG) Urine Nitrite Neg (NEG) Urine Bilirubin Neg (NEG) Urine Urobilinogen Dipstick 0.2 mg/dL (0.2 mg/dL) Urine Leukocyte Esterase Trace (NEG) Urine RBC Occ /HPF (0-2) Urine WBC 5-10 /HPF (0-4) Urine Squamous Epithelial Cells Many /LPF Urine Bacteria Few /HPF (0-FEW) Urine Mucus Slight /LPF Erythrocyte Sedimentation Rate 20 (0-25) Test 12/09/19 10:08 12/09/19 10:21 12/09/19 14:20 Creatine Kinase 56 U/L (26-192) Troponin I Quantitative 0.048 ng/mL (0-0.055) 0.045 ng/mL (0-0.055) D-Dimer (Gwendolyn) 0.54 mg/L (0.00-0.50) Assessment/Plan 1. Chest pain with atypical features: EKG without acute changes and cardiac enzymes negative. Check 2-D echo to assess LV function and rule out wall motion abnormalities. Ischemic workup could be considered as an outpatient. 2. Paroxysmal atrial fibrillation, usually followed by [facility] cardiology, presently in sinus rhythm. Continue propafenone for antiarrhythmic therapy and eliquis for stroke prophylaxis. 3. Generalized weakness: Telemetry did not show any significant bradycardia or pauses. Continue management per PCP. 4. Hypertension: Blood pressure slightly elevated. Resume home anti hypertensives and titrate for better control. 5. Hyperlipidemia: Continue statin therapy 6. Hypothyroidism: Continue levothyroxine Thank you for your consultation ROHAN COLMENARES MD Dec 09, 2019 15:05
--- NOTE | 2019-12-09 15:10 | CARD ---
MR#: [id number] Date of Study: 12/09/2019 Ordering Physician: MARIOLA MICHAUD, Referring Physician: MARIOLA MICHAUD, Tech: Beena Cadena APPROVED REPORT EXAM: Two-dimensional and M-mode echocardiogram with Doppler and color Doppler. Other Information Quality : Average Technically limited study due to body habitus. INDICATION Atrial Fibrillation Chest Pain Syncope Congestive Heart Failure 2D DIMENSIONS RVDd3.4 (2.9-3.5cm)Left Atrium(2D)4.5 (1.6-4.0cm) IVSd1.1 (0.7-1.1cm)Aortic Root(2D)3.5 (2.0-3.7cm) LVDd6.0 (3.9-5.9cm)LVOT Diameter2.0 (1.8-2.4cm) PWd1.2 (0.7-1.1cm)LVDs4.3 (2.5-4.0cm) FS (%) 27.1 %SV92.1 ml LVEF(%)52.0 (>50%) Aortic Valve AoV Peak Sj.118.7cm/sAoV VTI28.2cm AO Peak GR.5.6mmHgLVOT Peak Sj.98.0cm/s LVOT VTI 29.72cmAO Mean GR.3mmHg JAMES (VMAX)2.49lo7ZSB (VTI)3.42cm2 AI P 1/2 Ujnr351kg Mitral Valve MV E Zwthlqhv70.5cm/sMV E Peak Gr.123mmHg MV DECEL [id number] A Qajaccsn10.8cm/s E/A Ratio0.7 Pulmonary Valve PV Peak Xvekjmmi72.2cm/sPV Peak Grad.3mmHg Tricuspid Valve TR P. Xybizdlg258eb/sRAP LWKDFZLQ2kwNi TR Peak Gr.00zdYsHGUI53faJx Pulmonary Vein S1 Tkjolwbg29.0cm/sD2 Gutuxpba97.1cm/s LEFT VENTRICLE The Left Ventricle is mildly dilated. There is mild to moderate concentric left ventricular hypertrop hy. The left ventricular systolic function is low normal. EF 50-55% There is slight global hypokinesi s of the left ventricle. Transmitral Doppler flow pattern is Grade II-pseudonormal filling dynamics. RIGHT VENTRICLE The right ventricle is normal size. There is normal right ventricular wall thickness. The right ventr icular systolic function is normal. ATRIA The left atrium size is normal. The right atrium is borderline dilated. The interatrial septum is int act with no evidence for an atrial septal defect or patent foramen ovale as noted on 2-D or Doppler i maging. AORTIC VALVE The aortic valve is normal in structure and function. Doppler and Color Flow revealed mild aortic reg urgitation. There is no significant aortic valvular stenosis. MITRAL VALVE The mitral valve is normal in structure and function. There is no evidence of mitral valve prolapse. There is no mitral valve stenosis. Doppler and Color-flow revealed moderate mitral regurgitation. TRICUSPID VALVE The tricuspid valve is normal in structure and function. Doppler and Color Flow revealed trace to mil d tricuspid regurgitation with an estimated PAP of 51 mmHg. There is no tricuspid valve stenosis. PULMONIC VALVE The pulmonic valve is not well visualized. Doppler and Color Flow revealed no pulmonic valvular regur gitation. There is no pulmonic valvular stenosis. GREAT VESSELS The aortic root is normal in size. The IVC is normal in size and collapses >50% with inspiration. PERICARDIAL EFFUSION There is no evidence of significant pericardial effusion. Critical Notification Critical Value: No <Conclusion> The left ventricular systolic function is low normal. EF 50-55% There is slight global hypokinesis of the left ventricle. The Left Ventricle is mildly to moderately dilated. Doppler and Color-flow revealed moderate mitral regurgitation. Doppler and Color Flow revealed trace to mild tricuspid regurgitation with an estimated PAP of 51 mmH g. Signed by : José Manuel Godoy, Electronically Approved : 12/09/2019 15:09:50
[2019-12-09 15:48] VITALS: BP 190/81
[2019-12-09] MEDS ORDERED: ESTROGENS, CONJUGATED 0.625 MG TABLET PO SCH (16:00)
[2019-12-09] MEDS ORDERED: amLODIPine BESYLATE 5 MG TABLET PO ONE (16:30)
[2019-12-09] MEDS ORDERED: ENOXAPARIN 40 MG/0.4 ML SYRINGE. SQ SCH (19:00)
[2019-12-09 19:16] VITALS: BP 135/75
[2019-12-09] MEDS: ATORVASTATIN CALCIUM 20 MG TABLET PO SCH (20:01)
[2019-12-09] MEDS: DONEPEZIL HCL 5 MG TABLET. PO SCH (20:03)
--- NOTE | 2019-12-09 22:28 | PN ---
DATE: SUBJECTIVE: A 74-year-old female who has been having problems with blood pressure as well as chest discomfort. Blood pressure went as high as 190/80, respiratory rate 20, pulse 57. The patient's cardiac enzymes have been basically stable. Cardiology was consulted on her. She was given additional medications for the situation there. OBJECTIVE: VITAL SIGNS: The patient's blood pressure has come down. We discontinued some of her fluids. Blood pressure 190/81 and came down to 150/80, pulse 57, afebrile, respiratory rate 20. GENERAL: The patient is alert and oriented, but still feeling very weak and tired and run down. LUNGS: Otherwise, lungs are diminished throughout, poor movement of air. CARDIOVASCULAR: Regular sinus rhythm. ABDOMEN: Soft, nontender, no rebound or guarding. Positive bowel sounds, no hepatosplenomegaly was noted. EXTREMITIES: Without clubbing, cyanosis, or edema. LABORATORY DATA: Did show an increase in her D-dimer at the same token, albumin was down to 2.7. White count, hemoglobin dropped to 9.9 and 30. We will continue to monitor the patient accordingly, make further evaluation on these multiple issues. IMPRESSION: Chest pain, paroxysmal atrial fibrillation, generalized weakness, hypertension, urgency, hyperlipidemia, hypothyroidism, morbid obesity, type 2 diabetes. PLAN: Continue to monitor the patient accordingly and we will continue to assess. May consider giving her an anticoagulant for her elevated D-dimer and take her off her estrogens. MARIOLA MICHAUD MD DR: EMILY/althea JOB#: [id number] / [id number]
[2019-12-09 23:00] VITALS: BP 156/72
[2019-12-10 01:10] LABS: HEMOGLOBIN A1C 5.5 % (4.8-5.6)
[2019-12-10 05:05] VITALS: BP 147/76
[2019-12-10] MEDS: LEVOTHYROXINE 50 MCG TABLET PO SCH (05:15)
[2019-12-10] MEDS: PROPAFENONE 150 MG TABLET. PO SCH ×3 (05:16→20:36)
[2019-12-10] MEDS: PANTOPRAZOLE 40 MG TABLET. PO SCH (08:20)
[2019-12-10] MEDS: CETIRIZINE HCL 10 MG TABLET PO SCH (08:20)
[2019-12-10] MEDS: APIXABAN 5 MG TABLET. PO SCH ×2 (08:20→20:35)
[2019-12-10] MEDS: CHOLECALCIFEROL (VITAMIN D3) 1,000 UNIT TABLET PO SCH (08:20)
[2019-12-10] MEDS ORDERED: NON FORMULARY ITEM PO SCH (09:00)
[2019-12-10] MEDS: DICLOFENAC SODIUM 1% TOPICAL GEL 100GM TUBE. TP SCH ×4 (09:00→20:36)
[2019-12-10 10:35] LABS: BACTERIA,URINE MOD /HPF (0-FEW); BILIRUBIN,URINE NEG (NEG); CLARITY,URINE HAZY; COLOR,URINE YELLOW; GLUCOSE,URINE NEG (NEG); NITRITE,URINE NEG (NEG); SQUAMOUS EPITHELIAL CELL,UR MOD /LPF; UROBILINOGEN,URINE 0.2 mg/dL (0.2 mg/dL)
--- NOTE | 2019-12-10 13:16 | RAD ---
Exam performed: Nuclear medicine perfusion scan. Date of Service: 12/10/2019. A chest x-ray performed on 12/08/2019 was also reviewed. Clinical Indication: Shortness of breath, elevated d-dimer off-and-on. Discussion: Patient was also given 16 mCi of technetium 99 MAA and perfusion images of the chest are obtained in corresponding projections. There is symmetric distribution of radiotracer without any photopenic area. No matched or mismatched abnormalities detected. Impression: 1. The study is low probability for pulmonary embolism based on the perfusion scan. Electronically signed by: Alyx Hugo MD (12/10/2019 1:13 PM) [id number]
[2019-12-10 15:00] VITALS: BP 169/68
[2019-12-10 19:34] VITALS: BP 161/74
[2019-12-10] MEDS: NON FORMULARY ITEM PO SCH ×2 (20:30→21:00)
[2019-12-10] MEDS: ATORVASTATIN CALCIUM 20 MG TABLET PO SCH (20:35)
[2019-12-10] MEDS: DONEPEZIL HCL 5 MG TABLET. PO SCH (20:36)
[2019-12-10 21:43] VITALS: BP 180/82
[2019-12-10] MEDS: ACETAMINOPHEN 325 MG TABLET PO PRN (21:47)
[2019-12-10 22:54] VITALS: BP 176/76
--- NOTE | 2019-12-10 23:15 | PN ---
DATE: SUBJECTIVE: The patient admitted with multiple medical problems including some chest pain and paroxysmal atrial fibrillation, generalized weakness, doing a little bit better, but still very weak. The patient is being monitored carefully. OBJECTIVE: VITAL SIGNS: Blood pressure is up to 170/70, respiratory rate 18, pulse 55, afebrile. GENERAL: The patient is alert and oriented. LUNGS: Diminished, but clear. CARDIOVASCULAR: Stable. EXTREMITIES: The patient has marked weakness to her extremities with poor movement. LABORATORY DATA: Hemoglobin 9.9 and 30. The patient continues to have elevated troponins, but Cardiology is monitoring that and will continue to work with rehab, PT, OT for rehabilitation. MARIOLA MICHAUD MD DR: EMILY/althea JOB#: [id number] / [id number]
[2019-12-11 05:34] VITALS: BP 132/72
[2019-12-11] MEDS: LEVOTHYROXINE 50 MCG TABLET PO SCH (06:19)
[2019-12-11] MEDS: PROPAFENONE 150 MG TABLET. PO SCH ×3 (06:20→20:39)
[2019-12-11] MEDS: PANTOPRAZOLE 40 MG TABLET. PO SCH (08:08)
[2019-12-11] MEDS: CETIRIZINE HCL 10 MG TABLET PO SCH (08:09)
[2019-12-11] MEDS: APIXABAN 5 MG TABLET. PO SCH ×2 (08:09→20:39)
[2019-12-11] MEDS: CHOLECALCIFEROL (VITAMIN D3) 1,000 UNIT TABLET PO SCH (08:09)
[2019-12-11] MEDS: NON FORMULARY ITEM PO SCH ×2 (09:00→20:38)
[2019-12-11] MEDS: DICLOFENAC SODIUM 1% TOPICAL GEL 100GM TUBE. TP SCH ×4 (09:00→20:39)
[2019-12-11 11:39] VITALS: BP 146/65
[2019-12-11 15:35] VITALS: BP 172/69
[2019-12-11 19:32] VITALS: BP 173/79
[2019-12-11] MEDS: DONEPEZIL HCL 5 MG TABLET. PO SCH (20:40)
[2019-12-11] MEDS: ATORVASTATIN CALCIUM 20 MG TABLET PO SCH (20:40)
[2019-12-11] MEDS: ACETAMINOPHEN 325 MG TABLET PO PRN (20:41)
[2019-12-11 22:39] VITALS: BP 163/72
--- NOTE | 2019-12-11 23:01 | PN ---
DATE: SUBJECTIVE: A 74-year-old female in with generalized weakness and alike. The patient is being able to mobilize somewhat. She has paroxysmal atrial fibrillation. She has not had any further chest pain. She continues to receive PT, OT and we will continue to monitor her on that. Hopefully, ready for placement in a facility for rehabilitation. OBJECTIVE: VITAL SIGNS: Blood pressure 163/70, respiratory rate 20, pulse 60, afebrile. GENERAL: The patient is alert and oriented. LUNGS: Diminished, but basically clear. CARDIOVASCULAR: Irregularly irregular rhythm. ABDOMEN: Soft, protuberant. EXTREMITIES: No clubbing, cyanosis. Generalized weakness to her extremities. NEUROLOGIC: Intact otherwise. IMPRESSION AND PLAN: Therefore, chest pain, paroxysmal atrial fibrillation, generalized weakness, hypertension, urinary urgency, hyperlipidemia, morbid obesity, type 2 diabetes. Continue with rehab, PT, OT. MARIOLA MICHAUD MD DR: EMILY/althea JOB#: [id number] / [id number]
[2019-12-12 05:24] VITALS: BP 162/71
[2019-12-12] MEDS: PROPAFENONE 150 MG TABLET. PO SCH ×2 (05:33→13:16)
[2019-12-12] MEDS: LEVOTHYROXINE 50 MCG TABLET PO SCH (05:34)
[2019-12-12] MEDS: CETIRIZINE HCL 10 MG TABLET PO SCH (08:47)
[2019-12-12] MEDS: APIXABAN 5 MG TABLET. PO SCH (08:47)
[2019-12-12] MEDS: CHOLECALCIFEROL (VITAMIN D3) 1,000 UNIT TABLET PO SCH (08:47)
[2019-12-12] MEDS: DICLOFENAC SODIUM 1% TOPICAL GEL 100GM TUBE. TP SCH ×2 (08:48→13:00)
[2019-12-12] MEDS: PANTOPRAZOLE 40 MG TABLET. PO SCH (08:48)
[2019-12-12] MEDS: NON FORMULARY ITEM PO SCH (08:53)
[2019-12-12] MEDS: ACETAMINOPHEN 325 MG TABLET PO PRN (09:35)
[2019-12-12 10:32] VITALS: BP 172/73
--- NOTE | 2019-12-12 13:06 | DS ---
DATE OF DISCHARGE: HOSPITAL COURSE: This is a very pleasant 74-year-old female who came in with generalized weakness, had some chest discomfort and paroxysmal atrial fibrillation. The patient was admitted and placed on evaluation with Cardiology. They cleared her from their perspective as they did not see any acute problems there. She did have problems with her blood pressure. Her hemoglobin was slightly low at 9.9 and 30. The patient otherwise made good progress. She continued with PT, OT as noted. The patient had an echocardiogram that showed some left ventricular hypertrophy with an ejection fraction of 50-55% with slight global hypokinesis. She will be followed up with her campus recruiting coordinator for that. Otherwise, her labs did show the anemia of 9.9 and 30 as well as the severe protein malnutrition. PLAN: The patient will be discharged home. Follow up as an outpatient, home health. She will be on a heart healthy diabetic diet and make further evaluation on her as an outpatient. ADDENDUM DISCHARGE INSTRUCTIONS: This 74-year-old female discharged today. She was actually transferred to [facility] rather than going home, so she was sent to a rehab facility for further evaluation and rehabilitation. MARIOLA MICHAUD MD DR: EMILY/althea JOB#: [id number] / [id number]
[2019-12-12 14:42] VITALS: BP 183/74
[2019-12-12 19:07] LABS: ANA INTERP Negative (.)
== END 2019-12-12 16:31 | disposition home health service (06) | DRG 308 ==
LOC: 1 SOUTH 13:09
PROVIDERS: ADMIT Family Medicine; ATTEND Family Medicine
DX: I48.0 Paroxysmal atrial fibrillation (principal); E43 Unspecified severe protein-calorie malnutrition; D64.9 Anemia, unspecified; E03.9 Hypothyroidism, unspecified; E66.01 Morbid (severe) obesity due to excess calories; E78.5 Hyperlipidemia, unspecified; I11.9 Hypertensive heart disease without heart failure; Z90.710 Acquired absence of both cervix and uterus; R07.89 Other chest pain; R39.15 Urgency of urination; Z68.39 Body mass index [BMI] 39.0-39.9, adult; Z88.2 Allergy status to sulfonamides; Z88.8 Allergy status to other drugs, medicaments and biological substances; Z90.49 Acquired absence of other specified parts of digestive tract; I12.9 Hypertensive chronic kidney disease with stage 1 through stage 4 chronic kidney disease, or unspecified chronic kidney disease; E11.22 Type 2 diabetes mellitus with diabetic chronic kidney disease; N18.3 Chronic kidney disease, stage 3 (moderate); Z79.4 Long term (current) use of insulin
CPT/HCPCS: 36415; 70450; 71045; 76536; 78580; 80053; 80061; 81001; 82550; 83036; 84443; 84484; 85025; 85379; 85651; 86038; 87086; 87804; 93005; 93306; 96374; A9540; 97110; 97116; J7030

== ENCOUNTER → 2020-02-04 | Outpatient (CLI) | payer BC, MEDICARE ==
[~2020-02-04] MED LIST changes: +ATOR40TA59 PO; +CETI10TA30 PO; +CHOL40003 PO; +DICL1KIT14 TP; +DONE5TAB7 PO; +ESTR0.62 PO; +LEVO50TA5 PO; +PANT40TA5 PO; +PROP225C3 PO; +TUMERIC PO
[2020-02-04 10:04] LABS: CALCIUM 8.3 mg/dL (8.5-10.1); CREATININE 1.3 mg/dL (0.6-1.0); GFR 40.3; POTASSIUM 3.8 mmol/L (3.5-5.1)
== END ==
LOC: LAB 09:22
PROVIDERS: ATTEND Nurse Practitioner
DX: I10 Essential (primary) hypertension (principal)
CPT/HCPCS: 36415; 80048

== ENCOUNTER 2020-03-20 04:51 | Inpatient (IN) | payer MEDICARE, BC ==
[2020-03-20] VITALS (8 sets, daily range): BP systolic 91–190; BP diastolic 56–81
[~2020-03-20] VITALS: Ht 170.2 cm; Wt 111.7 kg
--- NOTE | 2020-03-20 05:06 | PHYS DOC ---
Past History Past Medical History: A-Fib, High Cholesterol, Hypertension, Hypothyroid (CHAIM HAWTHORNE DO) Past Surgical History: Appendectomy, Cholecystectomy (CHAIM HAWTHORNE DO) Smoking: Non-smoker Alcohol Use: None Drug Use: None (CHAIM HAWTHORNE DO) General Adult EDM: Chief Complaint: MECHANICAL FALL, weakness HPI: HPI: Patient is a 74 year old female who presents via EMS for evaluation after an e pisode where she became weak and nearly fell. There is no actual reported injury however. Patient states she feels "weak" and that her legs gave out. Patient has had similar episodes in the past but not for a couple of months. Patient lives at home with her and grandson. Although her is currently in rehab. Patient has a history of chronic atrial fibrillation and is on Eliquis. Patient denies any chest pain but did have some abdominal discomfort earlier this morning. Patient denies any nausea or vomiting or diarrhea. Dr. Michaud is her physician (CHAIM HAWTHORNE DO) Review of Systems: Review of Systems: Constitutional: Denies fever or chills Eyes: Denies change in visual acuity HENT: Denies nasal congestion or sore throat Respiratory: Denies cough, has mild shortness of breath Cardiovascular: Denies chest pain, has mild edema GI: mild left side abdominal pain, no nausea or vomiting, no bloody stools or diarrhea : Denies dysuria Musculoskeletal: has chronic back pain or joint pain Integument: Denies rash Neurologic: Denies headache, focal weakness or sensory changes Endocrine: Denies polyuria or polydipsia Lymphatic: Denies swollen glands Psychiatric: Denies depression or anxiety (CHAIM HAWTHORNE DO) Heart Score: HEART Score for Chest Pain: HEART Score for Chest Pain Response (Comments) Value History Moderately Suspicious 1 ECG Normal 0 Age > 65 2 Risk Factors 1 or 2 Risk Factors 1 Troponin < Normal Limit 0 Total 4 Risk Factors: Risk Factors: DM, Current or recent (<one month) smoker, HTN, HLP, family history of CAD, obesity. Risk Scores: Score 0 - 3: 2.5% MACE over next 6 weeks - Discharge Home Score 4 - 6: 20.3% MACE over next 6 weeks - Admit for Clinical Observation Score 7 - 10: 72.7% MACE over next 6 weeks - Early Invasive Strategies (CHAIM HAWTHORNE DO) Current Medications: Current Meds: Current Medications Medications (Trade) Dose Ordered Sig/Harry Start Time Stop Time Status Last Admin Dose Admin Sodium Chloride 1,000 ml @ 75 mls/hr 1X ONCE 03/20/20 05:15 03/20/20 18:34 UNV (CHAIM HAWTHORNE DO) Allergies: Allergies: Allergies Coded Allergies Type Severity Reaction Last Updated Verified Sulfa (Sulfonamide Antibiotics) Allergy Intermediate Swelling 09/22/17 Yes dronedarone Allergy Intermediate Swelling 09/22/17 Yes (CHAIM HAWTHORNE DO) Physical Exam: PE: Constitutional: Well developed, well nourished, mild to moderate distress, non- toxic appearance. [] HENT: Normocephalic, atraumatic, bilateral external ears normal, oropharynx moist, no oral exudates, nose normal. [] Eyes: PERRL, EOMI, conjunctiva normal, no discharge. [] Neck: Normal range of motion, no tenderness, supple, no stridor. [] Cardiovascular:Heart rate regular rhythm, has murmur [] Lungs & Thorax: Bilateral breath sounds clear to auscultation [] Abdomen: Bowel sounds normal, soft, no tenderness, no masses, no pulsatile masses. [] Skin: Warm, dry, no erythema, no rash. [] Back: bilateral paraspinal tenderness. [] Extremities: No tenderness, no cyanosis, no clubbing, ROM intact, mild edema. [] Neurologic: Alert and oriented X 3, normal motor function, normal sensory function, no focal deficits noted. [] Psychologic: flat affect, judgement normal, mood normal. [] (CHAIM HAWTHORNE DO) Current Patient Data: Vital Signs: Vital Signs Date Time Temp Pulse Resp B/P (MAP) Pulse Ox O2 Delivery O2 Flow Rate FiO2 03/20/20 04:59 97.7 55 20 156/73 (100) 100 Room Air (CHAIM HAWTHORNE DO) EKG: EKG: EKG read at 0521 AM, sinus bradycardia rate 54, leftward axis, nonspecific ST segment changes, nonspecific intraventricular block, abnormal EKG, not STEMI [] (CHAIM HAWTHORNE DO) Radiology/Procedures: Radiology/Procedures: [address] [address] IMAGING REPORT Signed PATIENT: MARRTERE ACCOUNT: [id number] : 1945 LOCATION: ER AGE: 74 SEX: F EXAM STATUS: REG ER ORD. PHYSICIAN: CHAIM HAWTHORNE DO REASON: weakness, near syncope, on eliquis PROCEDURE: CT HEAD WO CONTRAST EXAM: CT HEAD WITHOUT CONTRAST. HISTORY: Weakness, syncope, anticoagulated. TECHNIQUE: Computed tomography of the head was performed without intravenous contrast. One or more of the following individualized dose reduction techniques were utilized for this examination: 1. Automated exposure control. 2. Adjustment of the mA and/or kV according to patient size. 3. Use of iterative reconstruction technique. COMPARISON: 12/08/2019. FINDINGS: There is no intracranial hemorrhage. There is a chronic lacunar infarct in the left cerebellar hemisphere. The ventricles are normal in size and position for patient age. There is a small mucus retention cyst in the left maxillary sinus. Post operative changes are noted along both globes. The temporal bones are unremarkable. The calvarium reveals no suspicious lesions. IMPRESSION: 1. No acute intracranial findings. 2. Chronic left cerebellar lacunar infarct. Electronically signed by: Henok Hogan MD (03/20/2020 5:26 AM) [facility] DICTATED AND SIGNED BY: LA NENA HOGAN MD DATE: 03/20/20525 CC: MARIOLA MICHAUD MD; CHAIM HAWTHORNE DO ~ [] Impressions: [place] [id number] IMAGING REPORT Signed PATIENT: TERE MARR ACCOUNT: [id number] : 1945 LOCATION: ER AGE: 74 SEX: F EXAM STATUS: REG ER ORD. PHYSICIAN: CHAIM HAWTHORNE DO REASON: Short of air PROCEDURE: CHEST AP ONLY EXAM: CHEST ONE VIEW. HISTORY: Shortness of breath, syncope. COMPARISON: 12/08/2019. FINDINGS: A frontal view of the chest is obtained. There are no confluent infiltrates. There is no pneumothorax or pleural effusion. The heart is mildly enlarged. IMPRESSION: 1. Mild cardiomegaly. Electronically signed by: Henok Hogan MD (03/20/2020 5:28 AM) [facility] DICTATED AND SIGNED BY: LA NENA HOGAN MD DATE: 03/20/20 0528 CC: MARIOLA MICHAUD MD; CHAIM HAWTHORNE DO ~ (CHAIM HAWTHORNE DO) Course & Med Decision Making: Course & Med Decision Making Pertinent Labs and Imaging studies reviewed. (See chart for details) [] (CHAIM HAWTHORNE DO) Course & Med Decision Making The patient's labs are unremarkable. Her urinalysis is negative for infection. The patient is still feeling very weak it is concerned about being able to care for herself at home. I spoke with the admitting physician, Dr. Michaud and he has agreed to admit the patient for further work-up and management. (EMERSON CHOWDHURY DO) Dragon Disclaimer: Dragon Disclaimer: This electronic medical record was generated, in whole or in part, using a voice recognition dictation system. 0615 Care of pt turned over to Dr. Chowdhury at shift change. Some blood had to be redrawn and was sent back to the lab. Pt stable and has no focal deficits or lateralizing signs (CHAIM HAWTHORNE DO) Departure Departure: Impression: Primary Impression: Near syncope Additional Impressions: Generalized weakness History of atrial fibrillation Disposition: ADMITTED INPATIENT Admitting Physician: Mariola Michaud (EMERSON CHOWDHURY DO) Condition: STABLE Referrals: MARIOLA MICHAUD MD (PCP) Justification of Admission: Justification of Admission: Justification of Admission Dx: Comment: Comments: near syncope, generalized weakness (EMERSON CHOWDHURY DO) CHAIM HAWTHORNE DO Mar 20, 2020 05:06 EMERSON CHOWDHURY DO Mar 20, 2020 07:02
[2020-03-20] MEDS ORDERED: IV NORMAL SALINE 1,000ML 1,000 ML IV ONE (05:15)
--- NOTE | 2020-03-20 05:24 | EKG ---
[address] [address] Test Date: 2020-03-20 Test Time: 05:19:14 Pat Name: TERE MARR Department: Room: Gender: F Extension Clerk: : 1945 Requested By: CHAIM HAWTHORNE Order Number: [id number] Reading MD: José Manuel Godoy MD Measurements Intervals Jessie Rate: 54 P: 28 ID: [id number] QRS: -38 QRSD: 140 T: 199 QT: 582 QTc: 560 Interpretive Statements SINUS RHYTHM PROLONGED ID INTERVAL ABNORMAL LEFT AXIS DEVIATION NON SPECIFIC INTRAVENTRICULAR BLOCK ABNORMAL ECG Electronically Signed On 03-20-2020 9:50:08 CDT by José Manuel Godoy MD
--- NOTE | 2020-03-20 05:29 | RAD ---
EXAM: CT HEAD WITHOUT CONTRAST. HISTORY: Weakness, syncope, anticoagulated. TECHNIQUE: Computed tomography of the head was performed without intravenous contrast. One or more of the following individualized dose reduction techniques were utilized for this examination: 1. Automated exposure control. 2. Adjustment of the mA and/or kV according to patient size. 3. Use of iterative reconstruction technique. COMPARISON: 12/08/2019. FINDINGS: There is no intracranial hemorrhage. There is a chronic lacunar infarct in the left cerebellar hemisphere. The ventricles are normal in size and position for patient age. There is a small mucus retention cyst in the left maxillary sinus. Post operative changes are noted along both globes. The temporal bones are unremarkable. The calvarium reveals no suspicious lesions. IMPRESSION: 1. No acute intracranial findings. 2. Chronic left cerebellar lacunar infarct. Electronically signed by: Henok Hogan MD (03/20/2020 5:26 AM) [facility]
--- NOTE | 2020-03-20 05:31 | RAD ---
EXAM: CHEST ONE VIEW. HISTORY: Shortness of breath, syncope. COMPARISON: 12/08/2019. FINDINGS: A frontal view of the chest is obtained. There are no confluent infiltrates. There is no pneumothorax or pleural effusion. The heart is mildly enlarged. IMPRESSION: 1. Mild cardiomegaly. Electronically signed by: Henok Hogan MD (03/20/2020 5:28 AM) [facility]
[2020-03-20 05:45] LABS: BASO # 0.2 x10^3/uL (0.0-0.2); BASO % 2 % (0-3); EOS # 0.1 x10^3/uL (0.0-0.7); EOS % 1 % (0-3); HEMATOCRIT 34.9 % (36.0-47.0); HEMOGLOBIN 11.4 g/dL (12.0-15.5); LYMPH # 2.5 x10^3/uL (1.0-4.8); LYMPH % 32 % (24-48); MEAN CORPUSCULAR HEMOGLOBIN 30 pg (25-35); MEAN CORPUSCULAR HGB CONC 33 g/dL (31-37); MEAN CORPUSCULAR VOLUME 92 fL (79-100); MONO # 0.7 x10^3/uL (0.0-1.1); MONO % 8 % (0-9); NEUT # 4.4 x10^3uL (1.8-7.7); NEUT % 56 % (31-73); PLATELET COUNT 202 x10^3/uL (140-400); RED CELL DISTRIBUTION WIDTH 14.3 % (11.5-14.5); WHITE BLOOD COUNT 7.9 x10^3/uL (4.0-11.0)
[2020-03-20 06:26] LABS: BACTERIA,URINE FEW /HPF (0-FEW); BILIRUBIN,URINE NEG (NEG); CLARITY,URINE HAZY; COLOR,URINE YELLOW; GLUCOSE,URINE NEG (NEG); NITRITE,URINE NEG (NEG); SQUAMOUS EPITHELIAL CELL,UR MANY /LPF; UROBILINOGEN,URINE 0.2 mg/dL (0.2 mg/dL)
[2020-03-20 06:27] LABS: CALCIUM 8.3 mg/dL (8.5-10.1); CREATININE 1.3 mg/dL (0.6-1.0); GFR 40.3; POTASSIUM 4.1 mmol/L (3.5-5.1)
[2020-03-20 06:34] LABS: ALBUMIN 2.9 g/dL (3.4-5.0); ALBUMIN/GLOBULIN RATIO 0.8 (1.0-1.7); TOTAL BILIRUBIN 0.5 mg/dL (0.2-1.0); TOTAL PROTEIN 6.4 g/dL (6.4-8.2)
[2020-03-20] MEDS ORDERED: ONDANSETRON PF 4 MG/2 ML VIAL. IVP PRN (07:15)
[2020-03-20] MEDS: DICLOFENAC SODIUM 1% TOPICAL GEL 100GM TUBE. TP SCH ×4 (10:00→20:31)
--- NOTE | 2020-03-20 10:51 | HP ---
ADMIT DATE: 03/20/2020 HISTORY OF PRESENT ILLNESS: A 74-year-old female who went to the bathroom this morning, got up out of her toilet with some difficulty. Began to walk about 5-10 feet and then hit the floor. The patient has had about 3 episodes of this in the last week. She denies chest pain, shortness of breath, diaphoresis. Just feels lightheaded and falls to the floor. The patient was brought in through the Emergency Room. She denies chest pain, abdominal pain, nausea, vomiting, melena, hematochezia, hematemesis and neurologically outside of the falling. She says she does not have any other symptomatology. PAST MEDICAL AND SURGICAL HISTORY: Medical history is significant for detached retina, tinnitus, aneurysm aortic. She is on anticoagulant therapy. History of diverticulosis, hemorrhoids, obesity, hysterectomy, renal disease, CKD 3, falls and weakness, degenerative disk disease, endocrine disorders, hypothyroidism. Medical symptoms anemia. Vaccinations for pneumonia and tetanus are up-to-date. FAMILY HISTORY: Father with some type of GI disease. Mother, abnormal arrhythmias and diabetes. ALLERGIES: SULFA and DRONEDARONE. SOCIAL HISTORY: The patient denies smoking, alcohol or drug use. Full code. REVIEW OF SYSTEMS: Pretty much as stated in the HPI. Denies any headaches, vision change, blurred vision, double vision. Denies any neurological symptoms per se. Denies any problem with bowels or bladder and otherwise basically no chest pain, shortness of breath and the like. PHYSICAL EXAMINATION: GENERAL: This is a pleasant white female, morbidly obese. VITAL SIGNS: Blood pressure 178/62, respiratory rate 20, pulse anywhere from 51-55, afebrile. HEENT: The patient's head was atraumatic, normocephalic. Eyes: PERRLA without jaundice. The mouth and throat were normal. NECK: Supple. She is complaining of some swelling to the neck, but appears to be in the sternocleidomastoid muscle. LUNGS: The patient's lungs are diminished, but clear. CARDIOVASCULAR: Regular sinus rhythm, S1, S2, without murmur, rub, thrill, or extra heart sounds. ABDOMEN: Soft, nontender. No rebounding, no guarding. Positive bowel sounds. No hepatosplenomegaly was noted. EXTREMITIES: No clubbing, cyanosis, nor edema. NEUROLOGIC: The patient was alert and oriented x 3. Speech fluent, spontaneous, appropriate. Cranial nerves 2-12 are grossly intact. The patient is moving all extremities well. Has good proximal and distal muscle strength. Reflexes are symmetrical. Pulses are distal and normal. Otherwise, speech was fluent and spontaneous. The patient's CT scan of the head was unremarkable except for an old lacunar infarct and chest x-ray was unremarkable. EKG showed possible first-degree AV block and some other abnormalities. The patient's medications were reviewed and she is on Eliquis and propafenone which may be causing some bradycardia. We will recheck her orthostatics, place her on low dose Norvasc to get her blood pressure down, see if we can get her pulse check for orthostatics and monitor accordingly. IMPRESSION: Lightheadedness with syncope and falling, bradycardia, hypertensive, morbid obesity, chronic kidney disease 3, moderate protein malnutrition, leukorrhea. Culture pending on that. Cardiology consult and make further evaluation. Get PT and OT to work with her. MARIOLA MICHAUD MD DR: EMILY/althea JOB#: [id number] / [id number]
[2020-03-20] MEDS: LEVOTHYROXINE 50 MCG TABLET PO SCH (13:46)
[2020-03-20] MEDS ORDERED: PROPAFENONE 150 MG TABLET. PO SCH (14:00)
[2020-03-20] MEDS: amLODIPine BESYLATE 5 MG TABLET PO SCH (15:43)
[2020-03-20] MEDS: DONEPEZIL HCL 5 MG TABLET. PO SCH (15:43)
[2020-03-20] MEDS: PANTOPRAZOLE 40 MG TABLET. PO SCH (15:43)
[2020-03-20] MEDS: CHOLECALCIFEROL (VITAMIN D3) 1,000 UNIT TABLET PO SCH (15:43)
[2020-03-20] MEDS: CETIRIZINE HCL 10 MG TABLET PO SCH (15:43)
[2020-03-20] MEDS ORDERED: CHOL10003 PO (16:04)
--- NOTE | 2020-03-20 16:48 | PDOC2 ---
CARDIAC CONSULT DATE OF CONSULT Date Of Consult DATE: 03/20/20 TIME: 16:36 REASON FOR CONSULT Reason for Consult Near syncope Hypertension Bradycardia REFERRING PHYSICIAN Referring Physician Dr. Rodríguez SOURCE Source: Chart review, Patient HPI History of Present Illness This is a 74 yo female who presented secondary to weakness and near syncopal episode. Patient reports her she got up to use to restroom early this morning. Had difficulty raising up off stool. Took her a number of tries. Was finally able to get up and headed back to her bedroom. Got about half-way there and legs began feeling very weak and heavy. Had difficulty picking up her legs to take the next. She eventually go to the point where she could not move her legs. She reports her legs "folded" underneath her and she subsequently fell to the ground. Did not hit head. No LOC. Denies any precipitating dizziness, diaphoresis, chest pain, shortness of breath, or nausea/vomiting. Had a similar fall the day prior. Was reaching to turn the lamp on and took too long. Legs became weak and she fell. Had a similar fall the week prior as well. PAST MEDICAL HISTORY Past Medical History Paroxysmal atrial fibrillation Orthostatic hypotension Ascending aortic aneurysm Hypertension Hyperlipidemia Hypothyroidism Morbid obesity CKD H/o CVA PAST SURGICAL HISTORY Past Surgical History Hysterectomy Cholecystectomy Retinal detachment repair FAMILY HISTORY Family History: Hypertension SOCIAL HISTORY Smoke: No ALCOHOL: none Drugs: None Lives: with Family CURRENT MEDICATIONS Current Medications Current Medications Sodium Chloride 1,000 ml @ 75 mls/hr 1X ONCE IV Last administered on 03/20/20at 05:32; Start 03/20/20 at 05:15; Stop 03/20/20 at 18:34 Ondansetron HCl (Zofran) 4 mg PRN Q4HRS PRN IVP NAUSEA/VOMITING; Start 03/20/20 at 07:15; Stop 03/21/20 at 07:14 Apixaban (Eliquis) 5 mg BID PO ; Start 03/20/20 at 21:00 Donepezil HCl (Aricept) 5 mg DAILY PO Last administered on 03/20/20at 15:43; Start 03/20/20 at 09:00 Levothyroxine Sodium (Synthroid) 50 mcg DAILY06 PO Last administered on 03/20/20at 13:46; Start 03/20/20 at 10:00 Pantoprazole Sodium (Protonix) 40 mg DAILYAC PO Last administered on 03/20/20at 15:43; Start 03/20/20 at 10:00 Atorvastatin Calcium (Lipitor) 40 mg QHS PO ; Start 03/20/20 at 21:00 Cetirizine HCl (ZyrTEC) 10 mg DAILY PO Last administered on 03/20/20at 15:43; Start 03/20/20 at 10:00 Vitamin D (Vitamin D3) 4,000 unit DAILY PO Last administered on 03/20/20at 15:43; Start 03/20/20 at 10:00 Diclofenac Sodium (Voltaren) 1 bryan QID TP ; Start 03/20/20 at 10:00 Propafenone HCl (Rythmol) 225 mg 0800,1400,2000 PO ; Start 03/20/20 at 14:00 Amlodipine Besylate (Norvasc) 5 mg DAILY PO Last administered on 03/20/20at 15:43; Start 03/20/20 at 10:00 Active Scripts Active Reported Vitamin D3 (Cholecalciferol (Vitamin D3)) 25 Mcg Tablet 25 Mcg PO DAILY08 Levothyroxine Sodium 50 Mcg Tablet 1 Tab PO DAILY06 Diclo Gel (Diclofenac Sodium) 1 Each Kit 1 Each TP QID Premarin (Estrogens, Conjugated) 0.625 Mg Tablet 1 Tab PO MWF Donepezil Hcl 5 Mg Tablet 5 Mg PO DAILY Atorvastatin Calcium 40 Mg Tablet 1 Tab PO DAILY Cetirizine Hcl 10 Mg Tab.chew 10 Mg PO DAILY Eliquis (Apixaban) 5 Mg Tablet 5 Mg PO BID Pantoprazole Sodium 40 Mg Tablet.dr 40 Mg PO DAILY Propafenone Hcl 225 Mg Cap.er.12h 225 Mg PO 8AM, 2PM,8PM [Tumeric] 1,000 Mg PO BID PRN ALLERGIES Allergies: Coded Allergies: Sulfa (Sulfonamide Antibiotics) (Verified Allergy, Intermediate, Swelling, 09/22/17) dronedarone (Verified Allergy, Intermediate, Swelling, 09/22/17) Swelling/weakness/numbness ROS Review of Systems 14 point ROS conducted with pertinent positives noted above in HPI PHYSICAL EXAM General: Alert, Oriented X3, Cooperative, No acute distress HEENT: Atraumatic, Mucous membr. moist/pink Lungs: Clear to auscultation Heart: Regular rate (SB- rate 55), Other (2/6 systolic murmur ) Abdomen: Soft, Other (obese ) Extremities: No edema, Normal pulses Skin: No rashes, No breakdown Neuro: Normal speech, Sensation intact Psych/Mental Status: Mental status NL, Mood NL MUSCULOSKELETAL: Osteoarthritic changes both hands VITALS Vital Signs Vital Signs Date Time Temp Pulse Resp B/P (MAP) Pulse Ox O2 Delivery O2 Flow Rate FiO2 03/20/20 16:00 51 18 170/73 (105) 98 Room Air 03/20/20 15:16 97.6 LABS LABS Laboratory Tests Test 03/20/20 05:30 03/20/20 05:46 03/20/20 05:55 White Blood Count 7.9 x10^3/uL (4.0-11.0) Red Blood Count 3.80 x10^6/uL (3.50-5.40) Hemoglobin 11.4 g/dL (12.0-15.5) Hematocrit 34.9 % (36.0-47.0) Mean Corpuscular Volume 92 fL (79-100) Mean Corpuscular Hemoglobin 30 pg (25-35) Mean Corpuscular Hemoglobin Concent 33 g/dL (31-37) Red Cell Distribution Width 14.3 % (11.5-14.5) Platelet Count 202 x10^3/uL (140-400) Neutrophils (%) (Auto) 56 % (31-73) Lymphocytes (%) (Auto) 32 % (24-48) Monocytes (%) (Auto) 8 % (0-9) Eosinophils (%) (Auto) 1 % (0-3) Basophils (%) (Auto) 2 % (0-3) Neutrophils # (Auto) 4.4 x10^3uL (1.8-7.7) Lymphocytes # (Auto) 2.5 x10^3/uL (1.0-4.8) Monocytes # (Auto) 0.7 x10^3/uL (0.0-1.1) Eosinophils # (Auto) 0.1 x10^3/uL (0.0-0.7) Basophils # (Auto) 0.2 x10^3/uL (0.0-0.2) Troponin I Quantitative < 0.017 ng/mL (0-0.055) Urine Collection Type U cath Urine Color Yellow Urine Clarity Hazy Urine pH 6.0 Urine Specific [place] 1.025 Urine Protein Neg (NEG-TRACE) Urine Glucose (UA) Neg mg/dL (NEG) Urine Ketones (Stick) Neg mg/dL (NEG) Urine Blood Neg (NEG) Urine Nitrite Neg (NEG) Urine Bilirubin Neg (NEG) Urine Urobilinogen Dipstick 0.2 mg/dL (0.2 mg/dL) Urine Leukocyte Esterase Small (NEG) Urine RBC 3-5 /HPF (0-2) Urine WBC 5-10 /HPF (0-4) Urine Squamous Epithelial Cells Many /LPF Urine Bacteria Few /HPF (0-FEW) Urine Mucus Mod /LPF Sodium Level 133 mmol/L (136-145) Potassium Level 4.1 mmol/L (3.5-5.1) Chloride Level 98 mmol/L (98-107) Carbon Dioxide Level 33 mmol/L (21-32) Anion Gap 2 (6-14) Blood Urea Nitrogen 18 mg/dL (7-20) Creatinine 1.3 mg/dL (0.6-1.0) Estimated GFR (Cockcroft-Gault) 40.3 BUN/Creatinine Ratio 14 (6-20) Glucose Level 106 mg/dL (70-99) Calcium Level 8.3 mg/dL (8.5-10.1) Total Bilirubin 0.5 mg/dL (0.2-1.0) Aspartate Amino Transf (AST/SGOT) 18 U/L (15-37) Alanine Aminotransferase (ALT/SGPT) 19 U/L (14-59) Alkaline Phosphatase 96 U/L (46-116) Total Protein 6.4 g/dL (6.4-8.2) Albumin 2.9 g/dL (3.4-5.0) Albumin/Globulin Ratio 0.8 (1.0-1.7) Lipase 94 U/L (73-393) Thyroid Stimulating Hormone (TSH) 1.734 uIU/mL (0.358-3.740) ECHOCARDIOGRAM Echocardiogram <Conclusion> The left ventricular systolic function is low normal. EF 50-55% There is slight global hypokinesis of the left ventricle. The Left Ventricle is mildly to moderately dilated. Doppler and Color-flow revealed moderate mitral regurgitation. Doppler and Color Flow revealed trace to mild tricuspid regurgitation with an estimated PAP of 51 mmHg. DATE: 12/09/19 1505 ASSESSMENT/PLAN Assessment/Plan 1. Weakness, fall. No syncopal event. Patient presently denies any lightheadedness, dizziness. 2. PAFIB; s/p previous CV. on propafenone for rhythm maintenance. QTc 560. El iquis for stroke prophylaxis[facility] 3. Bradycardia, sinus; lowest 49. Mean 55 4. H/o orthostatic hypotension 5. Hypertension; labile 6. Hyperlipidemia; statin 7. Hypothyroidism; TSH on goal 8. Morbid obesity 9. CKD 10. H/o CVA; CT head without acute findings. Chronic infarct noted Recommendations Hold propafenone with prolonged QTc, bradycardia. Avoid AV [place] blocking agents Monitor tele Check orthos. Check blood pressure in bilateral arms Hydralazine IV PRN Encourage adequate hydration Probable poor candidate for long-term OAC given significant, recurrent falls. Would recommend ASA therapy PT/OT Supportive care Could consider outpatient event monitor if patient having dizziness/lightheadedness/syncope. Will defer to primary emt basic FARA JEAN APRN Mar 20, 2020 16:48
[2020-03-20] MEDS ORDERED: hydrALAZINE 20 MG/ML VIAL. IV PRN (17:15)
[2020-03-20] MEDS: ATORVASTATIN CALCIUM 20 MG TABLET PO SCH (20:30)
[2020-03-20] MEDS ORDERED: APIXABAN 5 MG TABLET. PO SCH (21:00)
[2020-03-21] MEDS: LEVOTHYROXINE 50 MCG TABLET PO SCH (05:54)
[2020-03-21 06:11] VITALS: BP 159/69
--- NOTE | 2020-03-21 08:38 | PDOC ---
CARDIO Progress Notes Date & Time Date of Service DATE: 03/21/20 TIME: 08:32 Time of Evaluation 08:32 Subjective Notes No chest pain, SOA, dizziness. Feels tires this am Vitals Vitals Vital Signs Date Time Temp Pulse Resp B/P (MAP) Pulse Ox O2 Delivery O2 Flow Rate FiO2 03/21/20 06:11 97.7 56 16 159/69 (99) 96 Room Air Weight Weight [ ] Input and Output I.O. Intake and Output 03/21/20 07:00 Intake Total 540 ml Balance 540 ml Intake Oral 540 ml # Voids 8 # Bowel Movements 1 Laboratory Labs Laboratory Tests Test 03/20/20 05:30 03/20/20 05:46 03/20/20 05:55 White Blood Count 7.9 x10^3/uL (4.0-11.0) Red Blood Count 3.80 x10^6/uL (3.50-5.40) Hemoglobin 11.4 g/dL (12.0-15.5) Hematocrit 34.9 % (36.0-47.0) Mean Corpuscular Volume 92 fL (79-100) Mean Corpuscular Hemoglobin 30 pg (25-35) Mean Corpuscular Hemoglobin Concent 33 g/dL (31-37) Red Cell Distribution Width 14.3 % (11.5-14.5) Platelet Count 202 x10^3/uL (140-400) Neutrophils (%) (Auto) 56 % (31-73) Lymphocytes (%) (Auto) 32 % (24-48) Monocytes (%) (Auto) 8 % (0-9) Eosinophils (%) (Auto) 1 % (0-3) Basophils (%) (Auto) 2 % (0-3) Neutrophils # (Auto) 4.4 x10^3uL (1.8-7.7) Lymphocytes # (Auto) 2.5 x10^3/uL (1.0-4.8) Monocytes # (Auto) 0.7 x10^3/uL (0.0-1.1) Eosinophils # (Auto) 0.1 x10^3/uL (0.0-0.7) Basophils # (Auto) 0.2 x10^3/uL (0.0-0.2) Troponin I Quantitative < 0.017 ng/mL (0-0.055) Urine Collection Type U cath Urine Color Yellow Urine Clarity Hazy Urine pH 6.0 Urine Specific [place] 1.025 Urine Protein Neg (NEG-TRACE) Urine Glucose (UA) Neg mg/dL (NEG) Urine Ketones (Stick) Neg mg/dL (NEG) Urine Blood Neg (NEG) Urine Nitrite Neg (NEG) Urine Bilirubin Neg (NEG) Urine Urobilinogen Dipstick 0.2 mg/dL (0.2 mg/dL) Urine Leukocyte Esterase Small (NEG) Urine RBC 3-5 /HPF (0-2) Urine WBC 5-10 /HPF (0-4) Urine Squamous Epithelial Cells Many /LPF Urine Bacteria Few /HPF (0-FEW) Urine Mucus Mod /LPF Sodium Level 133 mmol/L (136-145) Potassium Level 4.1 mmol/L (3.5-5.1) Chloride Level 98 mmol/L (98-107) Carbon Dioxide Level 33 mmol/L (21-32) Anion Gap 2 (6-14) Blood Urea Nitrogen 18 mg/dL (7-20) Creatinine 1.3 mg/dL (0.6-1.0) Estimated GFR (Cockcroft-Gault) 40.3 BUN/Creatinine Ratio 14 (6-20) Glucose Level 106 mg/dL (70-99) Calcium Level 8.3 mg/dL (8.5-10.1) Total Bilirubin 0.5 mg/dL (0.2-1.0) Aspartate Amino Transf (AST/SGOT) 18 U/L (15-37) Alanine Aminotransferase (ALT/SGPT) 19 U/L (14-59) Alkaline Phosphatase 96 U/L (46-116) Total Protein 6.4 g/dL (6.4-8.2) Albumin 2.9 g/dL (3.4-5.0) Albumin/Globulin Ratio 0.8 (1.0-1.7) Lipase 94 U/L (73-393) Thyroid Stimulating Hormone (TSH) 1.734 uIU/mL (0.358-3.740) Physical Exams HEENT: Neck Supple W Full Motion Chest: Symmetric Lungs: Clear to Auscultation Heart: S1S2, RRR (SR/SB ), murmurs (2/6 systolic murmur) Abdomen: Soft N/T Extremities: No Edema Neurology: alert, oriented, follow commands Assessment Assessment 1. Weakness, fall. ? orthostasis contributing. 2. PAFIB; s/p previous CV. on propafenone for rhythm maintenance. QTc 560. Eliquis for stroke prophylaxis[facility] 3. Bradycardia, sinus; lowest 49. Mean now 65 4. Orthostatic hypotension SBP 174-107 upon standing. Long standing h/o orthostatic hypotension 5. Hypertension; labile 6. Hyperlipidemia; statin 7. Hypothyroidism; TSH on goal 8. Morbid obesity 9. CKD 10. H/o CVA; CT head without acute findings. Chronic infarct noted Recommendations Hold propafenone with prolonged QTc, bradycardia. Recheck EKG in am; monitor QTc Resume propafenone at 150mg BID when QTc improves Avoid AV marina blocking agents Hold antiHTN therapy IV fluid bolus Support stockings Encourage adequate hydration Allow for high baseline blood pressure Consider Midodrine Poor candidate for long-term OAC given significant, recurrent falls. Would recommend ASA therapy PT/OT Supportive care Could consider outpatient event monitor if patient having dizziness/lightheadedness/syncope. Will defer to primary sourcing manager FARA JEAN APRN Mar 21, 2020 08:38
[2020-03-21] MEDS ORDERED: IV NORMAL SALINE 500ML 500 ML IV ONE (08:45)
[2020-03-21] MEDS: amLODIPine BESYLATE 5 MG TABLET PO SCH (09:00)
[2020-03-21] MEDS: DICLOFENAC SODIUM 1% TOPICAL GEL 100GM TUBE. TP SCH ×4 (09:24→20:21)
[2020-03-21] MEDS: CETIRIZINE HCL 10 MG TABLET PO SCH (09:25)
[2020-03-21] MEDS: PANTOPRAZOLE 40 MG TABLET. PO SCH (09:25)
[2020-03-21] MEDS: ASPIRIN ENTERIC COATED 81 MG TABLET.DR. PO SCH (09:25)
[2020-03-21] MEDS: DONEPEZIL HCL 5 MG TABLET. PO SCH (09:25)
[2020-03-21] MEDS: CHOLECALCIFEROL (VITAMIN D3) 1,000 UNIT TABLET PO SCH (09:25)
[2020-03-21] MEDS ORDERED: MIDODRINE 2.5 MG TABLET PO ONE (09:30)
[2020-03-21 09:31] VITALS: BP 122/70
[2020-03-21] MEDS: MIDODRINE 2.5 MG TABLET PO SCH ×3 (09:48→18:00)
--- NOTE | 2020-03-21 14:56 | PN ---
DATE: SUBJECTIVE: A 74-year-old female in with bradycardia, syncope, lightheadedness. The patient has been very orthostatic hypotension. Blood pressure is dropping ____ down into the 60s at times, otherwise sugar from 160 down to 90 standing up. She has been started on midodrine taken off her antiarrhythmics that have been holding her heart rate down in the 50s. Her labs are basically stable from yesterday. Her thyroid was good. We are doing some other studies and cortisol and all. OBJECTIVE: VITAL SIGNS: Presently blood pressure 122/70, respiratory rate 20, pulse 52, afebrile. GENERAL: The patient is alert and oriented. LUNGS: Diminished throughout, but clear. CARDIOVASCULAR: Regular sinus rhythm. ABDOMEN: Soft, nontender, protuberant. EXTREMITIES: No clubbing, cyanosis or edema. NEUROLOGIC: The patient complains of upper back pain. We will do a sed rate on her. Look for polymyalgia rheumatica ____. Other than that, her x-rays from her chest which would demonstrate the upper back, did not demonstrate anything in particular. The patient continued to be monitored carefully and will make further evaluation on her. IMPRESSION: Lightheadedness, syncope, bradycardia, morbid obesity, ____ protein malnutrition, leukorrhea. PLAN: The patient continued to be monitored carefully, make further evaluation on her as indicated. MARIOLA MICHAUD MD DR: EMILY/althea JOB#: [id number] / [id number]
[2020-03-21 19:05] VITALS: BP 104/65
[2020-03-21 20:00] VITALS: BP_SYST 175; BP_SYST 192; BP_DIAS 75; BP_DIAS 81
[2020-03-21 20:01] VITALS: BP 142/82
[2020-03-21] MEDS: ATORVASTATIN CALCIUM 20 MG TABLET PO SCH (20:21)
[2020-03-21 22:25] VITALS: BP 158/60
[2020-03-22 05:38] VITALS: BP 163/78
[2020-03-22] MEDS: LEVOTHYROXINE 50 MCG TABLET PO SCH (05:58)
[2020-03-22] MEDS: MIDODRINE 2.5 MG TABLET PO SCH ×3 (05:59→17:38)
[2020-03-22] MEDS: CHOLECALCIFEROL (VITAMIN D3) 1,000 UNIT TABLET PO SCH (08:09)
[2020-03-22] MEDS: CETIRIZINE HCL 10 MG TABLET PO SCH (08:09)
[2020-03-22] MEDS: DONEPEZIL HCL 5 MG TABLET. PO SCH (08:10)
[2020-03-22] MEDS: PANTOPRAZOLE 40 MG TABLET. PO SCH (08:10)
[2020-03-22] MEDS: ASPIRIN ENTERIC COATED 81 MG TABLET.DR. PO SCH (08:10)
[2020-03-22] MEDS: DICLOFENAC SODIUM 1% TOPICAL GEL 100GM TUBE. TP SCH ×4 (08:10→20:42)
--- NOTE | 2020-03-22 08:31 | PDOC ---
CARDIO Progress Notes Date & Time Date of Service DATE: 03/22/20 TIME: 08:26 Time of Evaluation 08:26 Subjective Notes feeling tired this am Vitals Vitals Vital Signs Date Time Temp Pulse Resp B/P (MAP) Pulse Ox O2 Delivery O2 Flow Rate FiO2 03/22/20 05:59 54 163/78 03/22/20 05:38 97.5 20 94 Room Air Weight Weight [ ] Input and Output I.O. Intake and Output 03/22/20 07:00 Intake Total 700 ml Balance 700 ml Intake Oral 700 ml # Voids 9 # Bowel Movements 2 Laboratory Labs Laboratory Tests Test 03/21/20 10:20 C-Reactive Protein 1.0 mg/L (0-3.3) Cortisol AM Sample 21.83 ug/dL (4.3-22.4) Physical Exams HEENT: Neck Supple W Full Motion Chest: Symmetric Lungs: Clear to Auscultation Heart: S1S2, RRR (SR/SB ), murmurs (2/6 systolic murmur) Abdomen: Soft N/T Extremities: No Edema Neurology: alert, oriented, follow commands, other (drowsy) Assessment Assessment 1. Weakness, fall. multifactorial with deconditioning, orthostasis 2. PAFIB; maintaining SR/SB. Propafenone on hold due to prolonged QTc. Now improved QTc at 415 3. Bradycardia, sinus; lowest 49. Mean now 60. 4. Orthostatic hypotension; probable autonomic dysfunction 5. Hypertension, postural; blood pressure much more elevated lying down 6. Hyperlipidemia; statin Recommendations Avoid AV marina blocking agents Would recommend alternative to Aricept given continued bradycardia Support stockings Keep HOB elevated ASA therapy Supportive care Consider outpatient referral for workup at syncope clinic. FARA JEAN APRN Mar 22, 2020 08:31
[2020-03-22 12:38] VITALS: BP 90/58
[2020-03-22 15:38] VITALS: BP_SYST 101; BP_SYST 114; BP_DIAS 58; BP_DIAS 63
[2020-03-22 20:03] VITALS: BP 125/55
[2020-03-22] MEDS: ATORVASTATIN CALCIUM 20 MG TABLET PO SCH (20:41)
[2020-03-22] MEDS: MEMANTINE 5 MG TABLET. PO SCH (20:43)
--- NOTE | 2020-03-22 21:25 | EKG ---
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
--- NOTE | 2020-03-22 21:27 | EKG ---
[address] [address] Test Date: 2020-03-22 Test Time: 16:53:39 Pat Name: TERE MARR Department: Room: 107 A Gender: F Novelty Candy Maker: : 1945 Requested By: FARA JEAN Order Number: [id number] Reading MD: Measurements Intervals [place] Rate: 55 P: 46 ID: [id number] QRS: -35 QRSD: 116 T: -18 QT: 398 QTc: 383 Interpretive Statements SINUS RHYTHM ABNORMAL LEFT AXIS DEVIATION R-S TRANSITION ZONE IN V LEADS DISPLACED TO THE LEFT LEFT ANTERIOR FASCICULAR BLOCK LEFT VENTRICULAR HYPERTROPHY ABNORMAL ECG RI6.01 No previous ECG available for comparison
[2020-03-23 00:35] VITALS: BP 173/75
[2020-03-23] MEDS: LEVOTHYROXINE 50 MCG TABLET PO SCH (06:02)
[2020-03-23] MEDS: MIDODRINE 2.5 MG TABLET PO SCH (06:03)
[2020-03-23 06:04] LABS: BASO # 0.1 x10^3/uL (0.0-0.2); BASO % 1 % (0-3); EOS # 0.2 x10^3/uL (0.0-0.7); EOS % 3 % (0-3); HEMATOCRIT 33.3 % (36.0-47.0); HEMOGLOBIN 10.7 g/dL (12.0-15.5); LYMPH # 2.3 x10^3/uL (1.0-4.8); LYMPH % 31 % (24-48); MEAN CORPUSCULAR HEMOGLOBIN 30 pg (25-35); MEAN CORPUSCULAR HGB CONC 32 g/dL (31-37); MEAN CORPUSCULAR VOLUME 92 fL (79-100); MONO # 0.6 x10^3/uL (0.0-1.1); MONO % 9 % (0-9); NEUT % 56 % (31-73); PLATELET COUNT 190 x10^3/uL (140-400); RED BLOOD COUNT 3.62 x10^6/uL (3.50-5.40); RED CELL DISTRIBUTION WIDTH 14.6 % (11.5-14.5); WHITE BLOOD COUNT 7.2 x10^3/uL (4.0-11.0)
[2020-03-23 06:07] VITALS: BP 165/74
[2020-03-23 06:22] LABS: ALBUMIN 2.7 g/dL (3.4-5.0); ALBUMIN/GLOBULIN RATIO 0.8 (1.0-1.7); CREATININE 1.2 mg/dL (0.6-1.0); GFR 44.2; TOTAL BILIRUBIN 0.4 mg/dL (0.2-1.0); TOTAL PROTEIN 5.9 g/dL (6.4-8.2)
--- NOTE | 2020-03-23 07:21 | PN ---
DATE: SUBJECTIVE: A 74-year-old female in with generalized weakness. The patient has been seen by Cardiology and has been doing much better. She has been able to walk ____ with physical and occupational therapy helping her as well. We have been working on her orthostatic blood pressures and they seem to be leveling out much better, although she still has a drop that quite as significant as they were. The midodrine seems to be helping. Her pulse is coming up gradually. OBJECTIVE: VITAL SIGNS: Blood pressure 125/55 sitting, lying down 114/58; pulse still in 56 or so, afebrile. GENERAL: The patient in turn is alert and oriented. LUNGS: Diminished, but basically clear. CARDIOVASCULAR: Regular sinus rhythm, but mckenzie. ABDOMEN: Protuberant, soft, nontender. No rebounding, no guarding. Positive bowel sounds. No hepatosplenomegaly. The patient continued to be monitored carefully. IMPRESSION: Lightheadedness, syncope, orthostatic hypotension, multiple falls. PLAN: As above. Possible discharge to [place] tomorrow. MARIOLA MICHAUD MD DR: EMILY/althea JOB#: [id number] / [id number]
[2020-03-23] MEDS: ASPIRIN ENTERIC COATED 81 MG TABLET.DR. PO SCH (08:06)
[2020-03-23] MEDS: MEMANTINE 5 MG TABLET. PO SCH (08:06)
[2020-03-23] MEDS: PANTOPRAZOLE 40 MG TABLET. PO SCH (08:06)
[2020-03-23] MEDS: CHOLECALCIFEROL (VITAMIN D3) 1,000 UNIT TABLET PO SCH (08:06)
[2020-03-23] MEDS: CETIRIZINE HCL 10 MG TABLET PO SCH (08:06)
[2020-03-23] MEDS: DICLOFENAC SODIUM 1% TOPICAL GEL 100GM TUBE. TP SCH (08:07)
[2020-03-23 10:20] VITALS: BP_SYST 116; BP_SYST 129; BP_DIAS 62; BP_DIAS 73
[2020-03-23 10:21] VITALS: BP 77/57
[2020-03-23] MEDS ORDERED: hydrALAZINE 25 MG TABLET PO SCH ×2 (10:30→14:00)
[2020-03-23] MEDS ORDERED: HYDR-2868 PO (10:36)
[2020-03-23] MEDS ORDERED: ASPI-612 PO (10:36)
--- NOTE | 2020-03-23 10:38 | DISCH ---
DISCHARGE ORDERS DISCHARGE DATE: Mar 23, 2020 CONDITION AT DISCHARGE: Stable Code Status: Full SNF STAY <30 DAYS: Yes HOSPICE: No HOSPICE EVALUATE & TREAT: No ADMIT TO LTAC: No POST DISCHARGE ORDERS: ACTIVITY ORDERS: Activity as tolerated, Avoid exertion, Progressive ambulation WEIGHT BEARING STATUS: Full weight bearing DIET AFTER DISCHARGE: Cardiac CHECKS AFTER DISCHARGE: CHECKS AFTER DISCHARGE: Check blood press - daily (check orthostatic blood pressure 3X's a week) TREATMENT/EQUIPMENT ORDERS: ADAPTIVE EQUIPMENT NEEDED: None DISCHARGE MEDICATIONS: Home Meds Reported Medications Cholecalciferol (Vitamin D3) (Vitamin D3) 25 Mcg Tablet, 25 MCG PO DAILY08 for supplement, TAB 03/20/20 Levothyroxine Sodium (LEVOTHYROXINE SODIUM) 50 Mcg Tablet, 1 TAB PO DAILY06 for hypothriodism, #30 TAB 5 Refills 12/09/19 Diclofenac Sodium (Diclo Gel) 1 Each Kit, 1 EACH TP QID for JOINT PAIN, EACH 12/08/19 Estrogens, Conjugated (PREMARIN) 0.625 Mg Tablet, 1 TAB PO MWF for TREAT SYMPTOMS OF MENOPAUSE, #30 TAB 11 Refills 12/08/19 Donepezil Hcl (DONEPEZIL HCL) 5 Mg Tablet, 5 MG PO DAILY for DECREASE CONFUSION, TAB 12/08/19 Atorvastatin Calcium (ATORVASTATIN CALCIUM) 40 Mg Tablet, 1 TAB PO DAILY for DECREASE CHOLESTEROL LEVEL, #30 TAB 5 Refills 12/08/19 Cetirizine Hcl (CETIRIZINE HCL) 10 Mg Tab.chew, 10 MG PO DAILY for ALLERGY, TA B.CHEW 12/08/19 Apixaban (ELIQUIS) 5 Mg Tablet, 5 MG PO BID for PREVENT BLOOD CLOTS, TAB 12/08/19 Pantoprazole Sodium (PANTOPRAZOLE SODIUM) 40 Mg Tablet.dr, 40 MG PO DAILY for DECREASE GASTRIC ACID, TAB 12/08/19 Propafenone Hcl (PROPAFENONE HCL) 225 Mg Cap.er.12h, 225 MG PO 8AM, 2PM,8PM for IRREGULAR HEART RATE, CAP.SR 12/08/19 [Tumeric] No Conflict Check, 1000 MG PO BID PRN for JOINT SUPPLEMENT 12/08/19 MARIOLA MICHAUD MD Mar 23, 2020 10:38
--- NOTE | 2020-03-23 12:39 | PDOC ---
PROGRESS NOTES Diagnosis Problem Problems Medical Problems: (1) Generalized weakness Status: Acute (2) History of atrial fibrillation Status: Acute (3) Near syncope Status: Acute Assessment 1. Weakness, fall. multifactorial with deconditioning, orthostasis etc. continue PT/OT. 2. PAFIB; maintaining SR/SB. Propafenone was held on admission due to prolonged QTc. Now improved QTc at 415. Resume upon discharge. 3. Bradycardia, sinus; resolved. 4. Orthostatic hypotension; probable autonomic dysfunction. Continue midodrine. 5. Hyperlipidemia; statin Possible discharge to [place] [facility] Subjective Feeling better today. Objective Vital Signs Date Time Temp Pulse Resp B/P (MAP) Pulse Ox O2 Delivery O2 Flow Rate FiO2 03/23/20 10:21 82 77/57 (64) 03/23/20 08:47 Room Air 03/23/20 06:07 97.9 18 96 Intake and Output 03/23/20 07:00 Intake Total 830 ml Balance 830 ml Intake Oral 830 ml # Voids 4 # Bowel Movements 1 Abdomen: Soft, No tenderness Heart: Regular rate Extremities: No edema General: Alert, No acute distress HEENT: Atraumatic, PERRLA Lungs: Normal air movement Neck: Supple Neuro: Normal speech Psych/Mental Status: Mood NL Review of Relevant I have reviewed the following items melisa (where applicable) has been applied. Labs Laboratory Tests Test 03/23/20 05:52 White Blood Count 7.2 x10^3/uL (4.0-11.0) Red Blood Count 3.62 x10^6/uL (3.50-5.40) Hemoglobin 10.7 g/dL (12.0-15.5) L Hematocrit 33.3 % (36.0-47.0) L Mean Corpuscular Volume 92 fL (79-100) Mean Corpuscular Hemoglobin 30 pg (25-35) Mean Corpuscular Hemoglobin Concent 32 g/dL (31-37) Red Cell Distribution Width 14.6 % (11.5-14.5) H Platelet Count 190 x10^3/uL (140-400) Neutrophils (%) (Auto) 56 % (31-73) Lymphocytes (%) (Auto) 31 % (24-48) Monocytes (%) (Auto) 9 % (0-9) Eosinophils (%) (Auto) 3 % (0-3) Basophils (%) (Auto) 1 % (0-3) Neutrophils # (Auto) 4.0 x10^3uL (1.8-7.7) Lymphocytes # (Auto) 2.3 x10^3/uL (1.0-4.8) Monocytes # (Auto) 0.6 x10^3/uL (0.0-1.1) Eosinophils # (Auto) 0.2 x10^3/uL (0.0-0.7) Basophils # (Auto) 0.1 x10^3/uL (0.0-0.2) Sodium Level 137 mmol/L (136-145) Potassium Level 4.0 mmol/L (3.5-5.1) Chloride Level 102 mmol/L (98-107) Carbon Dioxide Level 30 mmol/L (21-32) Anion Gap 5 (6-14) L Blood Urea Nitrogen 23 mg/dL (7-20) H Creatinine 1.2 mg/dL (0.6-1.0) H Estimated GFR (Cockcroft-Gault) 44.2 BUN/Creatinine Ratio 19 (6-20) Glucose Level 107 mg/dL (70-99) H Calcium Level 8.0 mg/dL (8.5-10.1) L Total Bilirubin 0.4 mg/dL (0.2-1.0) Aspartate Amino Transferase (AST) 13 U/L (15-37) L Alanine Aminotransferase (ALT) 17 U/L (14-59) Alkaline Phosphatase 83 U/L (46-116) Total Protein 5.9 g/dL (6.4-8.2) L Albumin 2.7 g/dL (3.4-5.0) L Albumin/Globulin Ratio 0.8 (1.0-1.7) L Medications Current Medications Medications (Trade) Dose Ordered Sig/Harry Route PRN Reason Start Time Stop Time Status Last Admin Dose Admin Memantine (Namenda) 5 mg BID PO 03/22/20 21:00 03/23/20 08:06 Vitals/I & O Vital Signs Date Time Temp Pulse Resp B/P (MAP) Pulse Ox O2 Delivery O2 Flow Rate FiO2 03/23/20 10:21 82 77/57 (64) 03/23/20 08:47 Room Air 03/23/20 06:07 97.9 18 96 I & O 03/22/20 03/22/20 03/23/20 15:00 23:00 07:00 Intake Total 240 ml 590 ml Balance 240 ml 590 ml Justification of Admission: Justification of Admission: Justification of Admission Dx: Yes CHF: Hemodynamic Instability Chronic Renal Failure: Cardiac Arrhythmias ROHAN COLMENARES MD Mar 23, 2020 12:39
== END 2020-03-23 13:20 | DRG 74 ==
LOC: ER 04:51 → 1 SOUTH 07:20
PROVIDERS: ADMIT Family Medicine; ATTEND Family Medicine
DX: G90.8 Other disorders of autonomic nervous system (principal); E44.0 Moderate protein-calorie malnutrition; I48.20 Chronic atrial fibrillation, unspecified; I95.1 Orthostatic hypotension; E03.9 Hypothyroidism, unspecified; E66.01 Morbid (severe) obesity due to excess calories; Z68.38 Body mass index [BMI] 38.0-38.9, adult; E78.00 Pure hypercholesterolemia, unspecified; E78.5 Hyperlipidemia, unspecified; I12.9 Hypertensive chronic kidney disease with stage 1 through stage 4 chronic kidney disease, or unspecified chronic kidney disease; N18.3 Chronic kidney disease, stage 3 (moderate); Z79.01 Long term (current) use of anticoagulants; Z82.49 Family history of ischemic heart disease and other diseases of the circulatory system; Z83.3 Family history of diabetes mellitus; Z86.73 Personal history of transient ischemic attack (TIA), and cerebral infarction without residual deficits; Z90.49 Acquired absence of other specified parts of digestive tract; Z90.710 Acquired absence of both cervix and uterus; E66.9 Obesity, unspecified; K57.90 Diverticulosis of intestine, part unspecified, without perforation or abscess without bleeding; Z88.2 Allergy status to sulfonamides; Z88.8 Allergy status to other drugs, medicaments and biological substances; N89.8 Other specified noninflammatory disorders of vagina
CPT/HCPCS: 36415; 70450; 71045; 80053; 81001; 82533; 83690; 84443; 84484; 85025; 86140; 87299; 93005; J7040; P9612; 97110; 97116; 97530; 97535; 99285-25; J7030

== ENCOUNTER 2020-04-28 07:37 | Inpatient (IN) | payer MEDICARE, BC ==
[~2020-04-28] VITALS: Ht 170.2 cm; Wt 105.7 kg
[~2020-04-28 07:37] MED LIST changes: +ASPI-612 PO; +CHOL10003 PO; +HYDR-2868 PO
[2020-04-28] MEDS ORDERED: ONDANSETRON PF 4 MG/2 ML VIAL. IVP ONE (07:45)
[2020-04-28] MEDS ORDERED: IV NORMAL SALINE 1,000ML 1,000 ML IV ONE (07:45)
--- NOTE | 2020-04-28 08:09 | PHYS DOC ---
Past History Past Medical History: A-Fib, High Cholesterol, Hypertension, Hypothyroid Past Surgical History: Appendectomy, Cholecystectomy Additional Past Surgical Histo: detached retina Smoking: Non-smoker Alcohol Use: None Drug Use: None General Adult EDM: Chief Complaint: MECHANICAL FALL HPI: HPI: 74-year-old female presents via EMS after fall at home. She is having headache and back pain. She hit the left side of her forehead on her walker as she fell. She does not remember what happened. She does not know if she tripped over something or had a syncopal episode. The patient is COVID positive. She was diagnosed 10 days ago on the . "Everyone in my house has COVID". She complains of some tingling in her fingers, but is able to move all of her extremities. She is in a cervical collar. She denies loss of bowel or bladder. She has been tolerating her COVID-19 pretty well at home. No current fever. Review of Systems: Review of Systems: Constitutional: Denies fever or chills Eyes: Denies change in visual acuity HENT: Neck pain Respiratory: Denies cough or shortness of breath Cardiovascular: Denies chest pain or edema GI: Denies abdominal pain, nausea, vomiting, bloody stools or diarrhea : Denies dysuria Musculoskeletal: Denies back pain or joint pain Integument: Denies rash Neurologic: Headache. Tingling in her fingers Endocrine: Denies polyuria or polydipsia Lymphatic: Denies swollen glands Psychiatric: Denies depression or anxiety Heart Score: Risk Factors: Risk Factors: DM, Current or recent (<one month) smoker, HTN, HLP, family hi story of CAD, obesity. Risk Scores: Score 0 - 3: 2.5% MACE over next 6 weeks - Discharge Home Score 4 - 6: 20.3% MACE over next 6 weeks - Admit for Clinical Observation Score 7 - 10: 72.7% MACE over next 6 weeks - Early Invasive Strategies Current Medications: Current Meds: Current Medications Medications (Trade) Dose Ordered Sig/Harry Start Time Stop Time Status Last Admin Dose Admin Ondansetron HCl (Zofran) 4 mg 1X ONCE 04/28/20 07:45 04/28/20 07:47 DC Sodium Chloride 1,000 ml @ 1,000 mls/hr 1X ONCE 04/28/20 07:45 04/28/20 08:44 Allergies: Allergies: Allergies Coded Allergies Type Severity Reaction Last Updated Verified Sulfa (Sulfonamide Antibiotics) Allergy Intermediate Swelling 09/22/17 Yes [email or web address] Allergy Intermediate Swelling 09/22/17 Yes Physical Exam: PE: Constitutional: Well developed, obese, well nourished, no acute distress, non- toxic appearance. [] HENT: Normocephalic, atraumatic, bilateral external ears normal, oropharynx dry, no oral exudates, nose normal. [] Eyes: PERRLA, EOMI, conjunctiva normal, no discharge. [] Neck: In a cervical collar, general bony tenderness. [] Cardiovascular: Heart rate regular rhythm[] Lungs & Thorax: Bilateral breath sounds clear to auscultation [] Abdomen: Bowel sounds normal, soft, no tenderness, no masses, no pulsatile masses. [] Skin: Warm, dry, no erythema, no rash. [] Back: No tenderness, no CVA tenderness. [] Extremities: No tenderness, no cyanosis, no clubbing, ROM intact, no edema. [] Neurologic: Alert and oriented X 3, normal motor function, normal sensory function, no focal deficits noted. [] Psychologic: Affect normal, judgement normal, mood normal. [] EKG: EKG: Sinus rhythm, rate 57, leftward axis, no ST elevations or depressions. [] Radiology/Procedures: Radiology/Procedures: [] Impressions: EXAM: Chest, single view. HISTORY: Syncope. Covid 19 positive. COMPARISON: 03/20/2020. FINDINGS: A frontal view of the chest is obtained. There is no infiltrate, pleural effusion or pneumothorax. The heart is normal in size. IMPRESSION: No acute pulmonary finding. Electronically signed by: Faina De Oliveira MD (04/28/2020 9:08 AM) [id number] DICTATED AND SIGNED BY: FAINA DE OLIVEIRA MD DATE: 04/28/20 09 CC: EMERSON CHOWDHURY DO; MARIOLA MICHAUD MD ~ EXAM: Head and cervical spine CT without contrast. HISTORY: Fall. Dizziness. TECHNIQUE: Computed tomographic images of the head and cervical spine were obtained without contrast. *One or more of the following individualized dose reduction techniques were utilized for this examination: 1. Automated exposure control. 2. Adjustment of the mA and/or kV according to patient size. 3. Use of iterative reconstruction technique. COMPARISON: None. FINDINGS: Head: There is no hemorrhage. There is no mass effect or midline shift. There is no hydrocephalus. There is a small chronic lacunar infarct within the right caudate nucleus. There is also a small chronic infarct within the left cerebellum. There are subtle areas of hypodensity within the cerebral white matter, likely due to chronic small vessel disease. There is mild age-appropriate cerebral volume loss. There is evidence of lens surgery. There is a right scleral band. There is a left maxillary sinus mucous retention cyst. The mastoid air cells are clear. No suspicious calvarial lesion is seen. Cervical spine: There is no fracture. There is no significant listhesis. There is multilevel endplate remodeling and osteophytosis, primarily at C5-C6. There is multilevel facet and uncovertebral arthropathy. The degenerative changes result in mild to moderate left foraminal stenosis at C4-C5 and C5-C6. There is no suspicious osseous lesion. There is suspected right upper lobe atelectasis. IMPRESSION: 1. No acute intracranial finding or evidence of acute cervical spine trauma. 2. 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 3. Bilateral cerebral white matter changes, likely due to chronic small vessel disease. 4. Multilevel degenerative change involving the cervical spine, resulting in left foraminal stenosis at the aforementioned levels. Electronically signed by: Faina De Oliveira MD (04/28/2020 9:11 AM) [id number] DICTATED AND SIGNED BY: FAINA DE OLIVEIRA MD DATE: 04/28/20 09 CC: EMERSON CHOWDHURY DO; MARIOLA MICHAUD MD ~ Course & Med Decision Making: Course & Med Decision Making Pertinent Labs and Imaging studies reviewed. (See chart for details) The patient CT of the head and cervical spine is negative for acute findings. See official report for more details about chronic findings. We have removed her cervical collar. The patient's labs are unremarkable. Her urinalysis is negative for infection. Patient still has a headache. I will give her 15 mg of Toradol, 10 mg Reglan, 25 mg of Benadryl. I spoke with Dr. Michaud and he has accepted the patient for admission and further observation. [facility] the [facility] floor because she is positive. [] Dragisaías Disclaimer: Dragon Disclaimer: This electronic medical record was generated, in whole or in part, using a voice recognition dictation system. Departure Departure: Impression: Primary Impression: Fall Additional Impressions: Syncope Laceration of skin of lip Disposition: ADMITTED INPATIENT Admitting Physician: Mariola Michaud Condition: STABLE Referrals: MARIOLA MICHAUD MD (PCP) Justification of Admission: Justification of Admission: Justification of Admission Dx: Comment: Comments: syncope, fall EMERSON CHOWDHURY DO Apr 28, 2020 08:09
--- NOTE | 2020-04-28 08:13 | EKG ---
[address] [address] Test Date: 2020-04-28 Test Time: 08:00:42 Pat Name: TERE MRAR Department: Room: Gender: F Core Maker: : 1945 Requested By: EMERSON CHOWDHURY Order Number: [id number] Reading MD: Measurements Intervals [place] Rate: 57 P: 48 DC: 204 QRS: -41 QRSD: 120 T: 168 QT: 382 QTc: 375 Interpretive Statements SINUS RHYTHM ABNORMAL LEFT AXIS DEVIATION R-S TRANSITION ZONE IN V LEADS DISPLACED TO THE LEFT LEFT ANTERIOR FASCICULAR BLOCK LVH WITH REPOLARIZATION ABNORMALITY ABNORMAL ECG RI6.02 No previous ECG available for comparison
[2020-04-28 08:19] LABS: BASO % 1 % (0-3); EOS # 0.1 x10^3/uL (0.0-0.7); EOS % 2 % (0-3); HEMATOCRIT 35.9 % (36.0-47.0); HEMOGLOBIN 11.7 g/dL (12.0-15.5); LYMPH % 28 % (24-48); MEAN CORPUSCULAR HEMOGLOBIN 30 pg (25-35); MEAN CORPUSCULAR HGB CONC 33 g/dL (31-37); MEAN CORPUSCULAR VOLUME 92 fL (79-100); MONO # 0.4 x10^3/uL (0.0-1.1); MONO % 5 % (0-9); NEUT # 4.6 x10^3uL (1.8-7.7); NEUT % 65 % (31-73); PLATELET COUNT 175 x10^3/uL (140-400); RED BLOOD COUNT 3.91 x10^6/uL (3.50-5.40); RED CELL DISTRIBUTION WIDTH 14.5 % (11.5-14.5); WHITE BLOOD COUNT 7.1 x10^3/uL (4.0-11.0)
--- NOTE | 2020-04-28 09:10 | RAD ---
EXAM: Chest, single view. HISTORY: Syncope. Covid 19 positive. COMPARISON: 03/20/2020. FINDINGS: A frontal view of the chest is obtained. There is no infiltrate, pleural effusion or pneumothorax. The heart is normal in size. IMPRESSION: No acute pulmonary finding. Electronically signed by: Faina Gonzalez MD (04/28/2020 9:08 AM) [id number]
[2020-04-28 09:14] LABS: CALCIUM 8.1 mg/dL (8.5-10.1); CREATININE 1.2 mg/dL (0.6-1.0); GFR 44.2; POTASSIUM 3.3 mmol/L (3.5-5.1)
--- NOTE | 2020-04-28 09:14 | RAD ---
EXAM: Head and cervical spine CT without contrast. HISTORY: Fall. Dizziness. TECHNIQUE: Computed tomographic images of the head and cervical spine were obtained without contrast. *One or more of the following individualized dose reduction techniques were utilized for this examination: 1. Automated exposure control. 2. Adjustment of the mA and/or kV according to patient size. 3. Use of iterative reconstruction technique. COMPARISON: None. FINDINGS: Head: There is no hemorrhage. There is no mass effect or midline shift. There is no hydrocephalus. There is a small chronic lacunar infarct within the right caudate nucleus. There is also a small chronic infarct within the left cerebellum. There are subtle areas of hypodensity within the cerebral white matter, likely due to chronic small vessel disease. There is mild age-appropriate cerebral volume loss. There is evidence of lens surgery. There is a right scleral band. There is a left maxillary sinus mucous retention cyst. The mastoid air cells are clear. No suspicious calvarial lesion is seen. Cervical spine: There is no fracture. There is no significant listhesis. There is multilevel endplate remodeling and osteophytosis, primarily at C5-C6. There is multilevel facet and uncovertebral arthropathy. The degenerative changes result in mild to moderate left foraminal stenosis at C4-C5 and C5-C6. There is no suspicious osseous lesion. There is suspected right upper lobe atelectasis. IMPRESSION: 1. No acute intracranial finding or evidence of acute cervical spine trauma. 2. 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 3. Bilateral cerebral white matter changes, likely due to chronic small vessel disease. 4. Multilevel degenerative change involving the cervical spine, resulting in left foraminal stenosis at the aforementioned levels. Electronically signed by: Faina Gonzalez MD (04/28/2020 9:11 AM) [id number]
[2020-04-28 09:20] LABS: ALBUMIN 2.8 g/dL (3.4-5.0); ALBUMIN/GLOBULIN RATIO 0.8 (1.0-1.7); TOTAL BILIRUBIN 0.8 mg/dL (0.2-1.0); TOTAL PROTEIN 6.2 g/dL (6.4-8.2)
[2020-04-28 09:30] LABS: BILIRUBIN,URINE NEG (NEG); CLARITY,URINE HAZY; COLOR,URINE YELLOW; GLUCOSE,URINE NEG (NEG); NITRITE,URINE NEG (NEG); UROBILINOGEN,URINE 0.2 mg/dL (0.2 mg/dL)
[2020-04-28 09:31] LABS: BACTERIA,URINE 0 /HPF (0-FEW); SQUAMOUS EPITHELIAL CELL,UR FEW /LPF
[2020-04-28] MEDS ORDERED: ONDANSETRON PF 4 MG/2 ML VIAL. IVP PRN (10:00)
[2020-04-28] MEDS ORDERED: METOCLOPRAMIDE HCL 10 MG/2 ML VIAL. IVP ONE (10:00)
[2020-04-28] MEDS ORDERED: diphenhydrAMINE 50 MG/ML VIAL IVP ONE (10:00)
[2020-04-28] MEDS ORDERED: ACETAMINOPHEN 325 MG TABLET PO PRN (10:00)
[2020-04-28] MEDS ORDERED: KETOROLAC 15 MG/ML VIAL. IVP ONE (10:00)
[2020-04-28 12:45] VITALS: BP 175/76
[2020-04-28] MEDS ORDERED: ZOLPIDEM 5 MG TABLET. PO PRN (13:30)
[2020-04-28] MEDS ORDERED: hydrALAZINE 20 MG/ML VIAL. IV PRN (13:30)
[2020-04-28] MEDS ORDERED: ELECTROLYTE (NON-ICU) PROTOCOL MC PRN (13:30)
[2020-04-28] MEDS ORDERED: NEOMYCIN/BACI/POLYMYXIN OPHTH OINTMENT 3.5GM TUBE. OS SCH (14:00)
[2020-04-28] MEDS: hydrALAZINE 25 MG TABLET PO SCH ×2 (15:20→21:02)
[2020-04-28] MEDS: ENOXAPARIN 40 MG/0.4 ML SYRINGE. SQ SCH (15:21)
[2020-04-28] MEDS: PROPAFENONE 150 MG TABLET. PO SCH ×2 (15:21→21:03)
[2020-04-28] MEDS: NEOMYC/POLYMYXN/GRAMICDN OPHTH SOLUTION 10ML BOTTLE. OS SCH ×2 (15:21→21:02)
[2020-04-28] MEDS: MORPHINE SULFATE 2 MG/ML DISP.SYRIN. IV PRN ×2 (15:32→22:30)
[2020-04-28 16:17] VITALS: BP 158/57
[2020-04-28] MEDS: DICLOFENAC SODIUM 1% TOPICAL GEL 100GM TUBE. TP SCH ×2 (17:00→21:00)
[2020-04-28 19:00] VITALS: BP 164/64
[2020-04-28] MEDS ORDERED: ASPI-630 PO (19:06)
[2020-04-28] MEDS ORDERED: MIDO2.5T PO (19:07)
[2020-04-28] MEDS ORDERED: POTASSIUM CHLORIDE 20 MEQ TABLET.ER. PO ONE (19:30)
[2020-04-28 23:05] VITALS: BP 122/46
[2020-04-29] MEDS: DICLOFENAC SODIUM 1% TOPICAL GEL 100GM TUBE. TP SCH ×4 (01:42→20:13)
[2020-04-29] MEDS: MORPHINE SULFATE 2 MG/ML DISP.SYRIN. IV PRN (02:24)
[2020-04-29 03:00] VITALS: BP 134/48
[2020-04-29] MEDS: LEVOTHYROXINE 50 MCG TABLET PO SCH (05:42)
[2020-04-29 06:53] LABS: BASO % 0 % (0-3); EOS # 0.1 x10^3/uL (0.0-0.7); EOS % 2 % (0-3); HEMATOCRIT 34.5 % (36.0-47.0); HEMOGLOBIN 11.1 g/dL (12.0-15.5); LYMPH # 1.1 x10^3/uL (1.0-4.8); LYMPH % 20 % (24-48); MEAN CORPUSCULAR HEMOGLOBIN 30 pg (25-35); MEAN CORPUSCULAR HGB CONC 32 g/dL (31-37); MEAN CORPUSCULAR VOLUME 92 fL (79-100); MONO # 0.6 x10^3/uL (0.0-1.1); MONO % 10 % (0-9); NEUT # 3.8 x10^3uL (1.8-7.7); NEUT % 68 % (31-73); PLATELET COUNT 150 x10^3/uL (140-400); RED BLOOD COUNT 3.73 x10^6/uL (3.50-5.40); RED CELL DISTRIBUTION WIDTH 14.7 % (11.5-14.5); WHITE BLOOD COUNT 5.6 x10^3/uL (4.0-11.0)
[2020-04-29 07:01] LABS: CALCIUM 8.1 mg/dL (8.5-10.1); CREATININE 1.2 mg/dL (0.6-1.0); GFR 44.2; POTASSIUM 4.1 mmol/L (3.5-5.1)
[2020-04-29] MEDS ORDERED: fentaNYL PF 250 MCG/5 ML VIAL IV PRN (07:15)
[2020-04-29 07:42] VITALS: BP 134/48
[2020-04-29] MEDS: DONEPEZIL HCL 5 MG TABLET. PO SCH (08:13)
[2020-04-29] MEDS: PANTOPRAZOLE 40 MG TABLET. PO SCH (08:13)
[2020-04-29] MEDS: CETIRIZINE HCL 10 MG TABLET PO SCH (08:13)
[2020-04-29] MEDS: ATORVASTATIN CALCIUM 20 MG TABLET PO SCH (08:13)
[2020-04-29] MEDS: LACTOBACILLUS RHAMNOSUS GG 1 CAPSULE. PO SCH ×2 (08:13→20:13)
[2020-04-29] MEDS: NEOMYC/POLYMYXN/GRAMICDN OPHTH SOLUTION 10ML BOTTLE. OS SCH ×3 (08:14→20:14)
[2020-04-29] MEDS: PROPAFENONE 150 MG TABLET. PO SCH ×3 (08:16→20:13)
--- NOTE | 2020-04-29 10:05 | PN ---
DATE: SUBJECTIVE: This is a 74-year-old female who was admitted after a fall at home with contusion to her head. She also has severe conjunctivitis and periorbital cellulitis as well. She is receiving IV antibiotic therapy. She is seeming better today, the left eye does not seem to be swollen. She is alert and baseline there. OBJECTIVE: VITAL SIGNS: Blood pressure 134/48, respiratory rate 20, pulse 54. She is afebrile, but she is being held at a COVID-19 unit as she recuperates. Blood pressure initially was approximately over 200/77 and presently as noted has come down nicely to 130/48. LUNGS: Otherwise lungs clear. CARDIOVASCULAR: Stable. ABDOMEN: Protuberant, soft, nontender. EXTREMITIES: No clubbing, cyanosis, nor edema. NEUROLOGIC: Baseline for her. She is moving all extremities, but still very weak. We will receive PT, OT. The patient's sodium and potassium 142 and 4.1, BUN and creatinine 18 and 1.2. Otherwise, she is resting comfortably, making good progress. IMPRESSION: Periorbital cellulitis, syncope, weakness, [id number] infection, severe protein malnutrition. Continue with PT, OT and make further evaluation on her as indicated. MARIOLA MICHAUD MD DR: EMILY/althea JOB#: [id number] / [id number]
[2020-04-29 11:11] VITALS: BP 149/56
[2020-04-29] MEDS: ENOXAPARIN 40 MG/0.4 ML SYRINGE. SQ SCH (12:52)
[2020-04-29 15:00] VITALS: BP 169/61
[2020-04-29 18:05] VITALS: BP 140/57
[2020-04-29 23:00] VITALS: BP 177/68
[2020-04-30] VITALS (8 sets, daily range): BP systolic 93–162; BP diastolic 51–100
[2020-04-30] MEDS: LEVOTHYROXINE 50 MCG TABLET PO SCH (06:33)
[2020-04-30] MEDS: DICLOFENAC SODIUM 1% TOPICAL GEL 100GM TUBE. TP SCH ×4 (06:39→20:39)
[2020-04-30] MEDS: LACTOBACILLUS RHAMNOSUS GG 1 CAPSULE. PO SCH ×2 (09:00→20:38)
[2020-04-30] MEDS: ATORVASTATIN CALCIUM 20 MG TABLET PO SCH (09:00)
[2020-04-30] MEDS: CETIRIZINE HCL 10 MG TABLET PO SCH (09:00)
[2020-04-30] MEDS: PROPAFENONE 150 MG TABLET. PO SCH ×3 (09:02→20:38)
[2020-04-30] MEDS: PANTOPRAZOLE 40 MG TABLET. PO SCH (09:02)
[2020-04-30] MEDS: ASPIRIN ENTERIC COATED 81 MG TABLET.DR. PO SCH (09:02)
[2020-04-30] MEDS: DONEPEZIL HCL 5 MG TABLET. PO SCH (09:03)
[2020-04-30] MEDS: NEOMYC/POLYMYXN/GRAMICDN OPHTH SOLUTION 10ML BOTTLE. OS SCH ×3 (09:03→20:38)
--- NOTE | 2020-04-30 09:40 | PN ---
DATE: SUBJECTIVE: Positive COVID-19. She is resting fairly comfortably, making fairly good progress overall, seems to be improving. The left eye is less swollen, but still swollen in the upper eyelid, but the infection around the eye seems to be improving. We have used IV Rocephin. Her pupils are reactive. There is lot of matting in that left eyelashes. We need to remove that. Cultures from that area are still pending. Her urine had no growth. OBJECTIVE: VITAL SIGNS: Her blood pressure was 160/60, respiratory rate 15, pulse 60, afebrile. GENERAL: The patient is alert and oriented. She is speaking fluently, spontaneously, full speech. LUNGS: Diminished, but clear. CARDIOVASCULAR: Stable. ABDOMEN: Soft, nontender. IMPRESSION: COVID-19, respiratory distress, generalized weakness, syncope, essential hypertension, obesity, weight loss, abnormal hyperglycemia, severe protein malnutrition. Continue with PT, OT on her and make further adjustments on her medications for respiratory as well as cardiac issues. MARIOLA MICHAUD MD DR: EMILY/althea JOB#: [id number] / [id number]
[2020-04-30] MEDS: ENOXAPARIN 40 MG/0.4 ML SYRINGE. SQ SCH (14:00)
[2020-04-30] MEDS: hydrALAZINE 25 MG TABLET PO SCH ×2 (14:28→21:04)
[2020-04-30] MEDS: CYCLOBENZAPRINE 10 MG TABLET. PO PRN (17:14)
[2020-05-01] VITALS (9 sets, daily range): BP systolic 106–181; BP diastolic 56–82
[2020-05-01] MEDS: LEVOTHYROXINE 50 MCG TABLET PO SCH (05:50)
[2020-05-01] MEDS: CETIRIZINE HCL 10 MG TABLET PO SCH (08:46)
[2020-05-01] MEDS: hydrALAZINE 25 MG TABLET PO SCH ×2 (08:46→09:00)
[2020-05-01] MEDS: ATORVASTATIN CALCIUM 20 MG TABLET PO SCH (08:46)
[2020-05-01] MEDS: PROPAFENONE 150 MG TABLET. PO SCH ×3 (08:46→20:23)
[2020-05-01] MEDS: PANTOPRAZOLE 40 MG TABLET. PO SCH (08:46)
[2020-05-01] MEDS: LACTOBACILLUS RHAMNOSUS GG 1 CAPSULE. PO SCH ×2 (08:46→20:23)
[2020-05-01] MEDS: DONEPEZIL HCL 5 MG TABLET. PO SCH (08:47)
[2020-05-01] MEDS: NEOMYC/POLYMYXN/GRAMICDN OPHTH SOLUTION 10ML BOTTLE. OS SCH ×3 (08:47→20:22)
[2020-05-01] MEDS: DICLOFENAC SODIUM 1% TOPICAL GEL 100GM TUBE. TP SCH ×4 (08:47→20:22)
[2020-05-01] MEDS: MIDODRINE 2.5 MG TABLET PO SCH ×2 (11:00→16:00)
[2020-05-01 11:37] LABS: BASO # 0.1 x10^3/uL (0.0-0.2); BASO % 1 % (0-3); EOS # 0.2 x10^3/uL (0.0-0.7); EOS % 4 % (0-3); HEMATOCRIT 33.6 % (36.0-47.0); HEMOGLOBIN 10.9 g/dL (12.0-15.5); LYMPH # 1.1 x10^3/uL (1.0-4.8); LYMPH % 20 % (24-48); MEAN CORPUSCULAR HEMOGLOBIN 30 pg (25-35); MEAN CORPUSCULAR HGB CONC 32 g/dL (31-37); MEAN CORPUSCULAR VOLUME 92 fL (79-100); MONO # 0.4 x10^3/uL (0.0-1.1); MONO % 8 % (0-9); NEUT # 3.6 x10^3uL (1.8-7.7); NEUT % 67 % (31-73); PLATELET COUNT 157 x10^3/uL (140-400); RED BLOOD COUNT 3.64 x10^6/uL (3.50-5.40); RED CELL DISTRIBUTION WIDTH 14.8 % (11.5-14.5); WHITE BLOOD COUNT 5.4 x10^3/uL (4.0-11.0)
[2020-05-01] MEDS: ENOXAPARIN 40 MG/0.4 ML SYRINGE. SQ SCH (12:34)
[2020-05-01 12:41] LABS: ALBUMIN 2.6 g/dL (3.4-5.0); ALBUMIN/GLOBULIN RATIO 0.8 (1.0-1.7); CALCIUM 8.2 mg/dL (8.5-10.1); CREATININE 1.2 mg/dL (0.6-1.0); GFR 44.2; POTASSIUM 4.1 mmol/L (3.5-5.1); TOTAL BILIRUBIN 0.6 mg/dL (0.2-1.0)
[2020-05-01] MEDS: CYCLOBENZAPRINE 10 MG TABLET. PO PRN (20:23)
--- NOTE | 2020-05-01 22:22 | PN ---
DATE: 05/01/2020 A 74-year-old female came in with SARS 19 and very weak and debilitated. The patient was getting physical and occupational therapy, got markedly orthostatic with blood pressure dropped down in the 70s/40s, laid down, came back up to 160/56, respiratory rate 18, pulse 55. The patient looked extremely pale and somewhat diaphoretic. Denied chest pain, shortness of breath. Repeat on her hemoglobin was only 10.9 and 33 so no significant drop ____ 142 and 4.1, BUN and creatinine 22 and 1.2, glucose 128. The patient was held on her blood pressure medications and put on GRAYSON hoses. Will continue to be monitored carefully. Her left eye seems to be improving gradually and making good progress with that as indicated. IMPRESSION: Therefore, periorbital cellulitis, syncope, weakness, post COVID-19 infection, severe protein malnutrition. Continue on present drug regimen, consider possible placement in a supervised recuperation center. MARIOLA MICHAUD MD DR: EMILY/althea JOB#: [id number] / [id number]
[2020-05-02 03:15] VITALS: BP 166/43
[2020-05-02 04:05] VITALS: BP 164/54
[2020-05-02] MEDS: LEVOTHYROXINE 50 MCG TABLET PO SCH (05:27)
[2020-05-02 05:30] VITALS: BP 175/61
[2020-05-02 05:55] LABS: BASO # 0.1 x10^3/uL (0.0-0.2); BASO % 3 % (0-3); EOS # 0.3 x10^3/uL (0.0-0.7); EOS % 6 % (0-3); HEMATOCRIT 34.1 % (36.0-47.0); LYMPH # 1.6 x10^3/uL (1.0-4.8); LYMPH % 27 % (24-48); MEAN CORPUSCULAR HEMOGLOBIN 30 pg (25-35); MEAN CORPUSCULAR HGB CONC 32 g/dL (31-37); MEAN CORPUSCULAR VOLUME 92 fL (79-100); MONO # 0.5 x10^3/uL (0.0-1.1); MONO % 8 % (0-9); NEUT # 3.4 x10^3uL (1.8-7.7); NEUT % 57 % (31-73); PLATELET COUNT 166 x10^3/uL (140-400); RED BLOOD COUNT 3.71 x10^6/uL (3.50-5.40); RED CELL DISTRIBUTION WIDTH 14.4 % (11.5-14.5)
[2020-05-02 06:02] LABS: CREATININE 1.1 mg/dL (0.6-1.0); GFR 48.8; POTASSIUM 3.7 mmol/L (3.5-5.1)
[2020-05-02 06:14] LABS: % ATYL 1 % (0-0); % BASOS 2 % (0-3); % EOS 1 % (0-5); % LYMPHS 29 % (24-48); % MONOS 7 % (0-10); % SEGS 60 % (35-66)
[2020-05-02 06:16] LABS: PLT ESTIMATE ADEQUATE (ADEQUATE)
[2020-05-02 06:18] LABS: OVALOCYTES PRESENT
[2020-05-02] MEDS: ATORVASTATIN CALCIUM 20 MG TABLET PO SCH (08:43)
[2020-05-02] MEDS: ASPIRIN ENTERIC COATED 81 MG TABLET.DR. PO SCH (08:43)
[2020-05-02] MEDS: LACTOBACILLUS RHAMNOSUS GG 1 CAPSULE. PO SCH (08:43)
[2020-05-02] MEDS: NEOMYC/POLYMYXN/GRAMICDN OPHTH SOLUTION 10ML BOTTLE. OS SCH ×2 (08:44→13:31)
[2020-05-02] MEDS: DONEPEZIL HCL 5 MG TABLET. PO SCH (08:44)
[2020-05-02] MEDS: PROPAFENONE 150 MG TABLET. PO SCH ×2 (08:44→13:31)
[2020-05-02] MEDS: DICLOFENAC SODIUM 1% TOPICAL GEL 100GM TUBE. TP SCH ×2 (08:45→13:30)
[2020-05-02] MEDS: CETIRIZINE HCL 10 MG TABLET PO SCH (08:45)
[2020-05-02] MEDS: PANTOPRAZOLE 40 MG TABLET. PO SCH (08:45)
--- NOTE | 2020-05-02 10:05 | DISCH ---
DISCHARGE ORDERS DISCHARGE DATE: May 02, 2020 FINAL DIAGNOSIS \covid, falls with weakness CONDITION AT DISCHARGE: Stable Code Status: Full SNF STAY <30 DAYS: Yes HOSPICE: No HOSPICE EVALUATE & TREAT: No ADMIT TO LTAC: No POST DISCHARGE ORDERS: ACTIVITY ORDERS: Activity as tolerated WEIGHT BEARING STATUS: Full weight bearing DIET AFTER DISCHARGE: Cardiac CHECKS AFTER DISCHARGE: CHECKS AFTER DISCHARGE: Check blood press - daily TREATMENT/EQUIPMENT ORDERS: ADAPTIVE EQUIPMENT NEEDED: Walker DISCHARGE MEDICATIONS: Home Meds Reported Medications Midodrine Hcl (MIDODRINE HCL) 2.5 Mg Tablet, 2.5 MG PO BID@1100,1600 for Low BP, TAB SBP <99 04/28/20 Aspirin (ASPIRIN) 81 Mg Tab.chew, 81 MG PO DAILY for prophylaxia, TAB 04/28/20 Cholecalciferol (Vitamin D3) (Vitamin D3) 25 Mcg Tablet, 25 MCG PO DAILY08 for supplement, TAB 03/20/20 Levothyroxine Sodium (LEVOTHYROXINE SODIUM) 50 Mcg Tablet, 1 TAB PO DAILY06 for hypothriodism, #30 TAB 5 Refills 12/09/19 Diclofenac Sodium (Diclo Gel) 1 Each Kit, 1 EACH TP QID for JOINT PAIN, EACH 12/08/19 Donepezil Hcl (DONEPEZIL HCL) 5 Mg Tablet, 5 MG PO DAILY for DECREASE CONFUSION, TAB 12/08/19 Atorvastatin Calcium (ATORVASTATIN CALCIUM) 40 Mg Tablet, 1 TAB PO DAILY for DECREASE CHOLESTEROL LEVEL, #30 TAB 5 Refills 12/08/19 Cetirizine Hcl (CETIRIZINE HCL) 10 Mg Tab.chew, 10 MG PO DAILY for ALLERGY, TAB.CHEW 12/08/19 Pantoprazole Sodium (PANTOPRAZOLE SODIUM) 40 Mg Tablet.dr, 40 MG PO DAILY for DECREASE GASTRIC ACID, TAB 12/08/19 Propafenone Hcl (PROPAFENONE HCL) 225 Mg Cap.er.12h, 150 MG PO 0800,2000 for IRREGULAR HEART RATE, CAP.SR 12/08/19 Discontinued Reported Medications [Tumeric] No Conflict Check, 1000 MG PO BID PRN for JOINT SUPPLEMENT 12/08/19 MARIOLA MICHAUD MD May 02, 2020 10:05
--- NOTE | 2020-05-02 11:14 | EKG ---
[address] [address] Test Date: 2020-05-02 Test Time: 10:44:02 Pat Name: TERE MARR Department: Room: [facility] Gender: F Emergency Room Technician: : [id number] Requested By: MARIOLA MICHAUD Order Number: [id number] Reading MD: Measurements Intervals [place] Rate: 64 P: 48 IA: 210 QRS: -46 QRSD: 118 T: 62 QT: 454 QTc: 473 Interpretive Statements SINUS RHYTHM ABNORMAL LEFT AXIS DEVIATION LEFT ANTERIOR FASCICULAR BLOCK LVH WITH REPOLARIZATION ABNORMALITY PROLONGED QT ABNORMAL ECG RI6.01 No previous ECG available for comparison
[2020-05-02] MEDS ORDERED: HYDROXYCHLOROQUINE (PROGRAM) 200 MG TABLET PO SCH (11:15)
[2020-05-02] MEDS: MIDODRINE 2.5 MG TABLET PO SCH (11:16)
[2020-05-02 11:36] VITALS: BP 149/58
[2020-05-02 13:31] VITALS: BP 151/53
[2020-05-02] MEDS: ENOXAPARIN 40 MG/0.4 ML SYRINGE. SQ SCH (13:31)
--- NOTE | 2020-05-02 14:46 | DS ---
DATE OF DISCHARGE: 05/02/2020 HOSPITAL COURSE: The patient is a 74-year-old female with repeated COVID-19 infection, syncope, falling, and conjunctivitis of her left eye, although that is markedly improved. The patient drops in her blood pressure dramatically whenever they sit her up anywhere, if she is on the bed 176/63, drops down to the 70 systolic when she is sitting up, respiratory rate 20, pulse 70, afebrile. The patient lying down on her back, is in the 150s now. Her lungs are diminished, but clear. The CVS exam is irregularly irregular rhythm. Abdomen is soft, nontender. Extremities: No clubbing, cyanosis, nor edema. The patient otherwise seems to be making fairly good progress overall except for the severe orthostasis. LABORATORY DATA: Hemoglobin and hematocrit 11 and 34, white count 6. Chemistries 143, 3.7. BUN and creatinine 18 and 1.1 with an albumin of 2.6. Her COVID-19 was positive. IMPRESSION: COVID-19 respiratory distress, syncope, weakness, severe orthostasis, essential hypertension, chronic kidney disease stage 3, severe protein malnutrition. PLAN: Continue with the situation, she will be discharged, taken to a facility for rehabilitation, which has been arranged and EMS will take her there for continued rehabilitation care. She has been explained to her and her 's situation. MARIOLA MICHAUD MD DR: EMILY/althea JOB#: [id number] / [id number]
[2020-05-03] MEDS ORDERED: HYDROXYCHLOROQUINE (PROGRAM) 200 MG TABLET PO SCH (09:00)
== END 2020-05-02 16:00 | DRG 177 ==
LOC: ER 07:37 → ICU 08:50
PROVIDERS: ADMIT Family Medicine; ATTEND Family Medicine
DX: U07.1 COVID-19 (principal); E43 Unspecified severe protein-calorie malnutrition; L03.213 Periorbital cellulitis; E03.9 Hypothyroidism, unspecified; E66.9 Obesity, unspecified; E78.00 Pure hypercholesterolemia, unspecified; I48.91 Unspecified atrial fibrillation; I73.9 Peripheral vascular disease, unspecified; H10.89 Other conjunctivitis; I12.9 Hypertensive chronic kidney disease with stage 1 through stage 4 chronic kidney disease, or unspecified chronic kidney disease; N18.3 Chronic kidney disease, stage 3 (moderate); R73.9 Hyperglycemia, unspecified; R06.03 Acute respiratory distress; S01.511A Laceration without foreign body of lip, initial encounter; M48.00 Spinal stenosis, site unspecified; W18.30XA Fall on same level, unspecified, initial encounter; Y92.009 Unspecified place in unspecified non-institutional (private) residence as the place of occurrence of the external cause; Z90.49 Acquired absence of other specified parts of digestive tract; Z68.36 Body mass index [BMI] 36.0-36.9, adult; Z88.2 Allergy status to sulfonamides; Z88.8 Allergy status to other drugs, medicaments and biological substances; Y93.89 Activity, other specified; Y99.8 Other external cause status; Z79.899 Other long term (current) drug therapy
CPT/HCPCS: 36415; 70450; 71045; 72125; 80048; 80053; 81001; 83690; 84484; 85007; 85025; 87070; 87077; 87086; 93005; 96361; 96374; 96375; J0696; J1200; J1650; J1885; J2270; J2405; J2765; J3010; 97110; 97535; 99285-25; J7030; U0003-CS